=== PATIENT | female | born 1950 | race Caucasian/White ===

== ENCOUNTER 2022-04-06 08:14 | Outpatient (CLI) | payer MEDICARE, BC, SELFPAY ==
[2022-04-06 09:37] LABS: Albumin* 4.2 g/dL (3.3-5.0); Chloride* 104 mmol/L (96-114); Sodium* 140 mmol/L (135-149)
[2022-04-06 09:39] LABS: Carbon Dioxide* 33 mmol/L (20-32); Cholesterol* 191 mg/dL (90-199); Creatinine* 0.6 mg/dL (0.5-1.5); Estimated Glomerular Filt Rate 95 ml/min
[2022-04-06 09:40] LABS: Alanine Aminotransferase* 21 U/L (4-35); Alkaline Phosphatase* 95 U/L (40-150); Aspartate Amino Transferase* 26 U/L (12-35); Bilirubin Total* 0.8 mg/dL (0.1-1.5); Blood Urea Nitrogen* 14 mg/dL (7-30); Calcium* 8.9 mg/dL (8.4-10.6); Glucose* 89 mg/dL (60-115); HDL Cholesterol* 61 mg/dL (>=50); LDL Cholesterol Calculated 104 mg/dL (<100); Potassium* 4.1 mmol/L (3.6-5.1); Total Protein* 6.5 g/dL (6.0-8.3); Triglycerides* 130 mg/dL (40-149)
== END 2022-04-06 08:15 | disposition home or self-care (01) ==
LOC: NFLDREF 08:15
PROVIDERS: PCP Family Medicine; Visit Provider Internal Medicine
DX: E04.1 Nontoxic single thyroid nodule (principal); E78.5 Hyperlipidemia, unspecified; R07.9 Chest pain, unspecified
CPT/HCPCS: 76536; 80053; 80061

== ENCOUNTER 2023-08-01 11:36 | Outpatient (CLI) | payer MEDICARE, BC, SELFPAY ==
--- OUTSIDE RECORDS SUMMARY | 2023-08-01 11:39 | XMS_ITS | Clinical Summary ---
Author Name Unknown Organization [facility] Address [place], [place] [address] Care Team Providers Care Rehab Office Coordinator Name Role Phone Sandi Abdullahi MD Primary Care Provider + Family History Medical History Relation Name Comments Cancer-colon Paternal Grandfather Recurre d age 62. 70. Cancer-breast No Family History Cancer-ovarian No Family History Cancer-prostate No Family History Relation Name Status Comments Paternal Grandfather Social History Tobacco Use Types Packs/Day Years Used Date Smoking Tobacco: Never Assessed Sex and Gender Information Value Date Recorded Sex Assigned at Not on file Gender Identity Not on file Sexual Orientation Not on file Obstetrics History Plan of Treatment Health Maintenance Due Date Last Done Comments Tdap 1960 Depression screening for age 12+ 1961 BMI (ht and wt on same day) for age 18+ 05/27/1967 Hepatitis C screening for ag e 18-79 05/27/1967 Tetanus booster 1969 Colonoscopy through age 75 1994 Lipids for age 45-75 1994 Zoster (shingles) series for age 50+ (1 of 2) 05/27/1999 DEXA/DXA scan for age 65+ 2014 Pneumococcal series for age 65+ (1 of 1 - PCV) 2014 Mammogram for age 45-75 02/26/2020 02/26/20 19, 02/22/2018, 02/28/2017, Additional history exists COVID-19 vaccine series (2022-24 season) 2022 Influenza for age 65+ 11/25/2023 Procedures Procedure Name Priority Date/Time Associated Diagnosis Comments XR MAMMO ANN UNI SCREEN LEFT Routine 02/25/2019 11:36 AM RELIEF WORKER Visit for screening mammogram from Last 3 Months or Most Recently Relevant to Health Maintenance Results * XR MAMMO ANN UNI SCREEN LEFT (02/25/2019 11:36 AM RELIEF WORKER) Anatomical Region Laterality Modality BREASTS, Breast Left Left Mammography Impressions 02/25/2019 2:04 PM RELIEF WORKER ??There is no radiographic evidence for malignancy. ??Recommend annual mammograms. A lay language report of this examination will be provided to the patient. MAMMOGRAM ASSESSMENT: ??ACR 1 Negative Narrative 02/25/2019 2:04 PM RELIEF WORKER XR MAMMO ANN UNI SCREEN LEFT [[id number]] CLINICAL HISTORY: ??This is an asymptomatic 68 y.o. patient. INDICATION FOR EXAM: Mammogram Screening. TECHNIQUE: CC & MLO views were obtained. ??This digital study was evaluated with the assistance of Computer-Aided Detection. Breast Tomosynthesis was used in interpretation. COMPARISON FILM: Yes 02/22/18 [facility] 01/10/17 [facility] FINDINGS: ??Mammographically, the breast tissue is extremely dense. ??This may lower the sensitivity of mammography. ??There are no dominant masses, suspicious micro calcifications or areas of architectural distortion. Sandi Abdullahi MD MAMMO from Last 3 Months or Most Recently Relevant to Health Maintenance Care Teams Rehab Office Coordinator Relationship Specialty Start Date End Date Sandi Abdullahi MD [address] [place] [address] PCP - General Family Practice 02/08/17
== END 2023-08-01 11:37 | disposition home or self-care (01) ==
LOC: NFLDREF 11:38
PROVIDERS: PCP Family Medicine; Visit Provider Family Medicine
DX: R21 Rash and other nonspecific skin eruption (principal); Z11.3 Encounter for screening for infections with a predominantly sexual mode of transmission
CPT/HCPCS: 87529

== ENCOUNTER 2023-08-09 20:48 | Outpatient (CLI) | payer MEDICARE, BC, SELFPAY ==
--- OUTSIDE RECORDS SUMMARY | 2023-08-15 09:58 | XMS_ITS | Clinical Summary ---
Author Organization [employer] [facility] Address [place], [place] [address] Care Team Providers Care Data Manager Name Role Phone Sandi Abdullahi MD Primary Care Provider + Encounters Date Type Department Care Team Description 08/14/2023 Orders Only [facility] [address] [place] [address] Marcos Weber 1 scan: (1-Ord) Holter Report ([id number]) from Last 3 Months Family History Medical History Relation Name Comments [...] 02/28/2017, Additional history exists COVID-19 vaccine series (24 season) 2022 Influenza for age 65+ 11/25/2023 Procedures Procedure Name Priority Date/Time Associated Diagnosis Comments HOLTER MONITOR 48 HOURS Routine 08/15/2023 Syncope XR MAMMO ANN UNI SCREEN LEFT Routine 02/25/2019 11:36 AM HYDRAULIC STRAINER OPERATOR Visit for screening mammogram from Last 3 Months or Most Recently Relevant to Health Maintenance Results * HOLTER MONITOR 48 HOURS (08/15/2023) Mau Lawrence MD CARDIAC SERVICES ORD * XR MAMMO ANN UNI SCREEN LEFT (02/25/2019 11:36 AM HYDRAULIC STRAINER OPERATOR) Anatomical Region Laterality Modality BREASTS, Breast Left Left Mammography Impressions 02/25/2019 2:04 PM HYDRAULIC STRAINER OPERATOR ??There is no radiographic evidence for malignancy. ??Recommend annual mammograms. A lay language report of this examination will be provided to the patient. MAMMOGRAM ASSESSMENT: ??ACR 1 Negative Narrative 02/25/2019 2:04 PM HYDRAULIC STRAINER OPERATOR XR MAMMO ANN UNI SCREEN LEFT [[id number]] CLINICAL HISTORY: ??This is an asymptomatic 68 y.o. patient. INDICATION FOR EXAM: Mammogram Screening. TECHNIQUE: CC & MLO views were obtained. ??This digital study was evaluated with the assistance of Computer-Aided Detection. Breast Tomosynthesis was used in interpretation. COMPARISON FILM: Yes 02/22/18 [facility] 01/10/17 [facility] FINDINGS: ??Mammographically, the breast tissue is extremely dense. ??This may lower the sensitivity of mammography. ??There are no dominant masses, suspicious micro calcifications or areas of architectural distortion. Sandi Abdullahi MD MAMMO from Last 3 Months or Most Recently Relevant to Health Maintenance Care Teams Data Manager Relationship Specialty Start Date End Date Sandi Abdullahi MD [address] [place] [id number] PCP - General Family Practice 02/08/17
== END 2023-08-09 20:49 | disposition home or self-care (01) ==
LOC: AMB 08-15 09:57
PROVIDERS: PCP Family Medicine; Visit Provider Emergency Medicine Emergency Medical Services
DX: S09.93XA Unspecified injury of face, initial encounter (principal); R41.82 Altered mental status, unspecified; W18.30XA Fall on same level, unspecified, initial encounter; Y92.481 Parking lot as the place of occurrence of the external cause
CPT/HCPCS: A0425; A0427

== ENCOUNTER 2023-08-09 21:14 | Observation (INO) | payer MEDICARE, BC, SELFPAY ==
--- NOTE | 2023-08-09 21:17 | CT_ITS ---
Patient: ITALIA JETT Facility:?[facility] Patient ID:?[id number] Site Patient ID:?[id number] Site :?[id number] Study:?CT-Spine Cervical TRAUMA CODE-08/09/2023 9:29:06 PM Ordering Physician:?DR. DENT Final Report: Indication: FALL Technique: Noncontrast axial CT of the cervical spine with coronal and sagittal reformats are provided. Comparison: No prior studies available for comparison at this institution. Findings: The overall stature, alignment of the cervical spine is within normal limits. No fractures. Diffuse bone demineralization concerning for osteoporosis. Atlantoaxial degenerative changes. Prevertebral soft tissues, cervical airway, dens and lateral masses are within normal limits. Mild scattered degenerative changes of the cervical spine. Moderate right facet joint degenerative changes at C3-4. Mild cerumen in the external ear canals. Mild scarring at the lung apices. Impression: 1. No convincing radiographic evidence of acute osseous injury. 2. Scattered degenerative changes of the cervical spine. 3. Diffuse bone demineralization concerning for osteoporosis. Please note that all CT scans at this facility use dose modulation, iterative reconstruction, and/or weight-based dosing when appropriate to reduce radiation dose to as low as reasonably achievable. Dictated by Poncho Mckeon MD @ 08/09/2023 9:46:00 PM Signed by:?Poncho Mckeon MD @08/09/2023 9:46:00 PM (Electronic Signature)
--- NOTE | 2023-08-09 21:17 | CT_ITS ---
Patient: ITALIA JETT Facility:?[facility] Patient ID:?[id number] Site Patient ID:?[id number] Site :?[id number] Study:?CT-Head TRAUMA CODE-08/09/2023 9:28:35 PM Ordering Physician:?DR. DENT Final Report: INDICATION: Fall TECHNIQUE: CT of the head without contrast. Coronal and sagittal reformats. Bone and soft tissue algorithms. COMPARISON: No prior studies available for comparison at this institution. FINDINGS: Asymmetric prominence of extra-axial space along the right frontal and parietal convexity that does appear to be traversed by cortical veins in some places and may be a benign finding, given 4 millimeter leftward midline shift and slight decreased size of the right frontal horn, MRI should be considered to exclude subdural hygroma. Moderate generalized parenchymal volume loss. Moderate regions of decreased attenuation within the periventricular and subcortical white matter of both cerebral hemispheres most likely reflects chronic microvascular ischemic disease and age related change in this patient. Vascular calcifications within the carotid siphons. Orbital contents are normal. No calvarial fractures. No lytic or sclerotic osseous lesions within the calvarium or skull base. Scalp and other imaged soft tissue structures are normal. Mastoid air cells are clear. IMPRESSION: 1. No evidence of acute intracranial hemorrhage or infarct. No hydrocephalus. 2. Asymmetric prominence of extra-axial space along the right frontal and parietal convexity that does appear to be traversed by cortical veins in some places and may be a benign finding, given 4 millimeter leftward midline shift and slight decreased size of the right frontal horn, MRI should be considered to exclude subdural hygroma. 3. Moderate parenchymal volume loss and chronic small vessel ischemic changes. Please note that all CT scans at this facility use dose modulation, iterative reconstruction, and/or weight-based dosing when appropriate to reduce radiation dose to as low as reasonably achievable. Dictated by Poncho Mckeon MD @ 08/09/2023 9:43:34 PM Signed by:?Poncho Mckeon MD @08/09/2023 9:43:34 PM (Electronic Signature)
--- NOTE | 2023-08-09 21:19 | ED_ITS ---
HPI - General Adult General Chief complaint: Fall/Minor Trauma Stated complaint: fall Time Seen by Provider: 08/09/23 21:16 History of Present Illness HPI narrative: This 73-year-old female comes in by ambulance for evaluation after an injury that occurred prior to arrival. She does not remember what happened. She was found down is at a business place. She reports some discomfort in her face and jaw. She does not report a headache. She is not on any blood thinners. Related Data Home Medications Medication Instructions Recorded Confirmed cholecalciferol (vitamin D3) 25 25 mcg PO QDAY 07/27/23 08/01/23 mcg (1,000 unit) capsule mecobalamin (vitamin B12) 1,000 1,000 mcg PO QDAY 07/27/23 08/01/23 mcg lozenges vitamins A,C,S-lcup-nfgatz 4,296 1 cap PO BID 07/27/23 08/01/23 mcg-226 mg-90 mg capsule (PreserVision AREDS) Previous Rx's Medication Instructions Recorded mupirocin 2 % topical ointment 1 applic topical TID #22 grams 08/01/23 Allergies Allergy/AdvReac Type Severity Reaction Status Date / Time adhesive Allergy Severe Blister Verified 08/01/23 11:10 meperidine Allergy Severe Nightmare Verified 08/01/23 11:10 metoprolol Allergy Severe Confusion Verified 08/01/23 11:10 midazolam Allergy Severe cognitive Verified 08/01/23 11:10 impairment propoxyphene Allergy Severe Confusion Verified 08/01/23 11:10 ibuprofen Allergy Unknown Abdominal Verified 08/01/23 11:10 Pain PFSH PFSH Medical History (Updated 08/09/23 @ 22:14 by Gianfranco Dempsey MD) Thyroid nodule ?E04.1 - Nontoxic single thyroid nodule (ICD-10) Surgical History (Updated 04/03/22 @ 12:10 by Taylor Martinez PSR) History of right mastectomy (10/2003) ?Z90.11 - Acquired absence of right breast and nipple (ICD-10) History of hysterectomy with oophorectomy (08/2003) History of esophagogastroduodenoscopy (EGD) (2014) ?Z98.890 - Other specified postprocedural states (ICD-10) History of colonoscopy ?Z98.890 - Other specified postprocedural states (ICD-10) History of bilateral inguinal hernia repair (1999) ?Z98.890 - Other specified postprocedural states (ICD-10) ?Z87.19 - Personal history of other diseases of the digestive system (ICD-10) Family History (Updated 04/03/22 @ 12:17 by Taylor Toribio ~ PSR) Maternal Grandfather Diabetes Maternal Grandmother Diabetes Mother Gastric cancer Father Stroke Other Rectal cancer Social History (Updated 04/03/22 @ 12:21 by Taylor Toribio ~ PSR) Narrative: 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 Airway: Open. Breathing: Easy. Circulation: no obvious bleeding; normal capillary refill. Disability: GCS is 15. Normal pupillary response and motor movements. Secondary Survey: Head: Superficial abrasion on the lower lip. She reports some tenderness in the right cheek of her face. Neck: No midline tenderness. ROM intact. Chest: Non tender. No external signs of trauma. Abdomen: Non tender. No rebound tenderness. Normal bowel sounds. Pelvis/Genitals: No tenderness to A/P and lateral stress. No blood at the urethral meatus. Extremities: Atraumatic. Back: No midline tenderness. No sign of injury. Neuro: No facial asymmetry. Tongue is midline. Jaeqvg-vv-qilo is normal. No pronator drift. Head Of Quality strength is equal bilaterally. Able to raise each leg from the bed. Primary and Secondary surveys are completed. The patient's GCS is 15. [A decision to transfer this patient was made at ] Const: Vital Signs, click to edit/add: Vital Signs - 24 hr 08/09/23 21:32 08/09/23 21:42 Temperature 98.3 F Pulse Rate [Left P ulse Oximeter] 76 78 Respiratory Rate 11 L 16 Blood Pressure [Le ft Upper Arm] 162/83 H 161/80 H Pulse Oximetry 98 98 Oxygen Delivery Me thod Room Air Room Air Course Vital Signs Vital signs: Initial Vital Signs Temperature 98.3 F 08/09/23 21:32 Temperature Source Temporal Artery Scan 08/09/23 21:32 Pulse Rate 76 08/09/23 21:32 Respiratory Rate 11 L 08/09/23 21:32 Blood Pressure 162/83 H 08/09/23 21:32 Blood Pressure Mean 109 H 08/09/23 21:32 Blood Pressure Position Supine 08/09/23 21:32 Pulse Oximetry 98 08/09/23 21:32 Oxygen Delivery Method Room Air 08/09/23 21:32 Vital Signs Temperature 98.3 F 08/09/23 21:32 Pulse Rate 76 08/09/23 21:32 Respiratory Rate 11 L 08/09/23 21:32 Blood Pressure 162/83 H 08/09/23 21:32 Pulse Oximetry 98 08/09/23 21:32 Oxygen Delivery Method Room Air 08/09/23 21:32 Temperature 98.3 F 08/09/23 21:32 Pulse Rate 78 08/09/23 21:42 Respiratory Rate 16 08/09/23 21:42 Blood Pressure 161/80 H 08/09/23 21:42 Pulse Oximetry 98 08/09/23 21:42 Oxygen Delivery Method Room Air 08/09/23 21:42 Medical Decision Making MDM Narrative Medical decision making narrative: This patient comes in with trauma team activation because of a unwitnessed fall with loss of consciousness. She arrives with neurologic function intact and GCS is 15. Her face has an abrasion on the lower lip and ecchymosis over the right cheek. CT scan of the head and C-spine is obtained. C-collar was removed after C-spine clearance. The CT scan of the head shows no acute hemorrhage but there is suspicion of possible subdural hygroma a with a 4 mm midline shift. It is unclear whether this is new or old. The patient was asked if she had a previous scan and she took sometime to recount events as it seems that her thought processes are slowed. She states that she had a scan around 8 years ago after a fall but did not know of any abnormality from that scan or since then. Radiologist recommends an MRI for further evaluation. I did speak to the hospitalist on-call, Dr. Lawrence, who agrees to bring her in the hospital overnight and arrange for MRI in the morning. Imaging Data CT scan - head: Radiologist's impression: 1. No evidence of acute intracranial hemorrhage or infarct. No hydrocephalus. 2. Asymmetric prominence of extra-axial space along the right frontal and parietal convexity that does appear to be traversed by cortical veins in some places and may be a benign finding, given 4 millimeter leftward midline shift and slight decreased size of the right frontal horn, MRI should be considered to exclude subdural hygroma. 3. Moderate parenchymal volume loss and chronic small vessel ischemic changes. CT Cervical Spine: Radiologist's impression: 1. No convincing radiographic evidence of acute osseous injury. 2. Scattered degenerative changes of the cervical spine. 3. Diffuse bone demineralization concerning for osteoporosis. ECG Data Attestation: I personally reviewed and interpreted this ECG as follows: Interpretation: Normal sinus rhythm. Rate is 76 beats per minute. There are no ST or T-wave abnormalities. Discharge Plan Discharge Clinical Impression: Closed head injury Patient Disposition: Admitted As Observation Condition: Unchanged Prescriptions: No Action PreserVision AREDS 4,296 mcg-226 mg-90 mg capsule 1 cap PO BID cholecalciferol (vitamin D3) 25 mcg (1,000 unit) capsule 25 mcg PO QDAY mecobalamin (vitamin B12) 1,000 mcg lozenge 1,000 mcg PO QDAY Rx Instructions: allow to dissolve in mouth OR may chew lightly before swallowing mupirocin 2 % ointment 1 applic topical TID Qty: 22 0RF Follow Up/Referrals: Sandi Abdullahi MD [Primary Care Provider] -
[2023-08-09 21:32] VITALS: BP 162/83; PULSE 76; RESP 11; TEMP 36.8; O2SAT 98
[2023-08-09 21:42] VITALS: BP 161/80; PULSE 78; RESP 16; O2SAT 98
--- OUTSIDE RECORDS SUMMARY | 2023-08-09 22:07 | XMS_ITS | Clinical Summary ---
Author Name Unknown Organization [facility] Address [place], [place] [address] Care Team Providers Care Twist Packer Name Role Phone Sandi Abdullahi MD Primary [...] UNI SCREEN LEFT Routine 02/25/2019 11:36 AM TOMATO PASTE MAKER Visit for screening mammogram from Last 3 Months or Most Recently Relevant to Health Maintenance Results * XR MAMMO ANN UNI SCREEN LEFT (02/25/2019 11:36 AM TOMATO PASTE MAKER) Anatomical Region Laterality Modality BREASTS, Breast Left Left Mammography Impressions 02/25/2019 2:04 PM TOMATO PASTE MAKER ??There is no radiographic evidence for malignancy. ??Recommend annual mammograms. A lay language report of this examination will be provided to the patient. MAMMOGRAM ASSESSMENT: ??ACR 1 Negative Narrative 02/25/2019 2:04 PM TOMATO PASTE MAKER XR MAMMO ANN UNI SCREEN LEFT [[id number]] CLINICAL HISTORY: ??This is an asymptomatic 68 y.o. patient. INDICATION FOR EXAM: Mammogram Screening. TECHNIQUE: CC & MLO views were obtained. ??This digital study was evaluated with the assistance of Computer-Aided Detection. Breast Tomosynthesis was used in interpretation. COMPARISON FILM: Yes 02/22/18 [facility] 01/10/17 [facility] FINDINGS: ??Mammographically, the breast tissue is extremely dense. ??This may lower the sensitivity of mammography. ??There are no dominant masses, suspicious micro calcifications or areas of architectural distortion. Sandi Abdullahi MD MAMMO from Last 3 Months or Most Recently Relevant to Health Maintenance Insurance Payer Benefit Plan / Group Subscriber ID Effective Dates Phone Address Type MEDICARE PART A - HB USE ONLY MEDICARE PART A HB ONLY [id number] 2014-Presen t ATTN: CLAIMS [address] [place] [address] MEDICARE PART B - HB USE ONLY MEDICARE PART B HB ONLY [id number] 2017-Pres ent ATTN: CLAIMS [address] [place] [address] [facility] [id number] 2016-Presen t [address] [place] [address] Care Teams Twist Packer Relationship Specialty Start Date End Date Sandi Abdullahi MD [address] [place] [address] PCP - General Family Practice 02/08/17
[2023-08-09 22:17] LABS: Basophils Absolute Auto 0.07 K/uL (0.00-0.30); Basophils Percent Auto 1.1 % (0.0-3.0); Eosinophils Absolute Auto 0.09 K/uL (0.00-0.50); Eosinophils Percent Auto 1.4 % (0.0-7.0); Hematocrit 42.5 % (33.0-51.0); Immature Granulocytes Abs Auto 0.01 K/uL (0.00-0.30); Immature Granulocytes Pct Auto 0.2 %; Lymphocytes Absolute Auto 1.72 K/uL (0.90-2.90); Lymphocytes Percent Auto 26.8 % (20-44); Mean Corpuscular HGB Conc 33 gm/dL (32-36); Mean Corpuscular Hemoglobin 29 pg (26-34); Mean Corpuscular Volume 87 fL (80-100); Monocytes Percent Auto 6.9 % (0.0-11.0); Neutrophils Absolute Auto 4.09 K/uL (1.7-7.0); Neutrophils Percent Auto 63.6 % (42.0-72.0); Platelet Count* 181 K/uL (140-440); RDW Coefficient of Variation % 12.1 % (11.5-15.5); Red Blood Count 4.87 m/uL (4.00-5.20); White Blood Count* 6.42 K/uL (4.50-11.00)
[2023-08-09 22:18] LABS: Chloride* 102 mmol/L (96-114); Potassium* 3.3 mmol/L (3.6-5.1); Sodium* 138 mmol/L (135-149)
[2023-08-09 22:21] LABS: Anion Gap 8 mEq/L (7-15); Blood Urea Nitrogen* 14 mg/dL (7-30); Carbon Dioxide* 28 mmol/L (20-32); Creatinine* 0.7 mg/dL (0.5-1.5); Estimated Glomerular Filt Rate 91 ml/min
--- NOTE | 2023-08-09 22:21 | P.IMHP_ITS ---
Hospitalist- H&P: HPI History of Present Illness Date Seen: 08/09/23 Chief complaint: fall Narrative: Fredi Francis is a 73 year old female [facility] Medical History (Updated 08/09/23 @ 22:14 by Gianfranco Dent MD) Thyroid nodule ?E04.1 - Nontoxic single thyroid nodule (ICD-10) Surgical History (Updated 04/03/22 @ 12:10 by Taylor Toribio ~ PSR) History of right mastectomy (10/2003) ?Z90.11 - Acquired absence of right breast and nipple (ICD-10) History of hysterectomy with oophorectomy (08/2003) History of esophagogastroduodenoscopy (EGD) (2014) ?Z98.890 - Other specified postprocedural states (ICD-10) History of colonoscopy ?Z98.890 - Other specified postprocedural states (ICD-10) History of bilateral inguinal hernia repair (1999) ?Z98.890 - Other specified postprocedural states (ICD-10) ?Z87.19 - Personal history of other diseases of the digestive system (ICD-10) Family History (Updated 04/03/22 @ 12:17 by Taylor Toribio ~ PSR) Maternal Grandfather Diabetes Maternal Grandmother Diabetes Mother Gastric cancer Father Stroke Other Rectal cancer Social History (Updated 04/03/22 @ 12:21 by Taylor Toribio ~ PSR) Narrative: 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, 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, 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 originally from [place] Non smoker Does not drink alcohol vegetarian diet active lifestyle, walks dog, renovates house, gardening Smoking Status: Never smoker Meds Home Medications and Allergies Home Medications Medication Instructions Recorded Confirmed Type cholecalciferol (vitamin D3) 25 25 mcg PO QDAY 07/27/23 08/01/23 History mcg (1,000 unit) capsule mecobalamin (vitamin B12) 1,000 1,000 mcg PO QDAY 07/27/23 08/01/23 History mcg lozenges vitamins A,C,M-wzlb-gmpzfy 4,296 1 cap PO BID 07/27/23 08/01/23 History mcg-226 mg-90 mg capsule (PreserVision AREDS) Allergies Allergy/AdvReac Type Severity Reaction Status Date / Time adhesive Allergy Severe Blister Verified 08/01/23 11:10 meperidine Allergy Severe Nightmare Verified 08/01/23 11:10 metoprolol Allergy Severe Confusion Verified 08/01/23 11:10 midazolam Allergy Severe cognitive Verified 08/01/23 11:10 impairment propoxyphene Allergy Severe Confusion Verified 08/01/23 11:10 ibuprofen Allergy Unknown Abdominal Verified 08/01/23 11:10 Pain Exam Const: Vital Signs, click to edit/add: Vital Signs - 24 hr 08/09/23 21:32 08/09/23 21:42 Temperature 98.3 F Pulse Rate [Left P ulse Oximeter] 76 78 Respiratory Rate 11 L 16 Blood Pressure [Le ft Upper Arm] 162/83 H 161/80 H Pulse Oximetry 98 98 Oxygen Delivery Me thod Room Air Room Air Hospitalist - H&P: Result Imaging CT scan - head: Radiologist's impression: Final Report: INDICATION: Fall TECHNIQUE: CT of the head without contrast. Coronal and sagittal reformats. Bone and soft tissue algorithms. COMPARISON: No prior studies available for comparison at this institution. FINDINGS: Asymmetric prominence of extra-axial space along the right frontal and parietal convexity that does appear to be traversed by cortical veins in some places and may be a benign finding, given 4 millimeter leftward midline shift and slight decreased size of the right frontal horn, MRI should be considered to exclude subdural hygroma. Moderate generalized parenchymal volume loss. Moderate regions of decreased attenuation within the periventricular and subcortical white matter of both cerebral hemispheres most likely reflects chronic microvascular ischemic disease and age related change in this patient. Vascular calcifications within the carotid siphons. Orbital contents are normal. No calvarial fractures. No lytic or sclerotic osseous lesions within the calvarium or skull base. Scalp and other imaged soft tissue structures are normal. Mastoid air cells are clear. IMPRESSION: 1. No evidence of acute intracranial hemorrhage or infarct. No hydrocephalus. 2. Asymmetric prominence of extra-axial space along the right frontal and parietal convexity that does appear to be traversed by cortical veins in some places and may be a benign finding, given 4 millimeter leftward midline shift and slight decreased size of the right frontal horn, MRI should be considered to exclude subdural hygroma. 3. Moderate parenchymal volume loss and chronic small vessel ischemic changes. CT- Other: Radiologist's impression: Study:?CT-Spine Cervical TRAUMA CODE-08/09/2023 9:29:06 PM Ordering Physician:?DR. DENT Final Report: Indication: FALL Technique: Noncontrast axial CT of the cervical spine with coronal and sagittal reformats are provided. Comparison: No prior studies available for comparison at this institution. Findings: The overall stature, alignment of the cervical spine is within normal limits. No fractures. Diffuse bone demineralization concerning for osteoporosis. Atlantoaxial degenerative changes. Prevertebral soft tissues, cervical airway, dens and lateral masses are within normal limits. Mild scattered degenerative changes of the cervical spine. Moderate right facet joint degenerative changes at C3-4. Mild cerumen in the external ear canals. Mild scarring at the lung apices. Impression: 1. No convincing radiographic evidence of acute osseous injury. 2. Scattered degenerative changes of the cervical spine. 3. Diffuse bone demineralization concerning for osteoporosis.
[2023-08-09 22:22] LABS: Calcium* 8.8 mg/dL (8.4-10.6); Glucose* 106 mg/dL (60-115)
[2023-08-09 22:28] LABS: Slide Review Reflex No
[2023-08-09 22:52] VITALS: BP 158/80; PULSE 83; RESP 16; TEMP 36.6; O2SAT 98
--- NOTE | 2023-08-09 22:55 | PC.NURSE ---
Pt on phone with sister, states she remembers where she went today, why she went to store. Still has some memory loss but its coming back. Pt states pain left jaw and right cheek abrasion. Declines tylenol or ice pack at this time. Warm blanket given. Pt VSS, c-collar cleared and off.
[2023-08-09] MEDS: POTASSIUM BICARB 25 MEQ EFFERVESCENT TAB PO (23:02)
--- NOTE | 2023-08-09 23:05 | PM.IMHP1 ---
Hospitalist- H&P: HPI History of Present Illness Date Seen: 08/09/23 Chief complaint: fall Narrative: Fredi Francis is a 73 year old female admitted through the emergency department after an episode of loss of consciousness and head injury. This evening she was found down and unconscious with evidence of head injury in the parking lot at [employer]. Currently no witnesses are available. Patient has no recollection events just prior to falling and losing consciousness. She reports she was feeling well today and feels well now other than a mild headache and jaw ache. But she does remember is as follows: She had visited her sister in [place] for the last 2 days. She came home and found a stray kitten in her garage. She went to [employer] to by pet supplies to care for the kitten. She believes that she brought them to her car but does not remember anything after that until she was in the ambulance. In the emergency department she was evaluated. There was some apparent confusion along with her amnesia for recent events. Neurologic evaluation was otherwise unremarkable. CT head imaging showed an abnormality in the right frontal parietal area. The radiologist recommended obtaining an MRI to further evaluate. During her time in the emergency department she appeared to clear her confusion. She had a head injury in about 2013 in [place]. She had a CT scan of her head at that time which was normal by her recollection. She has had no other previous problems with falls or loss of consciousness or seizures. She does not take antiplatelet agents or anticoagulants. Review of Systems Narrative: Review of systems is unremarkable except as noted above [facility] Medical History (Updated 08/09/23 @ 23:22 by Mau Lawrence MD) Concussion ?S06.0XAA - Concussion with loss of consciousness status unknown, initial encounter (ICD-10) Closed head injury ?S09.90XA - Unspecified injury of head, initial encounter (ICD-10) Vitamin D deficiency ?E55.9 - Vitamin D deficiency, unspecified (ICD-10) Tubular adenoma (2017) ?D36.9 - Benign neoplasm, unspecified site (ICD-10) Polyp of colon (11/2014) ?K63.5 - Polyp of colon (ICD-10) Migraine headache ?G43.909 - Migraine, unspecified, not intractable, without status migrainosus (ICD-10) Malignant neoplasm of right breast (2003) ?C50.911 - Malignant neoplasm of unspecified site of right female breast (ICD-10) Macular degeneration ?H35.30 - Unspecified macular degeneration (ICD-10) Low vitamin B12 level ?E53.8 - Deficiency of other specified B group vitamins (ICD-10) Herpes zoster ?B02.9 - Zoster without complications (ICD-10) Chest pain (11/2020) ?R07.9 - Chest pain, unspecified (ICD-10) Abdominal discomfort ?R10.9 - Unspecified abdominal pain (ICD-10) Thyroid nodule ?E04.1 - Nontoxic single thyroid nodule (ICD-10) Surgical History History of right mastectomy (10/2003) ?Z90.11 - Acquired absence of right breast and nipple (ICD-10) History of hysterectomy with oophorectomy (08/2003) History of esophagogastroduodenoscopy (EGD) (2014) ?Z98.890 - Other specified postprocedural states (ICD-10) History of colonoscopy ?Z98.890 - Other specified postprocedural states (ICD-10) History of bilateral inguinal hernia repair (1999) ?Z98.890 - Other specified postprocedural states (ICD-10) ?Z87.19 - Personal history of other diseases of the digestive system (ICD-10) Family History Maternal Grandfather Diabetes Maternal Grandmother Diabetes Mother Gastric cancer Father Stroke Other Rectal cancer Social History (Updated 08/09/23 @ 23:15 by Mau Lawrence MD) 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 She lives alone in [place]. She has a sister in [facility] and a niece in [place] originally from [place] Non smoker Does not drink alcohol vegetarian diet active lifestyle, walks dog, [employer] house, gardening Sister, Mason, from [place] is healthcare power of traffic law attorney. Code status is DNR Smoking Status: Never smoker Do you use any of these nicotine containing products: None Second hand tobacco smoke exposure: No How often do you have a drink containing alcohol: never How often do you have six or more drinks on one occasion: Never AUDIT-C Alcohol total score: 0 Non-prescribed substance use: denies use service: No Meds Home Medications and Allergies Home Medications Medication Instructions Recorded Confirmed Type cholecalciferol (vitamin D3) 25 25 mcg PO QDAY 07/27/23 08/01/23 History mcg (1,000 unit) capsule mecobalamin (vitamin B12) 1,000 1,000 mcg PO QDAY 07/27/23 08/01/23 History mcg lozenges vitamins A,C,G-elaq-zivies 4,296 1 cap PO BID 07/27/23 08/01/23 History mcg-226 mg-90 mg capsule (PreserVision AREDS) Allergies Allergy/AdvReac Type Severity Reaction Status Date / Time adhesive Allergy Severe Blister Verified 08/01/23 11:10 meperidine Allergy Severe Nightmare Verified 08/01/23 11:10 metoprolol Allergy Severe Confusion Verified 08/01/23 11:10 midazolam Allergy Severe cognitive Verified 08/01/23 11:10 impairment propoxyphene Allergy Severe Confusion Verified 08/01/23 11:10 ibuprofen Allergy Unknown Abdominal Verified 08/01/23 11:10 Pain Exam Narrative: Exam Narrative: She is alert and oriented to her circumstances. She has superficial abrasions on her face, right cheek, right chin, right upper lip. No other palpable or observable evidence of trauma. Eyes are normal. Extraocular movements are full. Pupils are equal round reactive to light. Visual barger are intact. No facial asymmetry. Oropharynx is normal. No obvious dental injury, tongue or cheek laceration. She has some discomfort in her left TMJ with opening and closing her mouth but no trismus. No obvious palpable deformity over her TMJ or mandible. Neck is supple without mass or adenopathy or tenderness. No posterior tenderness specifically. Respirations are clear to auscultation. Good air exchange all lung barger. Cardiovascular: S1, S2, regular rate and rhythm. No murmur gallop or rub. Abdomen: Bowel sounds active. Abdomen is soft without tenderness or mass. All 4 extremities are normal on inspection except for superficial abrasions on her right knee. All 4 extremities with good pulses and good capillary refill. Strength testing in all 4 extremities is 5/5 including shoulder flexion extension, elbow flexion and extension, wrist flexion and extension, finger extension, narrow fabrics weaver strength, hip flexion, knee flexion and extension, ankle dorsiflexion and plantar flexion. Qvyxrz-bcbn-lyinfz is normal and accurate. Const: Vital Signs, click to edit/add: Vital Signs - 24 hr 08/09/23 21:32 08/09/23 21:42 08/09/23 22:52 Temperature 98.3 F 97.8 F Pulse Rate [Left P ulse Oximeter] 76 78 83 Respiratory Rate 11 L 16 16 Blood Pressure [Le ft Upper Arm] 162/83 H 161/80 H 158/80 H Pulse Oximetry 98 98 98 Oxygen Delivery Me thod Room Air Room Air Room Air Documenting provider has reviewed patient's vital signs: yes Hospitalist - H&P: Result Labs Labs: Short CBC 08/09/23 Range/Units 21:40 WBC 6.42 (4.50-11.00) K/uL Hgb 14.0 (12.0-16.0) gm/dL Hct 42.5 (33.0-51.0) % Plt Count 181 (140-440) K/uL BMP 08/09/23 21:40 Sodium 138 Potassium 3.3 L Chloride 102 Carbon Dioxide 28 BUN 14 Creatinine 0.7 Glucose [address] scan - head: Radiologist's impression: Study:?CT-Head TRAUMA CODE-08/09/2023 9:28:35 PM Ordering Physician:?DR. DENT Final Report: INDICATION: Fall TECHNIQUE: CT of the head without contrast. Coronal and sagittal reformats. Bone and soft tissue algorithms. COMPARISON: No prior studies available for comparison at this institution. FINDINGS: Asymmetric prominence of extra-axial space along the right frontal and parietal convexity that does appear to be traversed by cortical veins in some places and may be a benign finding, given 4 millimeter leftward midline shift and slight decreased size of the right frontal horn, MRI should be considered to exclude subdural hygroma. Moderate generalized parenchymal volume loss. Moderate regions of decreased attenuation within the periventricular and subcortical white matter of both cerebral hemispheres most likely reflects chronic microvascular ischemic disease and age related change in this patient. Vascular calcifications within the carotid siphons. Orbital contents are normal. No calvarial fractures. No lytic or sclerotic osseous lesions within the calvarium or skull base. Scalp and other imaged soft tissue structures are normal. Mastoid air cells are clear. IMPRESSION: 1. No evidence of acute intracranial hemorrhage or infarct. No hydrocephalus. 2. Asymmetric prominence of extra-axial space along the right frontal and parietal convexity that does appear to be traversed by cortical veins in some places and may be a benign finding, given 4 millimeter leftward midline shift and slight decreased size of the right frontal horn, MRI should be considered to exclude subdural hygroma. 3. Moderate parenchymal volume loss and chronic small vessel ischemic changes. CT- Other: Radiologist's impression: Study:?CT-Spine Cervical TRAUMA CODE-08/09/2023 9:29:06 PM Ordering Physician:?DR. DENT Final Report: Indication: FALL Technique: Noncontrast axial CT of the cervical spine with coronal and sagittal reformats are provided. Comparison: No prior studies available for comparison at this institution. Findings: The overall stature, alignment of the cervical spine is within normal limits. No fractures. Diffuse bone demineralization concerning for osteoporosis. Atlantoaxial degenerative changes. Prevertebral soft tissues, cervical airway, dens and lateral masses are within normal limits. Mild scattered degenerative changes of the cervical spine. Moderate right facet joint degenerative changes at C3-4. Mild cerumen in the external ear canals. Mild scarring at the lung apices. Impression: 1. No convincing radiographic evidence of acute osseous injury. 2. Scattered degenerative changes of the cervical spine. 3. Diffuse bone demineralization concerning for osteoporosis. Assessment and Plan Assessment and plan (1) Concussion: Problem comment: Had some confusion and amnesia representing concussion. Status: Acute (2) Loss of consciousness: Problem comment: The nature of the loss of consciousness is uncertain. No witnesses to determine whether this was syncope or seizure or a sequelae of head trauma. Status: Acute (3) Abnormal head CT: Problem comment: Obtain MRI in the morning Status: Acute Plan Patient will be admitted to hospital observation for concussion and head injury. Evaluation the morning with MRI of the head as well as therapy to assess functional status with her concussion. Anticipate discharge to home to independent living if she is doing well. Total Time Spent Total Time Spent: Total time spent today is 60 minutes, 40 minutes in coordination of care discussing with patient and other providers ongoing management of head injury
--- NOTE | 2023-08-09 23:38 | PC.NURSE ---
Report given to DICK Bermeo. Pt taken to med/surg 249.
[2023-08-10] VITALS (7 sets, daily range): BP systolic 117–138; BP diastolic 62–80; PULSE 74–106; RESP 16–20; TEMP 36.8–37.5; O2SAT 96–98; BMI 18.9
[2023-08-10 06:33] LABS: Chloride* 107 mmol/L (96-114); Potassium* 3.5 mmol/L (3.6-5.1); Sodium* 138 mmol/L (135-149)
[2023-08-10 06:36] LABS: Anion Gap 4 mEq/L (7-15); Blood Urea Nitrogen* 12 mg/dL (7-30); Carbon Dioxide* 27 mmol/L (20-32); Creatinine* 0.5 mg/dL (0.5-1.5); Est. Creatinine Clearance* 45.34; Estimated Glomerular Filt Rate 98 ml/min; Glucose* 93 mg/dL (60-115)
[2023-08-10 06:37] LABS: Calcium* 8.5 mg/dL (8.4-10.6)
--- NOTE | 2023-08-10 08:38 | PC.NURSE ---
Patient arrived on med/surg last night at 2347 from ED. Pt pleasant, alert and oriented. Somewhat unsteady with ambulating. Transfers with gait belt and stand by assist.?Reports having a?headache rated 3/10 during the night. Declined PRN pain medications when offered. Ortho BPs: Lying BP 127/80 HR 106; Sitting BP 131/74 HR 89; Standing BP 127/80 HR 85. Pt reported feeling ?Woozy? when sitting up from lying position. Denied any symptoms when standing. ?
[2023-08-10] MEDS: SODIUM CHLORIDE 0.9 % (FLUSH) 10 ML SYRINGE 5 ML IVF (13:39)
--- NOTE | 2023-08-10 15:39 | P.DS_ITS ---
DS: Providers Provider Date Seen: 08/10/23 Date of admission: 08/09/23 22:10 Primary care physician: Sandi Abdullahi MD Admitting Clinician: Mau Lawrence MD Consults: 08/09/23 22:49 Consult to Occupational Therapy [CONS] Routine Comment: Reason(s) for OT Consult:: Evaluate and Treat Any Restrictions?:: No Restrictions Consult to Physical Therapy [CONS] Routine Comment: Reason(s) for PT Consult:: Evaluate and Treat Any Restrictions?:: No Restrictions 08/10/23 05:03 Consult to Physical Therapy [CONS] Routine Comment: Reason(s) for PT Consult:: Evaluate and Treat Any Restrictions?:: No Restrictions Attending Physician on discharge: Laisha Rivers [facility] Date of Discharge: 08/10/23 DS: Diagnosis Discharge Diagnosis (1) Concussion: Status: Acute Problem details: Had some confusion and amnesia representing concussion. MRI 08/[address] Orellana, [facility] Neurology, appears to be chronic findings, nothing acute, no concern for midline shift or mass effect. Recommends outpatient neurology follow-up for resolution, repeat imaging if necessary. Recommend no driving until follow-up with PCP. Rest, no strenuous activity. (2) Loss of consciousness: Status: Acute Problem details: The nature of the loss of consciousness is uncertain. No witnesses to determine whether this was syncope or seizure or a sequelae of head trauma. Patient reported feeling pressure sensation in chest while working with OT. Reports this has been intermittently occurring for years, previously worked up with PCP, previous Holter monitor without abnormal findings. We reviewed telemetry without evidence of abnormalities during this time. 48 hour Holter monitor placed prior to discharge, outpatient follow-up with PCP. Consider outpatient cardiology, possible GI follow-up if esophageal in nature. Patient and her sister plan to ask [employer] security to review her fall in the parking lot from the camera point of view for more information. Will follow up with PCP with these findings. (3) Abnormal head CT: Status: Acute Problem details: Obtain MRI in the morning. Discussed with Neurology as above (4) Jaw pain: Status: Acute Problem details: Left side, status post fall, hitting right side of head. Able to speak and chew without difficulty. CT to mastoid region unremarkable. Tylenol as needed. Follow-up with PCP if no resolved. (5) Facial abrasion: Status: Acute Problem details: Gentle cleansing, monitor DS: Summary Hospital Course Hospital Course: [age] year old female admitted overnight for observation following fall with loss of consciousness, concussion. Course of care and details as noted above. No new or worsening symptoms, telemetry unremarkable, MRI reviewed with Neurology. Close outpatient follow-up with PCP. Holter monitor in place. Remainder of chronic medical comorbidities were monitored and managed with home medications. Time Spent with Patient Time attestation: Total time spent providing and/or coordinating discharge services: Exam Narrative: Exam Narrative: PHYSICAL EXAM General: Pleasant, conversant, NAD HEENT: Facial abrasions noted, healing appropriately. No difficulty chewing, speaking, jar range of motion intact Cardiovascular: RRR Pulmonary: No dyspnea Neurological: Alert, answering questions appropriately. No focal findings Skin: Warm, dry. Const: Vital Signs, click to edit/add: Vital Signs - 24 hr 08/09/23 21:32 08/09/23 21:42 08/09/23 22:52 Temperature 98.3 F 97.8 F Pulse Rate Pulse Rate [Left P ulse Oximeter] 76 78 83 Pulse Rate [Pulse Oximeter] Pulse Rate [orthos tatic lying] Pulse Rate [orthos tatic sitting] Pulse Rate [orthos tatic standing] Respiratory Rate 11 L 16 16 Blood Pressure [Le ft Arm] Blood Pressure [Le ft Upper Arm] 162/83 H 161/80 H 158/80 H Blood Pressure [or thostatic lying] Blood Pressure [or thostatic sitting] Blood Pressure [or thostatic standing ] Pulse Oximetry 98 98 98 Oxygen Delivery Me thod Room Air Room Air Room Air 08/10/23 00:15 08/10/23 02:35 08/10/23 03:00 Temperature 98.5 F Pulse Rate Pulse Rate [Left P ulse Oximeter] Pulse Rate [Pulse Oximeter] 81 85 Pulse Rate [orthos tatic lying] 85 Pulse Rate [orthos tatic sitting] 89 Pulse Rate [orthos tatic standing] 106 H Respiratory Rate 18 20 Blood Pressure [Le ft Arm] 134/62 138/69 Blood Pressure [Le ft Upper Arm] Blood Pressure [or thostatic lying] 138/69 Blood Pressure [or thostatic sitting] 131/74 Blood Pressure [or thostatic standing ] 127/80 Pulse Oximetry 98 97 Oxygen Delivery Me thod Room Air Room Air 08/10/23 04:20 08/10/23 07:00 08/10/23 07:00 Temperature Pulse Rate 74 76 Pulse Rate [Left P ulse Oximeter] Pulse Rate [Pulse Oximeter] 84 Pulse Rate [orthos tatic lying] Pulse Rate [orthos tatic sitting] Pulse Rate [orthos tatic standing] Respiratory Rate 16 Blood Pressure [Le ft Arm] Blood Pressure [Le ft Upper Arm] Blood Pressure [or thostatic lying] Blood Pressure [or thostatic sitting] Blood Pressure [or thostatic standing ] Pulse Oximetry Oxygen Delivery Me thod 08/10/23 07:00 08/10/23 11:00 08/10/23 15:00 Temperature 98.2 F 98.8 F 99.5 F Pulse Rate Pulse Rate [Left P ulse Oximeter] Pulse Rate [Pulse Oximeter] 84 84 98 Pulse Rate [orthos tatic lying] Pulse Rate [orthos tatic sitting] Pulse Rate [orthos tatic standing] Respiratory Rate 18 16 16 Blood Pressure [Le ft Arm] 130/72 132/78 117/64 Blood Pressure [Le ft Upper Arm] Blood Pressure [or thostatic lying] Blood Pressure [or thostatic sitting] Blood Pressure [or thostatic standing ] Pulse Oximetry 96 96 98 Oxygen Delivery Oh thod Room Air DS: Data Data Completed and Pending Labs on day of discharge: Labs from last 24 hours 08/10/23 08/09/23 05:57 21:40 WBC 6.42 RBC 4.87 Hgb 14.0 Hct 42.5 MCV 87 MCH 29 MCHC 33 RDW Coeff of Amando 12.1 Plt Count 181 Neut % (Auto) 63.6 Lymph % (Auto) 26.8 Grimes % (Auto) 6.9 Eos % (Auto) 1.4 Baso % (Auto) 1.1 Neut # (Auto) 4.09 Lymph # (Auto) 1.72 Grimes # (Auto) 0.40 Eos # (Auto) 0.09 Baso # (Auto) 0.07 Abs Immat Gran (auto) 0.01 Imm/Tot Granulo (auto) 0.2 Sodium 138 138 Potassium 3.5 L 3.3 L Chloride 107 102 Carbon Dioxide 27 28 Anion Gap 4 L 8 BUN 12 14 Creatinine 0.5 0.7 Estimated Creat Clear 45.34 Estimated GFR 98 91 Glucose 93 106 Calcium 8.5 8.8 Discharge Plan Discharge Disposition: Home, Self-Care Date of Admission: 08/09/23 22:10 Attending Provider on Discharge: Laisha Rivers Primary Care Provider: Sandi Abdullahi Condition: Unchanged Anticipated Discharge Date/Time: 08/10/23 15:27 Discharge Medications: Continued PreserVision AREDS 4,296 mcg-226 mg-90 mg capsule 1 cap PO BID cholecalciferol (vitamin D3) 25 mcg (1,000 unit) capsule 25 mcg PO QDAY mecobalamin (vitamin B12) 1,000 mcg lozenge 1,000 mcg PO QDAY Rx Instructions: allow to dissolve in mouth OR may chew lightly before swallowing mupirocin 2 % ointment 1 applic topical TID Qty: 22 0RF Discharge Orders: Discharge Order (Routine); Ordered 08/10/23 Ordered By: Laisha Rivers Patient Education: Concussion (GEN) Additional Instructions: Recommend no driving until re-evaluation with your PCP Rest, avoiding strenuous activity. Tylenol as needed. You have a Holter monitor on. Return to imaging as instructed. Close outpatient follow-up with PCP Activity Level: No strenuous activity Discharge Diet: Regular Follow Up Appointments: Sandi Abdullahi MD [Primary Care Provider] - (Post hospital follow up 3-5 days, fall, concussion. Holter monitor. ) Forms: [facility] Info Instructions
--- NOTE | 2023-08-10 17:09 | PC.NURSE ---
Discharge: Patient VSS. Patient alert and oriented. Tolerated a regular, vegetarian diet. Ambulated independently in room and bathroom. No complications with voiding. Patient complained of head pain described as tight pressure on the top of head. Patient complained of left jaw pain due to fall. Patient refused to take any pain medications for relief. Patient discharged at 1700 via wheelchair. Discharge education given and paperwork signed by patient and RN.
--- NOTE | 2023-08-10 23:01 | MR_ITS ---
Patient: ITALIA JETT Facility:?[facility] Patient ID:?[id number] Site Patient ID:?[id number]. Site :?[id number] Study:?MRI-Head W/ and W/O Cont 20 CC DOATERM-08/10/2023 12:52:22 PM Ordering Physician:?CRISTY WISEMAN Final Report: Indication: Abnormal CT. Technique: Multiplanar, multisequence MRI of the brain was performed without and with intravenous contrast. Contrast: 20 cc Dotarem. Comparison: None relevant available at this institution. Findings: There is a thin subdural collection along the right frontoparietal convexity which demonstrates complete suppression on FLAIR sequence. There is mild mass effect with 4 mm leftward midline shift. There is thickening and enhancement of the overlying dura, presumed reactive. The corpus callosum and pituitary gland appear unremarkable. Mild degenerative change visualized upper cervical spine. There is no restricted diffusion. The ventricles are proportionate to the cerebral sulci. The 4th ventricle appears midline. The basal cisterns appear patent. Moderate parenchymal volume loss. Fgis-ot-ptsthztq T2 FLAIR hyperintense foci within the subcortical and periventricular white matter, favored to represent chronic ischemic microvascular disease. No intracranial mass. Major intracranial vascular flow voids appear grossly intact. Thinning of the ocular lenses. Impression: 1. Thin right frontoparietal subdural hygroma. Mild mass effect, with slight leftward midline shift. 2. No acute/subacute infarct. 3. Mild to moderate chronic ischemic microvascular disease. Dictated by Fadi Brown MD @ 08/10/2023 1:15:33 PM Signed by:?Fadi Brown MD @08/10/2023 1:15:33 PM (Electronic Signature)
== END 2023-08-10 17:00 | disposition home or self-care (01) ==
LOC: ED 22:14 → MEDSURG 23:39
PROVIDERS: Admitting Provider Family Medicine; Emergency Provider Emergency Medicine Emergency Medical Services; PCP Family Medicine; Visit Provider Physician Assistant
DX: S06.0XAA Concussion with loss of consciousness status unknown, initial encounter (principal); R93.0 Abnormal findings on diagnostic imaging of skull and head, not elsewhere classified; R68.84 Jaw pain; S00.81XA Abrasion of other part of head, initial encounter
CPT/HCPCS: 36415; 70450; 70553; 72125; 80048; 85025; 93005; 93225; 93226; 97161; 97165; 97530; 97535; 99284; 99285; 99291; G0378; A9270; A9575; G0390

== ENCOUNTER 2023-08-23 12:01 | Outpatient (RCR) | payer MEDICARE, BC, SELFPAY | END 2023-12-21 23:59 | disposition home or self-care (01) | PROVIDERS: PCP Family Medicine; Visit Provider Family Medicine | DX: S06.0XAA Concussion with loss of consciousness status unknown, initial encounter (principal); Z51.89 Encounter for other specified aftercare | CPT/HCPCS: 97165 ==

== ENCOUNTER 2023-09-03 09:07 | Outpatient (CLI) | payer MEDICARE, BC, SELFPAY ==
--- OUTSIDE RECORDS SUMMARY | 2023-09-03 09:09 | XMS_ITS | Clinical Summary ---
Author Organization [employer] [facility] [employer] Address [place], [place] [address] Care Team Providers Care Ribbon Hanking Machine Operator Name Role Phone Sandi Abdullahi MD Primary Care Provider + Encounters Date Type Department Care Team Description 08/14/2023 1:01 PM CDT - 08/14/2023 11:59 PM CDT Hospital Encounter [facility] [address] [place] [address] Mau Lawrence MD 08/14/2023 Orders Only [facility] [address] [place] [address] Marcos Weber 1 scan: (1-Ord) Holter Report ([id number]) 08/10/2023 11:07 AM CDT - 08/10/2023 11:59 PM CDT Hospital Encounter [facility] [address] [place] [address] Mau Lawrence MD from Last 3 Months Family History Medical [...] Diagnosis Comments HOLTER MONITOR 48 HOURS Routine 08/14/2023 12:00 AM CDT Syncope XR MAMMO ANN UNI SCREEN LEFT Routine 02/25/2019 11:36 AM TARPER Visit for screening mammogram from Last 3 Months or Most Recently Relevant to Health Maintenance Results * HOLTER MONITOR 48 HOURS (08/14/2023 12:00 AM CDT) Mau Lawrence MD CARDIAC SERVICES ORD * XR MAMMO ANN UNI SCREEN LEFT (02/25/2019 11:36 AM TARPER) Anatomical Region Laterality Modality BREASTS, Breast Left Left Mammography Impressions 02/25/2019 2:04 PM TARPER ??There is no radiographic evidence for malignancy. ??Recommend annual mammograms. A lay language report of this examination will be provided to the patient. MAMMOGRAM ASSESSMENT: ??ACR 1 Negative Narrative 02/25/2019 2:04 PM TARPER XR MAMMO ANN UNI SCREEN LEFT [[id number]] CLINICAL HISTORY: ??This is an asymptomatic 68 y.o. patient. INDICATION FOR EXAM: Mammogram Screening. TECHNIQUE: CC & MLO views were obtained. ??This digital study was evaluated with the assistance of Computer-Aided Detection. Breast Tomosynthesis was used in interpretation. COMPARISON FILM: Yes 02/22/18 [facility] 01/10/17 [facility] FINDINGS: ??Mammographically, the breast tissue is extremely dense. ??This may lower the sensitivity of mammography. ??There are no dominant masses, suspicious micro calcifications or areas of architectural distortion. Sandi Abdullahi MD MAMMO from Last 3 Months or Most Recently Relevant to Health Maintenance Care Teams Ribbon Hanking Machine Operator Relationship Specialty Start Date End Date Sandi Abdullahi MD [address] [place] [address] PCP - General Family Practice 02/08/17
--- NOTE | 2023-09-03 09:15 | CRLHL7_ITS ---
For Patients: As a result of the Century Cures Act, medical imaging exams and procedure reports are released immediately into your electronic medical record. You may view this report before your referring provider. If you have questions, please contact your health care provider. BILATERAL DIGITAL SCREENING MAMMOGRAM WITH COMPUTER-AIDED DETECTION AND TOMOSYNTHESIS CLINICAL HISTORY: Routine screening exam. COMPARISON: 08/31/2022, 08/08/2021, 05/12/2020. TECHNIQUE: Digital mammogram in CC and MLO projections including computer-aided detection (CAD). Tomosynthesis was used in this interpretation. BREAST COMPOSITION: The breasts are heterogeneously dense, which may obscure small masses. FINDINGS: LEFT Breast: Cluster of microcalcifications lateral LEFT breast 6 cm from the nipple. RIGHT Breast: No suspicious findings. IMPRESSION: LEFT Breast calcifications. RECOMMENDATIONS: Spot compression magnification views of the calcifications in the LEFT breast in CC and ML projections. BI-RADS Category 0: Incomplete: Need additional Imaging Evaluation and/or Prior Mammograms for Comparison [facility] will contact the patient for follow-up. A lay language report of this examination will be provided to the patient. Dictated by Poncho Garay MD @ 09/03/2023 11:05:29 AM jj/Dictated by: Poncho Garay MD @ 09/03/2023 11:05:00 AM (Electronically Signed)
== END 2023-09-03 09:08 | disposition home or self-care (01) ==
LOC: MAMMO 09:08
PROVIDERS: PCP Family Medicine; Visit Provider Family Medicine
DX: Z12.31 Encounter for screening mammogram for malignant neoplasm of breast (principal); R92.1 Mammographic calcification found on diagnostic imaging of breast; R92.2 Inconclusive mammogram
CPT/HCPCS: 77063; 77067

== ENCOUNTER 2023-09-06 10:31 | Outpatient (CLI) | payer MEDICARE, BC, SELFPAY ==
--- OUTSIDE RECORDS SUMMARY | 2023-09-06 10:34 | XMS_ITS | Clinical Summary ---
Author Organization [employer] [facility] [employer] Address [place], [place] [address] Care Team Providers Care Tool Checker Name Role Phone Sandi Abdullahi MD Primary Care Provider + Encounters Date Type Department Care Team Description 08/14/2023 1:01 PM CDT - 08/14/2023 11:59 PM CDT Hospital Encounter [facility] [address] [place] [address] Mau Lawrence MD 08/14/2023 Orders Only [facility] [address] [place] [address] Marcos Weber 1 scan: (1-Ord) Holter Report ([id number]) 08/10/2023 11:07 AM CDT - 08/10/2023 11:59 PM CDT Hospital Encounter [facility] [address] [place] [address] Mau Lawrence MD from Last 3 Months [...] UNI SCREEN LEFT Routine 02/25/2019 11:36 AM BELT LINE FEEDER Visit for screening mammogram from Last 3 Months or Most Recently Relevant to Health Maintenance Results * HOLTER MONITOR 48 HOURS (08/14/2023 12:00 AM CDT) Mau Lawrence MD CARDIAC SERVICES ORD * XR MAMMO ANN UNI SCREEN LEFT (02/25/2019 11:36 AM BELT LINE FEEDER) Anatomical Region Laterality Modality BREASTS, Breast Left Left Mammography Impressions 02/25/2019 2:04 PM BELT LINE FEEDER ??There is no radiographic evidence for malignancy. ??Recommend annual mammograms. A lay language report of this examination will be provided to the patient. MAMMOGRAM ASSESSMENT: ??ACR 1 Negative Narrative 02/25/2019 2:04 PM BELT LINE FEEDER XR MAMMO ANN UNI SCREEN LEFT [[id number]] CLINICAL HISTORY: ??This is an asymptomatic 68 y.o. patient. INDICATION FOR EXAM: Mammogram Screening. TECHNIQUE: CC & MLO views were obtained. ??This digital study was evaluated with the assistance of Computer-Aided Detection. Breast Tomosynthesis was used in interpretation. COMPARISON FILM: Yes 02/22/18 [facility] 01/10/17 [facility] FINDINGS: ??Mammographically, the breast tissue is extremely dense. ??This may lower the sensitivity of mammography. ??There are no dominant masses, suspicious micro calcifications or areas of architectural distortion. Sandi Abdullahi MD MAMMO from Last 3 Months or Most Recently Relevant to Health Maintenance Care Teams Tool Checker Relationship Specialty Start Date End Date Sandi Abdullahi MD [address] [place] [address] PCP - General Family Practice 02/08/17
--- NOTE | 2023-09-06 10:45 | CRLHL7_ITS ---
For Patients: As a result of the Century Cures Act, medical imaging exams and procedure reports are released immediately into your electronic medical record. You may view this report before your referring provider. If you have questions, please contact your health care provider. DIGITAL DIAGNOSTIC LEFT MAMMOGRAM USING COMPUTER-AIDED DETECTION INDICATION: Follow-up microcalcifications. Prior history of RIGHT-sided breast cancer. TECHNIQUE: Spot compression magnification view of the LEFT breast in the CC and ML projection. A true ML view of the LEFT breast was obtained. COMPARISON: 09/03/2023. 08/31/2022. FINDINGS: The breast is heterogeneously dense, which may obscure small masses. Persistent cluster of microcalcifications in the deep lateral LEFT breast close to the chest wall are likely within the 3 o`clock position. There are a few additional tiny widely scattered punctate microcalcifications. Stereotactic breast biopsy is recommended. These findings were discussed in detail with the patient. She agrees to this course of action. IMPRESSION: 1. Persistent microcalcifications mid outer LEFT breast 3 o`clock position close to the chest wall. 2. Stereotactic biopsy is recommended. BI-RADS Category 4: Suspicious A lay language report of this examination will be provided to the patient. Dictated by: Wilder Beavers MD @09/06/2023 12:18:45 PM shareej/Dictated by: Wilder Beavers MD @ 09/06/2023 12:18:00 PM (Electronically Signed)
== END 2023-09-06 10:32 | disposition home or self-care (01) ==
LOC: MAMMO 10:33
PROVIDERS: PCP Family Medicine; Visit Provider Family Medicine
DX: R92.8 Other abnormal and inconclusive findings on diagnostic imaging of breast (principal); R92.0 Mammographic microcalcification found on diagnostic imaging of breast; R92.2 Inconclusive mammogram; Z85.3 Personal history of malignant neoplasm of breast
CPT/HCPCS: 77065; G0279

== ENCOUNTER 2023-09-26 08:52 | Outpatient (CLI) | payer MEDICARE, BC, SELFPAY ==
--- OUTSIDE RECORDS SUMMARY | 2023-09-26 08:54 | XMS_ITS | Clinical Summary ---
Author Organization [facility] [email or web address] [facility] s [facility] Address [place], [place] [address] Care Team Providers Care Breaker Engineer Name Role Phone Sandi Abdullahi MD Primary Care Provider + Amber Foy RN Unavailable [phone] Rafael Angel MD Unavailable [phone] Allergies Active Allergy Reactions Criticality Noted Date Comments Adhesive Tape-Silicones Contact Dermatitis 03/2023 Severe blistering Medications Medication Sig Dispensed Refills Start Date End Date Status Post Mastectomy BraIndications:Malig nant neoplasm of left breast in female, estrogen receptor negative, unspecified site of breast (HC) Fit for mastectomy bras and prosthesis, dispense 2 breast prosthesis and 6 mastectomy bras. 1 Packet 3 09/24/2023 Active Active Problems Problem Noted Date Diagnosed Date Malignant neoplasm of left b reast in female, estrogen receptor negative 09/24/2023 Cancer Staging:Clinical stage from 09/24/2023:Stage 0(cTis (DCIS), cN0, cM0, ER-, DC: Not Assessed, HER2: Not Assessed) - Signed by Rafael Angel MD on 09/24/2023 Encounters Date Type Department Care Team Description 09/25/2023 Telephone [facility] [address] [place] [address] Maegan Bright CMA Surgery Scheduled 09/24/2023 11:00 AM CDT Office Visit [facility] [address] [place] [address] Rafael Angel MD Consult 09/24/2023 Travel 09/20/2023 1:30 PM CDT Office Visit [facility] & [address] [address] Maddi Phipps MD 09/20/[address] [place] [address] [place], [facility] Cancer Referral (Ductal carcinoma in situ, left breast ) 09/12/2023 1:15 PM CDT - 09/12/2023 11:59 PM CDT Hospital Encounter [address] [place] [address] Sandi Abdullahi MD Microcalcification of left breast on mammogram 09/12/2023 Travel 08/14/2023 1:01 PM CDT - 08/14/2023 11:59 PM CDT Hospital Encounter [facility] [address] [address] Mau Lawrence MD 08/14/[address] [facility] [address] [place] [address] Marcos Weber 1 scan: (1-Ord) Holter Report ([id number]) 08/10/2023 11:07 AM CDT - 08/10/2023 11:59 PM CDT Hospital Encounter [facility] [address] [place] [address] Mau Lawrence MD from Last 3 Months Family History Medical History Relation Name Comments Stomach cancer Mother Cancer-colon Paternal Grandfather Recurre d age 62. 70. Melanoma Sister Cancer-breast No Family History Cancer-ovarian No Family History Cancer-prostate No Family History Relation Name Status Comments Mother Paternal Grandfather Sister Social History Tobacco Use Types Packs/Day Years Used Date Smoking Tobacco: Never Smokeless Tobacco: Never Tobacco Cessation:Counseling Given: Not Answered Alcohol Use Standard Drinks/Week Comments Never 0 (1 standard drink = 0.6 oz pur e alcohol) Sex and Gender Information Value Date Recorded Sex Assigned at Not on file Gender Identity Not on file Sexual Orientation Not on file Obstetrics History Last Filed Vital Signs Vital Sign Reading Time Taken Comments Blood Pressure 163/72 09/24/2023 10:59 AM CDT Pulse 75 09/24/2023 10:59 AM CDT Temperature - - Respiratory Rate 16 09/24/2023 10:5 9 AM CDT Oxygen Saturation - - Inhaled Oxygen Concentration - - Weight 58.8 kg (129 lb 11.2 oz) 024 10:59 AM CDT Height 175.3 cm (5' 9) 09/24/2023 10:5 9 AM CDT Body Mass Index 19.15 09/24/2023 10:59 AM CDT Plan of Treatment Upcoming Encounters Date Type Department Care Team (Late st Contact Info) Description 09/26/2023 9:00 AM CDT Ancillary Procedure [facility] & [facility] [address] [place] [address] 10/18/2023 9:50 AM CDT Hospital Encounter [address] [place] [address] Rafael Angel MD [address] [facility] [address] [place] [address] 10/18/2023 9:50 AM CDT - 10/18/2023 11:48 AM CDT Surgery [facility] [address] [facility] [place] [address] Rafael Angel MD [address] [place], [place] [id number] left mastectomy with injection of magtrace 10/31/2023 11:00 AM CDT Office Visit [facility] [address] [place] [phone] Jessica Minaya PA [address] [place], [place] [id number] 12/03/2023 11:00 AM CDT Telemedicine [facility] [address] [place] [address] Anh Orantes, MS, [facility] [address] [facility] [address] [place] [address] Scheduled Procedures Name Priority Associated Diagnoses Date/Ti me MASTECTOMY SIMPLE Malignant neoplasm of left breast in female, estrogen receptor negative, unspecified site of breast (HC) 10/18/2023 9:50 AM CDT Health Maintenance Due Date Last Done Comments Tdap 1960 Depression screening for age 12+ 1961 Hepatitis C screening for ag e 18-79 05/27/1967 Tetanus booster 1969 Colonoscopy through age 75 1994 Lipids for age 45-75 1994 Zoster (shingles) series for age 50+ (1 of 2) 05/27/1999 DEXA/DXA scan for age 65+ 2014 Medicare Wellness for age 65+ 2014 Pneumococcal series for age 65+ (1 of 1 - PCV) 2014 Mammogram for age 45-75 02/26/2020 02/26/20 19, 02/22/2018, 02/28/2017, Additional history exists COVID-19 vaccine series (2022-24 season) 2023 12/28/2022, 08/01/2022, 12/20/2021, Additional history exists Influenza for age 65+ 11/25/2023 BMI (ht and wt on same day) for age 18+ 09/23/2024 09/24/2023 Procedures Procedure Name Priority Date/Time Associated Diagnosis Comments XR MAMMO POST CLIP PLCMT LT [facility] 09/12/2023 2:44 PM CDT Microcalcification of left breast on mammogram XR BIOPSY BREAST NEEDLE W JOSHUA W STEREO GUIDE LT [facility] 09/12/2023 2:37 PM CDT Microcalcification of left breast on mammogram PATH TISSUE EXAM Today 09/12/2023 2:05 PM CDT HOLTER MONITOR 48 HOURS Routine 08/14/2023 12:00 AM CDT Syncope XR MAMMO ANN UNI SCREEN LEFT Routine 02/25/2019 11:36 AM HAND FRAME SURGICAL ELASTIC KNITTER Visit for screening mammogram from Last 3 Months or Most Recently Relevant to Health Maintenance Results * XR MAMMO POST CLIP PLCMT LT (09/12/2023 2:44 PM CDT) Anatomical Region Laterality Modality BREASTS N/A Mammography Narrative 09/13/2023 12:23 PM CDT As a result of the Cures Act, medical imaging exams and procedure reports are released immediately into your electronic medical record. ??You may view this report before your referring provider. ??If you have questions, please contact your health care provider. LEFT BREAST POST-BIOPSY MAMMOGRAM CLIP PLACEMENT 09/12/2023 PLEASE SEE [id number] FOR REPORT OF LEFT BREAST STEREOTACTIC BIOPSY REPORT OF SAME DAY. ?? Sandi Abdullahi MD MAMMO * XR BIOPSY BREAST NEEDLE W JOSHUA W STEREO GUIDE LT (09/12/2023 2:37 PM CDT) Anatomical Region Laterality Modality Breast Left Left Mammography, Oth er Addenda Addendum by Dolores Hung NP on 09/19/2023 11:17 AM CDT Pathologic findings: LEFT BREAST, 3:00, 7 CM FROM NIPPLE, STEREOTACTIC-GUIDED CORE BIOPSY: Ductal carcinoma in situ (DCIS) RadPath Correlation: Imaging reviewed by Dr. Maria and Dr. Doshi. ?? Pathologic findings are concordant with radiologic findings. Recommendations: Surgical consultation is recommended. If breast conservation is desired, a second site of calcifications superior to the biopsied area would be recommended. Notification: Pathologic findings and recommendations were discussed with Parris, breast nurse navigator for [facility]. ??She will contact the patient and arrange for surgical consultation. Dolores Hung, MSN, RN, DIVER HELPER [employer]. [email or web address] Impressions 09/18/2023 3:56 PM CDT ??Stereotactic vacuum-assisted breast biopsy. ??When the pathology report is available, an addendum to this report will be made. ACR not applicable Lisa Doshi M.D. Diagnostic/Breast Radiologist [facility] [facility] [email or web address] AMANDO/fide / ?? Narrative 09/18/2023 3:56 PM CDT For Patients: As a result of the Cures Act, medical imaging exams and procedure reports are released immediately into your electronic medical record. ??You may view this report before your referring provider. ?? If you have questions, please contact your health care provider. STEREOTACTIC VACUUM-ASSISTED BREAST BIOPSY AND POST-BIOPSY DIGITAL MAMMOGRAM FOR BIOPSY MARKER PLACEMENT, 09/12/2023 CLINICAL HISTORY: ??LEFT breast microcalcifications. COMPARISON STUDIES: ??09/03/2023. TECHNIQUE: ??The biopsy was performed using a dedicated stereotactic biopsy unit. ??Straight platform consultant and pre- and post-biopsy stereo pair spot digital mammograms were obtained for targeting. ??A vacuum-assisted directional biopsy system was used to obtain core tissue samples with a 9-gauge probe. A digital radiograph of biopsy samples was obtained if calcifications were the targeted lesion. ??Post-biopsy CC and ML digital mammograms were obtained to document position of the biopsy marker. CONSENT and TIME OUT: ??The procedure, risks, and alternatives were explained to the patient and a consent was signed. ??[place] Protocol was followed including pre-procedure verification that relevant information/documentation was available, reviewed and properly matched to the patient; consent accurate and complete; and equipment and supplies available. ??Time Out was conducted just prior to starting procedure to verify the four required elements: patient identity, correct side/site marked (if applicable), procedure, relevant images/results properly labeled and displayed (if applicable). PROCEDURE: ??The patient was positioned for stereotactic biopsy. ??The breast was prepped with Betadine or ChloraPrep. ??3 cc of 1% lidocaine was injected for superficial anesthesia and 8 cc of 1% lidocaine with epinephrine was injected for deeper anesthesia. ??Core tissue samples were obtained. ??A sterile metal biopsy clip was placed percutaneously to joshua the lesion position within the breast. ??The specimens were placed in 10% formalin and sent to the pathology department. ??Pressure was held on the biopsy site until all bleeding subsided. ??The skin incision was closed with Steri-Strips and an ice pack was placed over the biopsy site. Post-biopsy instructions were reviewed with the patient, and a written copy was given to her. ?? LATERALITY: ??LEFT. LESION: ??0.7 cm loosely grouped pleomorphic microcalcifications at 3 o'clock, 7 cm from the nipple. SUSPICION FOR MALIGNANCY: ??Intermediate. NUMBER OF SAMPLES: ??6. SPECIMEN RADIOGRAPH: ??No. BIOPSY CLIP SHAPE: ??Butterfly HydroMARK. PROXIMITY OF CLIP TO TARGET: ??On target. Sandi Abdullahi MD MAMMO * PATH TISSUE EXAM (09/12/2023 2:05 PM CDT) Case Report Pathology Report ?Case: [id number] ? Authorizing Provider: ??Sandi Abdullahi MD ??Collected: ? 09/12/2023 1405 ? [facility]ing Location: ? [facility] ? Received: ?09/12/2023 1410 ? [place] [facility] ? [facility] [place] ? Pathologist: ? Didi Mullins MD ? Specimen: ?Left Breast Core Stereotactic Biopsy, calcifications ? 09/14/2023 9:44 AM T [facility] Amendment 09/14/2023 - Amendmen t issued to incorporate ancillary ER studies. 09/14/2023 9:44 AM T [facility] Final Diagnosis A) LEFT BREAST, 3:00, 7 CM FROM NIPPLE, STEREOTACTIC-GUIDED CORE BIOPSY: 1. Ductal carcinoma in situ (DCIS) ?? a. Subtype: Comedo, cribriform and solid ?? b. Nuclear grade: 3 of 3 ?? c. Calcifications: Are associated with DCIS ?Are present in benign breast tissue ?? d. Necrosis: Is associated with DCIS 2. Negative for invasive carcinoma 3. Atypical lobular hyperplasia (ALH) 4. Breast Ancillary Testing: ?a. Estrogen receptor: Negative (by manual morphometry) 09/14/2023 9:44 AM T [facility] Amendment electronically signed by Poncho Nunez MD on 09/14/2023 at 9:44 AM Comment A) The comedo type o f DCIS diagnosed on a core biopsy has been associated with an increased risk of co-existing invasive carcinoma. This is an image-guided breast biopsy. The pathologic findings should be correlated with radiologic and clinical findings prior to treatment decisions. Case seen in consultation with Dr. Nunez. 09/14/2023 9:44 AM T [facility] Clinical Information CLINICAL HISTORY: ??LEFT breast microcalcifications. LATERALITY: ??LEFT. LESION: ??0.7 cm loosely grouped pleomorphic microcalcifications at 3 o'clock, 7 cm from the nipple. BIOPSY CLIP SHAPE: ??Butterfly HydroMARK. On target. 09/14/2023 9:44 AM CDT [facility] Gross Description A) Label: Patient's name and left Description: Fibrofatty core biopsies Tissue present in wells: A-F Calcifications present in wells: D-F Size: 3.4 x 1.4 x 0.3 cm (aggregate) Ink color: Black The specimen is submitted in toto: 1. Tissue with calcifications 2-3. Remaining tissue Cold ischemic time: Less than 60 minutes, meets current ASCO/CAP guidelines. ?? The specimen was fixed in formalin for a minimum of 6 hours and not longer than 72 hours. EVM 09/12/2023 09/14/2023 9:44 AM CDT [facility] Microscopic Description The final diagnosis is based on microscopic examination of appropriate sections of all specimens. A) The presence of black ink is confirmed on tissue sections. E-cadherin immunostain performed on block A1 shows loss of expression in lobular neoplasia. Additional deeper level sections are examined. The specimen radiograph is reviewed by the pathologist as part of the evaluation of this case, to confirm that the calcifications seen on the specimen radiograph correlate (in size and number) with the microscopic findings, and to determine whether or not additional levels are necessary. 09/14/2023 9:44 AM T [facility] SYNOPTIC REPORTING Breast Biomarker Reporting Template BREAST BIOMARKER REPORTING TEMPLATE - All Specimens Protocol posted: 03/07/2023 ?? Test(s) Performed: ? Estrogen Receptor (ER) Status: ?Negative (less than 1%) ? : ?Internal control cells present and stain as expected ? Test Type: ?Laboratory-develope d test ? Primary Antibody: ?SP1 ? Scoring System: ?Chong ? Proportion Score: ?0 ? Intensity Score: ?0 ? Total Chong Score: ?0 ?? Cold Ischemia and Fixation Times: ?Meet requirements specified in latest version of the ASCO / CAP Guidelines ?? Testing Performed on Block Number(s): ?A1 METHODS ?? Fixative: ?Formalin ?? Image Analysis: ?Not performed ?? Comment(s): ?ER analysis was performed by manual mophometry for the Chong Scoring System 09/14/2023 9:44 AM CDT [facility] Additional Information Interpreted at [facility] - [address] [place], [place] [address] . [facility] [address], [place] [address] Immunohistochemistry controls were reviewed and approved by the pathologist during this examination. 09/14/2023 9:44 AM CDT [facility] Other (Left Breast Core Stereotactic Biopsy) 09/12/2023 2:05 PM CDT 09/12/2023 2:10 PM CDT Sandi Abdullahi MD PATHOLOGY/CYTOLO GY Performing Organization Address City/State/[facility] Co de Phone Number [facility] [address] [place] [address], * HOLTER MONITOR 48 HOURS (08/14/2023 12:00 AM CDT) Mau Lawrence MD CARDIAC SERVICES ORD * XR MAMMO ANN UNI SCREEN LEFT (02/25/2019 11:36 AM HAND FRAME SURGICAL ELASTIC KNITTER) Anatomical Region Laterality Modality BREASTS, Breast Left Left Mammography Impressions 02/25/2019 2:04 PM HAND FRAME SURGICAL ELASTIC KNITTER ??There is no radiographic evidence for malignancy. ??Recommend annual mammograms. A lay language report of this examination will be provided to the patient. MAMMOGRAM ASSESSMENT: ??ACR 1 Negative Narrative 02/25/2019 2:04 PM HAND FRAME SURGICAL ELASTIC KNITTER XR MAMMO ANN UNI SCREEN LEFT [[id number]] CLINICAL HISTORY: ??This is an asymptomatic 68 y.o. patient. INDICATION FOR EXAM: Mammogram Screening. TECHNIQUE: CC & MLO views were obtained. ??This digital study was evaluated with the assistance of Computer-Aided Detection. Breast Tomosynthesis was used in interpretation. COMPARISON FILM: Yes 02/22/18 [facility] 01/10/17 [facility] FINDINGS: ??Mammographically, the breast tissue is extremely dense. ??This may lower the sensitivity of mammography. ??There are no dominant masses, suspicious micro calcifications or areas of architectural distortion. Sandi Abdullahi MD MAMMO from Last 3 Months or Most Recently Relevant to Health Maintenance Care Teams Breaker Engineer Relationship Specialty Start Date End Date Sandi Abdullahi MD [address] [place] [address] PCP - General Family Practice 02/08/17 Amber Foy, RN [address] [address] Nurse Navigator - Oncology Registered Nurse 09/21/23 Rafael Angel MD [address] [address] Surgery - Oncology 09/21/23
== END 2023-09-26 08:53 | disposition home or self-care (01) ==
LOC: RAD 08:53
PROVIDERS: PCP Family Medicine; Visit Provider Internal Medicine
DX: R55 Syncope and collapse (principal); I35.1 Nonrheumatic aortic (valve) insufficiency
CPT/HCPCS: 93306

== ENCOUNTER 2023-10-19 16:51 | Emergency (ER) | payer MEDICARE, BC, SELFPAY ==
[2023-10-19] VITALS (19 sets, daily range): BP systolic 114–142; BP diastolic 58–70; PULSE 70–89; RESP 16–18; TEMP 37.4; O2SAT 87–97
--- NOTE | 2023-10-19 17:41 | CRLHL7_ITS ---
For Patients: As a result of the Century Cures Act, medical imaging exams and procedure reports are released immediately into your electronic medical record. You may view this report before your referring provider. If you have questions, please contact your health care provider. INDICATION: Acute stroke, left leg weakness, altered speech. TECHNIQUE: CTA neck with contrast bolus tracking, 3D angiographic rendering using maximum intensity projection (MIP) and images permanently archived. FINDINGS: There is no significant carotid artery stenosis or dissection. There is no significant vertebral artery stenosis or dissection. The soft tissues of the neck are within normal limits. The cervical spine is in normal alignment. Degenerative changes are noted in the cervical spine. Per preliminary report: Soft tissue gas is present along the left chest wall and axilla, likely from recent breast cancer surgery or intervention. IMPRESSION: No significant carotid or vertebral artery stenosis or dissection. Please note that all CT scans at this facility use dose modulation, iterative reconstruction, and/or weight-based dosing when appropriate to reduce radiation dose to as low as reasonably achievable. Dictated by Faizan Doherty MD @ 10/20/2023 8:19:38 AM (Electronically Signed)
--- NOTE | 2023-10-19 17:41 | CRLHL7_ITS ---
For Patients: As a result of the Century Cures Act, medical imaging exams and procedure reports are released immediately into your electronic medical record. You may view this report before your referring provider. If you have questions, please contact your health care provider. INDICATION: Acute stroke, left leg weakness, altered speech. TECHNIQUE: CTA head with contrast bolus tracking, 3D angiographic rendering using maximum intensity projection (MIP) and images permanently archived. FINDINGS: There is a large right subdural hematoma; see noncontrast head CT report for details. There is minor intracranial atherosclerotic disease. There is otherwise normal opacification of the intracranial vasculature. There is no large vessel occlusion or significant intracranial stenosis. No aneurysm is identified. IMPRESSION: No large vessel occlusion or significant intracranial stenosis. Please note that all CT scans at this facility use dose modulation, iterative reconstruction, and/or weight-based dosing when appropriate to reduce radiation dose to as low as reasonably achievable. Dictated by Faizan Doherty MD @ 10/20/2023 8:16:41 AM (Electronically Signed)
--- NOTE | 2023-10-19 17:42 | CRLHL7_ITS ---
For Patients: As a result of the Century Cures Act, medical imaging exams and procedure reports are released immediately into your electronic medical record. You may view this report before your referring provider. If you have questions, please contact your health care provider. INDICATION: Left leg weakness, altered speech TECHNIQUE: CT Head without i.v. contrast. Coronal and sagittal reformats were obtained. COMPARISON: 08/09/2023 FINDINGS: CSF space: Unremarkable for age. Brain: There is a loculated extra-axial structure overlying the left frontal parietal lobes measuring 2 cm in maximal short axis. The margins are hyperdense and there is layering density posteriorly. Leftward midline shift by 5 mm is noted. Mild diffuse cortical atrophy is noted. Calvarium: The visualized paranasal sinuses are well aerated. The mastoid air cells are clear. The patient is status post prior bilateral cataract removal. The visualized orbits are grossly unremarkable. The calvarium is unremarkable in appearance with no fractures identified. IMPRESSIONS: 1. There is a loculated extra-axial structure overlying the left frontal parietal lobes measuring 2 cm in maximal short axis. The margins are hyperdense and there is layering density posteriorly. This may represent an acute on chronic subdural hematoma or hemorrhage into a previously diagnosed subdural hygroma. Assessment with MRI may be helpful. 2. Leftward midline shift by 5 mm is noted. The findings were discussed with Dr. Owusu at 7:20 PM. Dictated by Beau Carrasco MD @ 10/19/2023 7:20:48 PM Please note that all CT scans at this facility use dose modulation, iterative reconstruction, and/or weight-based dosing when appropriate to reduce radiation dose to as low as reasonably achievable. Dictated by: Beau Carrasco MD @ 10/19/2023 19:27:51 (Electronically Signed)
--- OUTSIDE RECORDS SUMMARY | 2023-10-19 17:54 | XMS_ITS | Clinical Summary ---
Author Organization [employer] [facility] Address [place], [place] [address] Care Team Providers Care Bottom Turning Lathe Turner Name Role Phone Sandi Abdullahi MD Primary Care Provider + Amber Foy RN Unavailable [phone] Rafael Angel MD Unavailable Allergies Active Allergy Reactions Criticality Noted Date Comments Adhesive Tape-Silicones Contact Dermatitis 09/24/2023 Severe blistering Ibuprofen Other - Describe In Comment Field 10/17/2023 Abdominal pain Latex Contact Dermatitis 10/17/2023 Likely reacted to adhesive, but will keep on list for safely Meperidine Nightmares 10/17/2023 Metoprolol Confusion 10/17/2023 Midazolam Mental Status Change 10/17/2023 Cognitive impairment Propoxyphene Confusion,Mental Status Change 10/17/2023 Medications Medication Sig Dispensed Refills Start Date End Date Status Post Mastectomy BraIndications:Ma lignant neoplasm of left breast in female, estrogen receptor negative, unspecified site of breast (HC) Fit for mastectomy bras and prosthesis, dispense 2 breast prosthesis and 6 mastectomy bras. 1 Packet 3 09/24/2023 Active cholecalciferol (Vitamin D) 1,000 unit capsule Take 1,000 units by mouth once daily. Active mecobalamin, vitamin B12, 1,[address] 1,000 mcg under the tongue once daily. Active vit-min eye [id number] mg (PreserVision AREDS) capsule Take 1 Capsule by mouth two times daily. Active oxyCODONE (ROXICODONE) 5 mg immediate release tabletIndications :Malignant neoplasm of left breast in female, estrogen receptor negative (HC) Take 1-2 Tablets (5-10 mg) by mouth every 4 hours if needed for Pain. 10 Tablet 10/18/2023 Active acetaminophen (TYLENOL EXTRA STRGTH) 500 mg tabletIndications :Malignant neoplasm of left breast in female, estrogen receptor negative (HC) Take 2 Tablets (1,000 mg) by mouth every 6 hours if needed for Pain. Max acetaminophen dose: 4000mg in 24 hrs. 10/18/2023 Active prednisoLONE acetate 1% ophthalmic (ECONOPRED PLUS, PRED FORTE, OMNIPRED) suspension Place 1 Drop into right eye four times daily. 06/14/2023 Discontinue d(*Patient states no longer taking) Active Problems Problem Noted Date Diagnosed Date Malignant neoplasm of left b reast in female, estrogen receptor negative 09/24/2023 Cancer Staging:Clinical stage from 09/24/2023:Stage 0(cTis (DCIS), cN0, cM0, ER-, SC: Not Assessed, HER2: Not Assessed) - Signed by Rafael Angel MD on 09/24/2023 Encounters Date Type Department Care Team Description 10/19/[address] [place] [address] Rafael Angel MD Questions 10/18/2023 9:20 AM CDT - 10/18/2023 11:18 AM CDT Surgery [address] [address] Rafael Angel MD Left mastectomy with injection of Magtrace 10/18/2023 9:12 AM CDT Anesthesia Event [address] [address] Torrey Taylor MD Nolan Norman, Megan Maureen, MD 10/18/2023 7:11 AM CDT - 10/18/2023 2:00 PM CDT Hospital Encounter [address] [address] Rafael Angel MD Malignant neoplasm of left breast in female, estrogen receptor negative (HC) (Primary Dx) Discharge Disposition: Home Self Care 10/17/2023 Travel 09/26/2023 9:00 AM CDT Ancillary Procedure [facility] [address] [place] [address] 09/26/2023 Telephone [facility] [address] [place] [address] Maddi Phipps MD Results 09/25/[address] [facility] [address] [place] [address] Maegan Bright, [facility] Surgery Scheduled 09/24/2023 11:00 AM CDT Office Visit [facility] [address] [place] [address] Rafael Angel MD Consult 09/24/2023 Travel 09/20/2023 1:30 PM CDT Office Visit [facility] [address] [place] [address] Maddi Phipps MD 09/20/[address] [facility] [place] [address] [facility] Cancer Referral (Ductal carcinoma in situ, left breast ) 09/12/2023 1:15 PM CDT - 09/12/2023 11:59 PM CDT Hospital Encounter [address] [place] [address] Sandi Abdullahi MD Microcalcification of left breast on mammogram 09/12/2023 Travel 08/14/2023 1:01 PM CDT - 08/14/2023 11:59 PM CDT Hospital Encounter [facility] [address] [place] [address] Mau Lawrence MD 08/14/2023 Orders Only [facility] [address] [place] [address] Marcos Weber 1 scan: (1-Ord) Holter Report ([id number]) 08/10/2023 11:07 AM CDT - 08/10/2023 11:59 PM CDT Hospital Encounter [facility] [address] [place] [address] Mau Lawrence MD from Last 3 Months [...] drink = 0.6 oz pur e alcohol) Social Connections Answer Date Recorded Frequency of Communication with Friends and Fami ly Not on file 10/08/2023 Sex and Gender Information Value Date Recorded Sex Assigned at Not on file Gender Identity Not on file Sexual Orientation Not on file Obstetrics History Last Filed Vital Signs Vital Sign Reading Time Taken Comments Blood Pressure 118/57 10/18/2023 1:34 PM CDT Pulse 79 10/18/2023 1:34 PM CDT Temperature 36.9 ??C (98.4 ??F) 10/18/2023 12:30 PM C DT Respiratory Rate 16 10/18/2023 1:34 PM CDT Oxygen Saturation 95% 10/18/2023 1:34 PM CDT Inhaled Oxygen Concentration - - Weight 56.8 kg (125 lb 3.5 oz) 10/18/2023 7:28 A M CDT Height 176.5 cm (5' 9.5) 10/18/2023 7:28 AM CDT Body Mass Index 18.23 10/18/2023 7:28 AM CDT Plan of Treatment Upcoming Encounters Date Type Department Care Team (Late st Contact Info) Description 10/31/2023 11:00 AM CDT Office Visit [facility] [address] [place] [phone] Jessica Minaya PA [address] [place] [address] 12/03/2023 11:00 AM CDT Telemedicine [facility] [address] [place] [address] Anh Orantes, MS, [facility] [address] [facility] [address] [place], [place] [address] Health Maintenance Due Date Last Done Comments Pneumococcal series for age 65+ (1 of 2 - PCV) 05/27/1955 Tdap 1960 Depression screening for age 12+ 1961 Hepatitis C screening for ag e 18-79 05/27/1967 Zoster (shingles) series for age 50+ (1 of 2) 1968 Tetanus booster 1969 Colonoscopy through age 75 1994 Lipids for age 45-75 1994 DEXA/DXA scan for age 65+ 2014 Medicare Wellness for age 65+ 2014 Mammogram for age 45-75 02/26/2020 02/26/20 19, 02/22/2018, 02/28/2017, Additional history exists COVID-19 vaccine series (2022- season) 2023 12/28/2022, 08/01/2022, 12/20/2021, Additional history exists Influenza for age 65+ 11/25/2023 BMI (ht and wt on same day) for age 18+ 09/23/2024 09/24/2023 Procedures Procedure Name Priority Date/Time Associated Diagnosis Comments SUPRAGLOTTIC-LMA Routine 10/18/2023 9:34 AM CDT MASTECTOMY SIMPLE 10/18/2023 9:02 AM CDT Malignant neoplasm of left breast in female, estrogen receptor negative, unspecified site of breast (HC) Case Notes 90 MINS- SWING- Ok to use Sesar's block Special Needs 5 ft 9 in, 59 kg, BMI 19.22Right arm restrictedAdhesive allergy GLUCOSE METER Timed 10/18/2023 7:26 AM CDT ECHO TTE COMPLETE WO CONTRAST Routine 09/26/2023 9:53 AM CDT Syncope and collapse XR MAMMO POST CLIP PLCMT LT ASHLEY 09/12/2023 2:44 PM CDT Microcalcificati on of left breast on mammogram XR BIOPSY BREAST NEEDLE W JOSHUA W STEREO GUIDE LT [facility] 09/12/2023 2:37 PM CDT Microcalcificati on of left breast on mammogram PATH TISSUE EXAM Today 09/12/2023 2:05 PM CDT HOLTER MONITOR 48 HOURS Routine 08/14/2023 12:00 AM CDT Syncope XR MAMMO ANN UNI SCREEN LEFT Routine 02/25/2019 11:36 AM ORTHOPEDIC SHOE FITTER Visit for screening mammogram from Last 3 Months or Most Recently Relevant to Health Maintenance Results * Supraglottic (10/18/2023 9:34 AM CDT) Narrative Mejia Tilley CRNA Student - 10/18/2023 9:34 AM CDT Mejia Tilley CRNA Student ? 10/18/2023 ??9:35 AM Procedure: Supraglottic Patient location during procedure: OR Supraglottic Airway Properties Mask Ventilation: not attempted Type: unique Tube Size: 4 Insertion Attempts: 2 Placement Verification: CO2 detection Assessment Assessment: atraumatic and dentition unchanged Mejia Tilley CRNA Student ANESTHESIA PX NOTE ORDERABLES * (ABNORMAL) GLUCOSE METER (10/18/2023 7:26 AM CDT) GLUCOSE METER 105(H) 65 - 100 mg/dL 10/18/2023 7:30 AM CDT [facility] Blood BLOOD SPECIMEN / Unknown 10/18/2023 7:26 AM CDT 10/18/2023 7:30 AM CDT Rafael Angel MD CHEMISTRY [facility] SENDOUT [place]NAL [address]IP [id number] [address] [place] [address] * ECHO TTE COMPLETE WO CONTRAST (09/26/2023 9:53 AM CDT) AORTIC VALVE MEAN PG 4 mmHg EJECTION FRACTION 61 % PEAK TR VELOCITY 2.2 m/s LVEDD 3.8 cm Anatomical Region Laterality Modality Ultrasound 09/26/2023 9:04 AM CDT Narrative 09/26/2023 10:26 AM CDT ECHOCARDIOGRAM FREDI JETT ?Accession#: ?? [id number] : ?1950 73 years Study Date: ?? 09/26/2023 9:04:12 AM Gender: F ? BP: ? 130/78 mmHg Height: 175.30 cm ? BSA: ?1.71 m? ? ? Weight: 58.50 kg ?Tech: ? MJJ ?Referring MD: MADDI PHIPPS Site: ? [facility] Reading Location: MOBILE-OP Patient Location: Outpatient. Procedure: 2D, Color Doppler and Spectral Doppler. Indication for study: Syncope and collapse Cardiac Rhythm: Regular.Study quality: Fair. Final Impressions: 1. Normal left ventricular size, normal wall thickness, normal global systolic function, calculated EF of 61 %. 2. Right ventricular cavity size is normal, global systolic RV function is normal. 3. The aortic valve is normal and trileaflet, no stenosis and mild to moderate regurgitation. 4. Normal estimated RA (3 mmHg) and RV systolic (23 mmHg) pressures. 5. No pericardial effusion. Comparison There are no prior studies on this patient for comparison purposes. Chamber Sizes and Function Normal left ventricular size, normal wall thickness, normal global systolic function, calculated EF of 61 %. Left atrial size is normal. Right ventricular cavity size is normal, global systolic RV function is normal. RV wall thickness is normal. The right atrium is normal. Right atrial area is 12 cm? ? ?. The pulmonary artery is of normal size and origin. The sinus of Valsalva is normal sized. The ascending aorta is normal sized. Valves, RV Pressures and Diastolic Function The aortic valve is normal in structure and trileaflet, no stenosis and mild to moderate regurgitation. The mitral valve is normal in structure, trace mitral regurgitation. Spectral Doppler shows Grade 1 pattern of LV diastolic filling. The tricuspid valve is normal in structure. Tricuspid regurgitation is trace regurgitation. The tricuspid regurgitant velocity is 2.2 m/s, the estimated right ventricular systolic pressure is 20 mmHg plus right atrial pressure. The pulmonic valve is normal. No pulmonary regurgitation. Masses, Effusion, Shunts There is no pericardial effusion. The inferior vena cava is normal sized, respiratory size variation greater than 50%. No left to right shunting was detected by limited color flow Doppler interrogation of the interatrial septum. MEASUREMENTS AND CALCULATIONS 2-D Measurements and LV Function: LVID (d) 3.8 cm Planimetered EF 61 % LVID (s) 2.8 cm LV FS% (2D) ? 25 % IVS (d) ??1.0 cm LVOT diameter ?? 1.8 cm LVPW (d) 1.0 cm HR ?72 bpm Ao Sinus 3.4 cm LA Vol index ?23 ml/m2 Asc Ao ?? 2.3 cm RA area ? 12 cm? ? ? LA ? 3.3 cm Diastology: Mitral ?Tissue Doppler ?Pulmonary veins E Peak 0.7 m/s ??e', Septum ? 0.07 m/s Pulm s ?52.7 cm/s A Peak 0.7 m/s ??e', Lateral ?0.08 m/s Pulm d ?46.6 cm/s E/A ?1.0 ?E/e' Average ?? 9.52 ? Pulm s/d ratio ??1.13 DT ? 243 msec Aortic Valve: Vmax ? 1.4 m/s ??EDUARD (V) ?? 1.63 cm? AI P 1/2 530 msec VTI ?0.28 m ?? EDUARD (I) ?? 1.63 cm? AI Vol ?? 19 ml LVOT V max 0.9 m/s ??Max PG ?8 mmHg LVOT VTI ?? 0.17 m ?? Mean PG ?? 4 mmHg SV ? 45 ml ?Dim Index 0.61 SV index ?? 26 ml/m? ? ? CO ?3.3 l/min ?CI ?1.9 l/min/m? ? ? Mitral Valve: MVA ? 3.1 cm? ? ? MV P 1/2 ??70 msec MV Mean G 1 mmHg MV VTI ?0.23 m Tricuspid Valve and estimated PA pressures: TR Vmax 2.2 m/s TAPSE 1.7 cm TR maxG 20 mmHg . This study was interpreted by an [facility] accredited facility. CC: [facility] ([facility]) [facility]. ??Final ?? Procedure Note Bryson Hart MD - 09/26/2023 ECHOCARDIOGRAM FREDI JETT : 1950 73 years Study Date: 09/26/2023 9:04:12 AM Gender: F BP: 130/78 mmHg Height: 175.30 cm BSA: 1.71 m? ? ? Weight: 58.50 kg Tech: SAL Referring MD: AMDDI PHIPPS Site: [facility] Reading Location: MOBILE-OP Patient Location: Outpatient. Procedure: 2D, Color Doppler and Spectral Doppler. Indication for study: Syncope and collapse Cardiac Rhythm: Regular.Study quality: Fair. Final Impressions: 1. Normal left ventricular size, normal wall thickness, normal globalsystolic function, calculated EF of 61 %. 2. Right ventricular cavity size is normal, global systolic RV functionis normal. 3. The aortic valve is normal and trileaflet, no stenosis and mild tomoderate regurgitation. 4. Normal estimated RA (3 mmHg) and RV systolic (23 mmHg) pressures. 5. No pericardial effusion. Comparison There are no prior studies on this patient for comparison purposes. Chamber Sizes and Function Normal left ventricular size, normal wall thickness, normal globalsystolic function, calculated EF of 61 %. Left atrial size is normal.Right ventricular cavity size is normal, global systolic RV function isnormal. RV wall thickness is normal. The right atrium is normal. Rightatrial area is 12 cm? ? ?. The pulmonary artery is of normal size and origin.The sinus of Valsalva is normal sized. The ascending aorta is normalsized. Valves, RV Pressures and Diastolic Function The aortic valve is normal in structure and trileaflet, no stenosis andmild to moderate regurgitation. The mitral valve is normal in structure,trace mitral regurgitation. Spectral Doppler shows Grade 1 pattern of LVdiastolic filling. The tricuspid valve is normal in structure. Tricuspidregurgitation is trace regurgitation. The tricuspid regurgitant velocityis 2.2 m/s, the estimated right ventricular systolic pressure is 20 mmHgplus right atrial pressure. The pulmonic valve is normal. No pulmonaryregurgitation. Masses, Effusion, Shunts There is no pericardial effusion. The inferior vena cava is normal sized,respiratory size variation greater than 50%. No left to right shunting wasdetected by limited color flow Doppler interrogation of the interatrialseptum. MEASUREMENTS AND CALCULATIONS 2-D Measurements and LV Function: LVID (d) 3.8 cm Planimetered EF 61 % LVID (s) 2.8 cm LV FS% (2D) 25 % IVS (d) 1.0 cm LVOT diameter 1.8 cm LVPW (d) 1.0 cm HR 72 bpm Ao Sinus 3.4 cm LA Vol index 23 ml/m2 Asc Ao 2.3 cm RA area 12 cm? ? ? LA 3.3 cm Diastology: Mitral Tissue Doppler Pulmonary veins E Peak 0.7 m/s e', Septum 0.07 m/s Pulm s 52.7 cm/s A Peak 0.7 m/s e', Lateral 0.08 m/s Pulm d 46.6 cm/s E/A 1.0 E/e' Average 9.52 Pulm s/d ratio 1.13 DT 243 msec Aortic Valve: Vmax 1.4 m/s EDUARD (V) 1.63 cm? ? ? AI P 1/2 530 msec VTI 0.28 m EDUARD (I) 1.63 cm? ? ? AI Vol 19 ml LVOT V max 0.9 m/s Max PG 8 mmHg LVOT VTI 0.17 m Mean PG 4 mmHg SV 45 ml Dim Index 0.61 SV index 26 ml/m? ? ? CO 3.3 l/min CI 1.9 l/min/m? ? ? Mitral Valve: MVA 3.1 cm? ? ? MV P 1/2 70 msec MV Mean G 1 mmHg MV VTI 0.23 m Tricuspid Valve and estimated PA pressures: TR Vmax 2.2 m/s TAPSE 1.7 cm TR maxG 20 mmHg . This study was interpreted by an [facility] accredited facility. CC: [facility] (med records) [facility]. Final Maddi Phipps MD ECHO ORD * XR MAMMO POST CLIP PLCMT LT (09/12/2023 2:44 PM CDT) Anatomical Region Laterality Modality BREASTS N/A Mammography Narrative 09/13/2023 12:23 PM CDT As a result of the Century Cures Act, medical imaging exams and procedure reports are released immediately into your electronic medical record. ??You may view this report before your referring provider. ??If you have questions, please contact your health care provider. LEFT BREAST POST-BIOPSY MAMMOGRAM CLIP PLACEMENT 09/12/2023 PLEASE SEE [id number] FOR REPORT OF LEFT BREAST STEREOTACTIC BIOPSY [...] Pathologic findings and recommendations were discussed with Parris breast nurse navigator for [facility]. ??She will contact the patient and arrange for surgical consultation. Dolores Hung, MSN, RN, BATTERY CHARGER TESTER [employer]. [email or web address] Impressions 09/18/2023 3:56 PM CDT ??Stereotactic vacuum-assisted breast biopsy. ??When the pathology report is available, an addendum to this report will be made. ACR not applicable Lisa Doshi M.D. Diagnostic/Breast Radiologist [employer]. [email or web address] AMANDO/fide / ?? Narrative 09/18/2023 3:56 PM CDT For Patients: As a result of the Century Cures Act, medical imaging exams and procedure [...] using a dedicated stereotactic biopsy unit. ??Straight general merchandise manager and pre- and post-biopsy stereo pair spot [...] the patient and a consent was signed. ??[place] Protocol was followed including pre-procedure verification that [...] PM CDT) Case Report Pathology Report ?Case: [id number] ? Authorizing Provider: ??Sandi Abdullahi MD ??Collected: ? 09/12/2023 1405 ? Ordering Location: ? [facility] ? Received: ?09/12/2023 1410 ? [facility] ? [facility] [place] ? Pathologist: ? Didi Mullins MD ? Specimen: ?Left Breast Core Stereotactic Biopsy, calcifications ? 09/14/2023 9:44 AM CDT [facility] Amendment 09/14/2023 - Amendmen t issued to incorporate ancillary ER studies. 09/14/2023 9:44 AM CDT [facility] Final Diagnosis A) LEFT BREAST, 3:00, [...] Negative (by manual morphometry) 09/14/2023 9:44 AM [facility] Amendment electronically signed by Poncho Nunez [...] consultation with Dr. Nunez. 09/14/2023 9:44 AM [facility] Clinical Information CLINICAL HISTORY: ??LEFT breast microcalcifications. LATERALITY: ??LEFT. LESION: ??0.7 cm loosely grouped pleomorphic microcalcifications at 3 o'clock, 7 cm from the nipple. BIOPSY CLIP SHAPE: ??Butterfly [employer]. On target. 09/14/2023 9:44 AM [facility] Gross Description A) Label: [...] 72 hours. EVM 09/12/2023 09/14/2023 9:44 AM [facility] Microscopic Description The final [...] additional levels are necessary. 09/14/2023 9:44 AM CDT [facility] SYNOPTIC REPORTING Breast Biomarker Reporting Template [...] Chong Scoring System 09/14/2023 9:44 AM CDT [facility] Additional Information Interpreted at [facility] Central Laboratory - [address] [place] [id number] Immunohistochemistry controls were reviewed and approved by the pathologist during this examination. 09/14/2023 9:44 AM CDT [facility] Other (Left Breast Core Stereotactic Biopsy) 09/12/2023 2:05 PM CDT 09/12/2023 2:10 PM CDT Sandi Abdullahi MD PATHOLOGY/CYTOLO GY [facility] [address] [place] [address], * HOLTER MONITOR 48 HOURS (08/14/2023 12:00 AM CDT) Mau Lawrence MD CARDIAC SERVICES ORD * XR MAMMO ANN UNI SCREEN LEFT (02/25/2019 11:36 AM ORTHOPEDIC SHOE FITTER) Anatomical Region Laterality Modality BREASTS, Breast Left Left Mammography Impressions 02/25/2019 2:04 PM ORTHOPEDIC SHOE FITTER ??There is no radiographic evidence for malignancy. ??Recommend annual mammograms. A lay language report of this examination will be provided to the patient. MAMMOGRAM ASSESSMENT: ??ACR 1 Negative Narrative 02/25/2019 2:04 PM ORTHOPEDIC SHOE FITTER XR MAMMO ANN UNI SCREEN LEFT [[id number]] CLINICAL HISTORY: ??This is an asymptomatic 68 y.o. patient. INDICATION FOR EXAM: Mammogram Screening. TECHNIQUE: CC & MLO views were obtained. ??This digital study was evaluated with the assistance of Computer-Aided Detection. Breast Tomosynthesis was used in interpretation. COMPARISON FILM: Yes 02/22/18 [facility] BREAST [place] 01/10/17 [facility] FINDINGS: ??Mammographically, the breast tissue is extremely dense. ??This may lower the sensitivity of mammography. ??There are no dominant masses, suspicious micro calcifications or areas of architectural distortion. Sandi Abdullahi MD MAMMO from Last 3 Months or Most Recently Relevant to Health Maintenance Advance Directives * Full Code (Latest Code Status on File) Date Activated Date Inactivated Comments 10/18/2023 7:18 AM 10/18/2023 4:12 PM Question Answer Comments Code Status Discussion: Discussed Care Teams Bottom Turning Lathe Turner Relationship Specialty Start Date End Date Sandi Abdullahi MD [address] [place] [address] PCP - General Family Practice 02/08/17 Amber Foy, RN [address] [facility] [address] [place] [address] Nurse Navigator - Oncology Registered Nurse 09/21/23 Rafael Angel MD [address] [facility] [address] [place] [address] Surgery - Oncology 09/21/23
[2023-10-19 18:03] LABS: Basophils Absolute Auto 0.06 K/uL (0.00-0.30); Basophils Percent Auto 0.8 % (0.0-3.0); Eosinophils Absolute Auto 0.14 K/uL (0.00-0.50); Hemoglobin* 13.3 gm/dL (12.0-16.0); Immature Granulocytes Abs Auto 0.01 K/uL (0.00-0.30); Immature Granulocytes Pct Auto 0.1 %; Lymphocytes Absolute Auto 1.58 K/uL (0.90-2.90); Lymphocytes Percent Auto 22.1 % (20-44); Mean Corpuscular HGB Conc 32 gm/dL (32-36); Mean Corpuscular Hemoglobin 28 pg (26-34); Mean Corpuscular Volume 88 fL (80-100); Monocytes Percent Auto 7.8 % (0.0-11.0); Neutrophils Percent Auto 67.2 % (42.0-72.0); Platelet Count* 182 K/uL (140-440); Red Blood Count 4.79 m/uL (4.00-5.20); White Blood Count* 7.15 K/uL (4.50-11.00)
[2023-10-19 18:21] LABS: Chloride* 101 mmol/L (96-114); Potassium* 3.6 mmol/L (3.6-5.1); Slide Review Reflex No; Sodium* 137 mmol/L (135-149)
[2023-10-19 18:23] LABS: Creatinine* 0.6 mg/dL (0.5-1.5); Estimated Glomerular Filt Rate 94 ml/min
[2023-10-19 18:24] LABS: Anion Gap 7 mEq/L (7-15); Blood Urea Nitrogen* 11 mg/dL (7-30); Calcium* 8.8 mg/dL (8.4-10.6); Carbon Dioxide* 29 mmol/L (20-32); Glucose* 101 mg/dL (60-115)
--- NOTE | 2023-10-19 19:49 | ED.GENADULT ---
HPI - General Adult General Chief complaint: Unspecified Complaint, Adult Stated complaint: Red drain post mastectomy, slowed speech Time Seen by Provider: 10/19/23 16:55 History of Present Illness HPI narrative: This patient is a 73-year-old female who comes in reporting some difficulty with finding words and reports slower speech. She had a mastectomy yesterday and has a drain in place. Her friend or family member with her today was concerned about the reddish color in the drainage. 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 In my initial visit I did note an obvious left leg weakness on exam and initiated a stroke code and discussion with this patient with the neurologist on-call. Related Data Home Medications ?Medication ?Instructions ?Recorded ?Confirmed cholecalciferol (vitamin D3) 25 25 mcg PO QDAY 07/27/23 09/28/23 mcg (1,000 unit) capsule mecobalamin (vitamin B12) 1,000 1,000 mcg PO QDAY 07/27/23 09/28/23 mcg lozenges vitamins A,C,O-qkax-cgiskq 4,296 1 cap PO BID 07/27/23 09/28/23 mcg-226 mg-90 mg capsule (PreserVision AREDS) Allergies Allergy/AdvReac Type Severity Reaction Status Date / Time adhesive Allergy Severe Blister Verified 09/28/23 14:54 meperidine Allergy Severe Nightmare Verified 09/28/23 14:54 metoprolol Allergy Severe Confusion Verified 09/28/23 14:54 midazolam Allergy Severe cognitive Verified 09/28/23 14:54 impairment propoxyphene Allergy Severe Confusion Verified 09/28/23 14:54 ibuprofen Allergy Unknown Abdominal Verified 09/28/23 14:54 Pain latex Allergy Unknown Verified 09/28/23 14:54 Review of Systems Status of ROS: Reports: 10 or more systems reviewed and unremarkable except as noted in History and below Narrative: Constitutional: No fevers, no weight gain or loss. Eyes: No discharge. No vision changes. HENT: No congestion, no sore throat, no ear pain. Cardiovascular: No chest pain, no palpitations. Respiratory: No shortness of breath, no wheezes, no cough. Gastrointestinal: No abdominal pain, no vomiting, no diarrhea. Genitourinary: No dysuria, no hematuria. Musculoskeletal: She reports some difficulty ambulating in here because she was off balance. Skin: No rashes, no pruritis. Neurological: No dizziness. She reports some speech change where it is harder for her to find words and her speech is slower than normal. She reports some difficulty ambulating in here. Endo/Heme/Allergies: No bruising or bleeding. No polydipsia. Pysch: no suicidality, no anxiety, no insomnia. All other systems reviewed and are negative. [facility] Medical History (Updated 10/19/23 @ 20:00 by Gianfranco Dempsey MD) Allergy to adhesive tape ?Z91.048 - Other nonmedicinal substance allergy status (ICD-10) Vegetarian diet ?Z78.9 - Other specified health status (ICD-10) Vitamin D deficiency ?E55.9 - Vitamin D deficiency, unspecified (ICD-10) Concussion ?S06.0XAA - Concussion with loss of consciousness status unknown, initial encounter (ICD-10) Closed head injury ?S09.90XA - Unspecified injury of head, initial encounter (ICD-10) Tubular adenoma (2017) ?D36.9 - Benign neoplasm, unspecified site (ICD-10) Polyp of colon (11/2014) ?K63.5 - Polyp of colon (ICD-10) Migraine headache ?G43.909 - Migraine, unspecified, not intractable, without status migrainosus (ICD-10) Malignant neoplasm of right breast (2003) ?C50.911 - Malignant neoplasm of unspecified site of right female breast (ICD-10) Macular degeneration ?H35.30 - Unspecified macular degeneration (ICD-10) Low vitamin B12 level ?E53.8 - Deficiency of other specified B group vitamins (ICD-10) Herpes zoster ?B02.9 - Zoster without complications (ICD-10) Chest pain (11/2020) ?R07.9 - Chest pain, unspecified (ICD-10) Abdominal discomfort ?R10.9 - Unspecified abdominal pain (ICD-10) Thyroid nodule ?E04.1 - Nontoxic single thyroid nodule (ICD-10) Surgical History (Updated 10/19/23 @ 20:00 by Gianfranco Dempsey MD) History of right mastectomy (10/2003) ?Z90.11 - Acquired absence of right breast and nipple (ICD-10) History of hysterectomy with oophorectomy (08/2003) History of esophagogastroduodenoscopy (EGD) (2014) ?Z98.890 - Other specified postprocedural states (ICD-10) History of colonoscopy ?Z98.890 - Other specified postprocedural states (ICD-10) History of bilateral inguinal hernia repair (1999) ?Z98.890 - Other specified postprocedural states (ICD-10) ?Z87.19 - Personal history of other diseases of the digestive system (ICD-10) Family History (Updated 09/28/23 @ 07:36 by Sandi Abdullahi MD) Maternal Grandfather Diabetes Maternal Grandmother Diabetes Mother Gastric cancer Father Stroke Paternal Grandfather Rectal cancer Social History (Updated 09/28/23 @ 15:25 by Sandi Abdullahi MD) Narrative: 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 She lives alone in [place]. She has a sister in [place] and [place] and a niece in [place] originally from [place] Non smoker Does not drink alcohol vegetarian diet active lifestyle, , renovates house, gardening . Has Cat Sister, Mason, from [place] is healthcare power of aircraft general repair mechanic. Code status is DNR What is your current living situation?: I presently have a place to live Problems where you live: no known problems Problems where you live details: n/a In the past 12 months, utilities in danger of being shut off: no In past 12 months, lack of transportation kept you from medical appts, meetings, work, or getting things needed for daily living: no In the past 12 mos, have been you worried that your food would run out before you had money to buy more?: never true In the past 12 mos, the food you bought just didn't last and you didn't have money to buy more?: never true Smoking Status: Never smoker Do you use any of these nicotine containing products: None Second hand tobacco smoke exposure: No How often do you have a drink containing alcohol: never How often do you have six or more drinks on one occasion: Never AUDIT-C Alcohol total score: 0 Non-prescribed substance use: denies use Caffeine: No How often does anyone, including family, friends and others, physically hurt you: never How often does anyone, including family, friends and others, insult or talk down to you: never How often does anyone, including family, friends and others, threaten you with harm: never How often does anyone, including family, friends and others, scream or curse at you: never service: No Exam Narrative: Exam Narrative: Constitutional: Well-developed, well-nourished, no acute distress. HEENT: Normocephalic, atraumatic. Neck: Normal range of motion. Nontender. Supple. Heart: Regular. No murmurs. Normal rate. Intact distal pulses. Lungs: Clear to auscultation. No chest discomfort. No wheezes, rhonchi, or rales. Abdomen: Normal bowel sounds. Nontender. No rebound tenderness. Genitalia: Deferred. Back: No midline tenderness. Normal range of motion. Extremities: Normal range of motion. No injury. Skin: Intact. No rash. Warm. No erythema or pallor. Neurologic: No altered sensation. No weakness. Alert and oriented. Speech is understandable easily but seems slower than normal and at time she has difficulty finding words. No facial asymmetry. Tongue is midline. [id number] is normal. No pronator drift. [employer] strength is equal bilaterally. She is unable to raise her left leg off the bed due to weakness. She does not report any altered sensation. Psychiatric: No suicidality. No anxiety or depression. No insomnia. Nursing notes and vitals signs are reviewed. Const: Vital Signs, click to edit/add: Vital Signs - 24 hr 10/19/23 16:57 Temperature 99.4 F Pulse Rate [Right Pulse Oximeter] 89 Respiratory Rate 18 Blood Pressure [Ri ght Upper Arm] 122/69 Pulse Oximetry 94 Oxygen Delivery Me thod Room Air Course Vital Signs Vital signs: Initial Vital Signs Temperature 99.4 F 10/19/23 16:57 Temperature Source Temporal Artery Scan 10/19/23 16:57 Pulse Rate 89 10/19/23 16:57 Pulse Rhythm Regular 10/19/23 16:57 Pulse Strength 3+ Normal 10/19/23 16:57 Respiratory Rate 18 10/19/23 16:57 Blood Pressure 122/69 10/19/23 16:57 Blood Pressure Mean 86 10/19/23 16:57 Blood Pressure Position Sitting 10/19/23 16:57 Pulse Oximetry 94 10/19/23 16:57 Oxygen Delivery Method Room Air 10/19/23 16:57 Vital Signs Temperature 99.4 F 10/19/23 16:57 Pulse Rate 89 10/19/23 16:57 Respiratory Rate 18 10/19/23 16:57 Blood Pressure 122/69 10/19/23 16:57 Pulse Oximetry 94 10/19/23 16:57 Oxygen Delivery Method Room Air 10/19/23 16:57 Temperature 99.4 F 10/19/23 16:57 Pulse Rate 89 10/19/23 16:57 Respiratory Rate 18 10/19/23 16:57 Blood Pressure 122/69 10/19/23 16:57 Pulse Oximetry 94 10/19/23 16:57 Oxygen Delivery Method Room Air 10/19/23 16:57 Medical Decision Making MDM Narrative Medical decision making narrative: After examining this patient and seeing neurologic deficit IA initiated a stroke code and made contact with neurologist on-call, Dr. Irina Lentz who did use the tele stroke unit to also interview and examine the patient. This was done after she went to CT scan for CT of the head and CT angio head and neck. She does have a pre-existing hygroma that was easily observed with initial images coming up. I did not have comparison views but Dr. Lentz did note that this is larger than previous and the patient is now having symptoms. This patient's symptoms started about 4 hours prior to arrival but even so with her recent surgery would not be a good candidate for thrombolytics. Additionally this is not certainly a hematoma however the radiologist suggests that as a possibility. With repeat exam and neurologic test the patient's symptoms are not progressing. She does not report a headache. Dr. Lentz recommended transfer for further management at an a line of facility. She is accepted for transfer at [facility]. Dr. Jeronimo is the accepting physician there are however it may be up to 8 hours before bed becomes available. Lab Data Labs: Lab Results 10/19/23 Range/Units 17:50 WBC 7.15 (4.50-11.00) K/uL RBC 4.79 (4.00-5.20) m/uL Hgb 13.3 (12.0-16.0) gm/dL Hct 42.0 (33.0-51.0) % MCV 88 (80-100) fL MCH 28 (26-34) pg MCHC 32 (32-36) gm/dL RDW Coeff of Amando 12.0 (11.5-15.5) % Plt Count 182 (140-440) K/uL Neut % (Auto) 67.2 (42.0-72.0) % Lymph % (Auto) 22.1 (20-44) % [place] % (Auto) 7.8 (0.0-11.0) % Eos % (Auto) 2.0 (0.0-7.0) % Baso % (Auto) 0.8 (0.0-3.0) % Neut # (Auto) 4.80 (1.7-7.0) K/uL Lymph # (Auto) 1.58 (0.90-2.90) K/uL [place] # (Auto) 0.60 (0.00-0.90) K/UL Eos # (Auto) 0.14 (0.00-0.50) K/uL Baso # (Auto) 0.06 (0.00-0.30) K/uL Abs Immat Gran (auto) 0.01 (0.00-0.30) K/uL Imm/Tot Granulo (auto) 0.1 % Sodium 137 (135-149) mmol/L Potassium 3.6 (3.6-5.1) mmol/L Chloride 101 (96-114) mmol/L Carbon Dioxide 29 (20-32) mmol/L Anion Gap 7 (7-15) mEq/L BUN 11 (7-30) mg/dL Creatinine 0.6 (0.5-1.5) mg/dL Estimated GFR 94 ml/min Glucose 101 (60-115) mg/dL Calcium 8.8 (8.4-10.6) mg/dL Discharge Plan Discharge Clinical Impression: Subdural hygroma, S/P mastectomy Patient Disposition: Xfer Other Condition: Unchanged Prescriptions: No Action PreserVision AREDS 4,296 mcg-226 mg-90 mg capsule 1 cap PO BID cholecalciferol (vitamin D3) 25 mcg (1,000 unit) capsule 25 mcg PO QDAY mecobalamin (vitamin B12) 1,000 mcg lozenge 1,000 mcg PO QDAY Rx Instructions: allow to dissolve in mouth OR may chew lightly before swallowing Follow Up/Referrals: Sandi Abdullahi MD [Primary Care Provider] - Stand Alone Forms: [employer] Info Instructions
[2023-10-19] MEDS: ACETAMINOPHEN 500 MG TABLET 1000 MG PO (20:38)
--- NOTE | 2023-10-19 23:11 | ED.NURSE ---
Pt departs ER now to [facility], report given to Fiordaliza at [facility] and narrative writer did call and update Pt sister as requested.
== END 2023-10-19 23:13 | disposition other institution (70) ==
PROVIDERS: Emergency Provider Emergency Medicine Emergency Medical Services; PCP Family Medicine
DX: I62.00 Nontraumatic subdural hemorrhage, unspecified (principal)
CPT/HCPCS: 36415; 70450; 70496; 70498; 80048; 85025; 93005; 99284; 99285; 99291; G0427; A9270; Q9967

== ENCOUNTER 2023-10-19 23:06 | Outpatient (CLI) | payer MEDICARE, BC, SELFPAY ==
--- OUTSIDE RECORDS SUMMARY | 2023-10-23 19:31 | XMS_ITS | Clinical Summary ---
Author Organization [facility] Address [place], [place] [address] Care Team Providers Care Aluminum Pourer Name Role Phone Sandi Abdullahi MD Primary Care Provider + Amber Foy RN Unavailable [phone] Rafael Angel MD Unavailable [phone] Allergies Active Allergy Reactions Criticality Noted Date [...] Start Date End Date Status Post Mastectomy BraIndications:M alignant neoplasm of left breast in female, estrogen receptor negative, unspecified site of breast (HC) Fit for mastectomy bras and prosthesis, dispense 2 breast prosthesis and 6 mastectomy bras. 1 Packet 3 09/24/2023 Suspended Additional Information prednisoLONE acetate 1% ophthalmic (ECONOPRED PLUS, PRED FORTE, OMNIPRED) suspension Place 1 Drop into right eye four times daily. 06/14/2023 10/17/19 24 Discontinued( *Patient states no longer taking) cholecalciferol (Vitamin D) 1,000 unit capsule Take 1,000 units by mouth once daily. Suspended mecobalamin, vitamin B12, 1,[address] 1,000 mcg under the tongue once daily. Suspended vit-min eye [id number] 0mg (PreserVision AREDS) capsule Take 1 Capsule by mouth two times daily. Suspended oxyCODONE (ROXICODONE) 5 mg immediate release tabletIndication s:Malignant neoplasm of left breast in female, estrogen receptor negative (HC) Take 1-2 Tablets (5-10 mg) by mouth every 4 hours if needed for Pain. 10 Tablet 10/18/2023 10/20/19 Discontinued( *Patient states no longer taking) acetaminophen (TYLENOL EXTRA STRGTH) 500 mg tabletIndication s:Malignant neoplasm of left breast in female, estrogen receptor negative (HC) Take 2 Tablets (1,000 mg) by mouth every 6 hours if needed for Pain. Max acetaminophen dose: 4000mg in 24 hrs. 10/18/2023 Suspended Additional Information levETIRAcetam (KEPPRA) 500 mg tabletIndication s:Midline shift of brain,Left hemiparesis (HC),Malignant neoplasm of left breast in female, estrogen receptor negative, unspecified site of breast (HC) Take 1 Tablet (500 mg) by mouth two times daily. 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 Malignant neoplasm of left b reast in female, estrogen receptor negative 09/24/2023 Cancer Staging:Clinical stage from 09/24/2023:Stage 0(cTis (DCIS), cN0, cM0, ER-, IA: Not Assessed, HER2: Not Assessed) - Signed by Rafael Angel MD on 09/24/2023 Encounters Date Type Department Care Team Description 10/22/2023 1:42 PM CDT Anesthesia Event [facility] [address] [place] [address] Aj Erwin MD Nies, Danielle C, 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 10/22/2023 11:12 AM CDT - 10/22/2023 2:24 PM CDT Surgery [facility] [address] [place] [address] Sourav Alegre MD RIGHT SIDED CRANIOTOMY FOR SUBDURAL HEMATOMA EVACUATION 10/21/2023 9:54 PM CDT - Present Hospital Encounter [facility] [address] [place] [address] [facility] [place], MD Drake Arias, MD Altaf Wing, Wilder Millan, DO Holt, Toña Galvez MD 10/20/2023 12:06 AM CDT - 10/21/2023 9:23 PM CDT Hospital Encounter [address] [address] [facility], Hospitalist [facility], MD Jake Perez, Marlys Quispe MD Midline shift of brain (Primary Dx); Malignant neoplasm of left breast in female, estrogen receptor negative (HC); Left hemiparesis (HC); Malignant neoplasm of left breast in female, estrogen receptor negative, unspecified site of breast (HC) Discharge Disposition: Hospice Medical Facility 10/20/2023 Travel 10/19/2023 Office Visit [facility] [address] [facility] [address] [place] [phone] Narcisa Owusu MD Telehealth ([facility]) 10/19/2023 Telephone [facility] [address] [place] [phone] Rafael Angel MD Questions 10/18/2023 9:20 AM CDT - 10/18/2023 11:18 AM CDT Surgery [address] [address] Rafael Angel MD Left mastectomy with injection of Magtrace 10/18/2023 9:12 AM CDT Anesthesia Event [address] [address] Torrey Taylor MD Nolan Norman, Gabrielle Hale MD 10/18/2023 7:11 AM CDT - 10/18/2023 2:00 PM CDT Hospital Encounter [address] [place] [address] Rafael Angel MD Malignant neoplasm of left breast in female, estrogen receptor negative (HC) (Primary Dx) Discharge Disposition: Home Self Care 10/17/2023 Travel 09/26/2023 9:00 AM CDT Ancillary Procedure [facility] [address] [place] [address] 09/26/2023 Telephone [facility] [address] [facility] [address] [place] [address] Maddi Phipps MD Results 09/25/2023 Telephone [facility] [address] [place] [address] Maegan Bright, [facility] Surgery Scheduled 09/24/2023 11:00 AM CDT Office Visit [facility] [address] [facility] [address] [place] [address] Rafael Angel MD Consult 09/24/2023 Travel 09/20/2023 1:30 PM CDT Office Visit [facility] [address] [place] [address] Maddi Phipps MD 09/20/[address] [place] [address] [facility] Cancer Referral (Ductal carcinoma in situ, left breast ) 09/12/2023 1:15 PM CDT - 09/12/2023 11:59 PM CDT Hospital Encounter [address] [place] [address] Sandi Abdullahi MD Microcalcification of left breast on mammogram 09/12/2023 Travel 08/14/2023 1:01 PM CDT - 08/14/2023 11:59 PM CDT Hospital Encounter [facility] [address] [place] [address] Mau Lawrence MD 08/14/2023 Orders Only [facility] [address] [place] [address] Marcos Weber 1 scan: (1-Ord) Holter Report ([id number]) 08/10/2023 11:07 AM CDT - 08/10/2023 11:59 PM CDT Hospital Encounter [facility] [address] [place] [address] Mau Lawrence MD from Last 3 Months [...] of Communication with Friends and Fami ly 0 10/20/2023 Financial Resource Strain Answer Date R ecorded Difficulty of Paying Living Expenses 3 10/20/2023 Difficulty of Paying Living Expenses Not on file 10/20/2023 Food Insecurity Answer Date Recorded Worried About Running Out of Food in the Last Ye ar 1 10/20/2023 Transportation Needs Answer Date Record ed Lack of Transportation (Medical) 1 10/20/2023 Housing Stability Answer Date Recorded Unable to Pay for Housing in the Last Year 1 10/20/2023 Sex and Gender Information Value Date Recorded Sex Assigned at Not on file Gender Identity Not on file Sexual Orientation Not on file Obstetrics History Last Filed Vital Signs Vital Sign Reading Time Taken Comments Blood Pressure 119/69 10/23/2023 6:42 PM CDT Pulse 80 10/23/2023 6:42 PM CDT Temperature 36.7 ??C (98 ??F) 10/23/2023 6:42 PM CDT Respiratory Rate 18 10/23/2023 6:42 PM CDT Oxygen Saturation 98% 10/23/2023 6:42 PM CDT Inhaled Oxygen Concentration - - Weight 56.7 kg (125 lb) 10/23/2023 12:00 AM CDT Height 175.7 cm (5' 9.17) 10/22/2023 6:00 PM CD T Body Mass Index 18.37 10/22/2023 6:00 PM CDT Plan of Treatment Upcoming Encounters Date Type Department Care Team (Late st Contact Info) Description 10/31/2023 11:00 AM CDT Office Visit [facility] [address] [place] [phone] Jessica Minaya PA [address] [place], [place] [id number] 12/03/2023 11:00 AM CDT Telemedicine [facility] [address] [place] [address] Anh Orantes, MS, [facility] [address] [place] [address] Health Maintenance Due Date Last Done Comments [...] 02/28/2017, Additional history exists COVID-19 vaccine series ( season) 2023 12/28/2022, 08/01/2022, 12/20/2021, Additional history exists Influenza for age 65+ 11/25/2023 BMI (ht and wt on same day) for age 18+ 09/23/2024 09/24/2023 Medical Devices Implanted Type Area Senior Research Scientist Device Identifier Shelf Expiration Date Model / Serial / Lot Dura Neuro 2x2in Duragen Plusnon-Sut - [id number] Implanted:Qty: 1 on 10/22/2023 by Sourav Alegre MD at [facility] Right: Cranium Integra valuklikciPower Surge Electric Maggy 07/23/2026 DP-1022 / / [id number] Screw Neuro 4mm Matrixneuro Slf Drill Titnm - [id number] Implanted:Qty: 8 on 10/22/2023 by Sourav Alegre MD at [facility] Right: Cranium J And J Depuy CMF [id number] 4.01 / / Ethel Hole Cover Neuro 17mm Synthes Low Pro Titnm Implanted:Qty: 1 on 10/22/2023 by Sourav Alegre MD at [facility] Right: Cranium [id number] / / Description:[place] Cover Neuro 17mm Synthes Low Pro Titnm [place] Cover Neuro 17mm Synthes Low Pro Shunt Implanted:Qty: 1 on 10/22/2023 by Sourav Alegre MD at [facility] Right: Cranium [id number] / / Description:[place] Hole Cover Neuro 17mm Synthes Low Pro Shunt Procedures The patient is currently admitted. The information in this section might not be complete until the patient is discharged. Procedure Name Priority Date/Time Associated Diagnosis Comments SCAN CORRESP-EKG RESULTS 10/23/2023 9:14 AM CDT SCAN CORRESP-IMAGING 10/23/2023 9:[address] HEAD BRAIN WO Routine 10/23/2023 5:42 AM CDT BASIC METABOLIC PANEL Early AM 10/23/2023 5:16 AM CDT PLATELET COUNT Early AM 10/23/2023 5:16 AM CDT HEMOGLOBIN Early AM 10/23/2023 5:16 AM CDT SCAN-CARDIAC STRIP 10/22/2023 8:07 PM CDT HCHG KIT PR20 Routine 10/22/2023 2:30 PM CDT HCHG KIT PR5 Routine 10/22/2023 2:30 PM CDT HCHG DRSG PR5 Routine 10/22/2023 2:30 PM CDT HCHG DRSG PR1 Routine 10/22/2023 2:30 PM CDT HCHG TUBING PR20 Routine 10/22/2023 2:30 PM CDT HCHG TUBING PR1 Routine 10/22/2023 2:30 PM CDT HCHG ANES US GUIDE FOR VASC ACCESS Routine 10/22/2023 2:30 PM CDT ENDOTRACHEAL TUBE Routine 10/22/2023 2:21 PM CDT CRANIOTOMY SUBDURAL HEMATOMA 10/22/2023 1:13 PM CDT Subdural Hematoma Case Notes LATEX ALLERGYPatient being transferred to [facility] Sunday; Not currently intubated TYPE & SCREEN Early AM 10/22/2023 4:52 AM CDT PROTIME-INR Early AM 10/22/2023 4:52 AM CDT CBC W PLT NO DIFF Early AM 10/22/2023 4:52 AM CDT BASIC METABOLIC PANEL Early AM 10/22/2023 4:51 AM CDT SCAN-CARDIAC STRIP 10/21/2023 10:09 AM CDT TYPE & SCREEN Today 10/21/2023 7:24 AM CDT POTASSIUM Early AM 10/21/2023 6:58 AM CDT SODIUM Early AM 10/21/2023 6:[address] HEAD BRAIN WO ASHLEY 10/20/2023 8:54 AM CDT SCAN-CARDIAC STRIP 10/20/2023 8:37 AM CDT PLATELET COUNT Early AM 10/20/2023 7:00 AM CDT HEMOGLOBIN Early AM 10/20/2023 7:00 AM CDT WHITE BLOOD COUNT Early AM 10/20/2023 7:00 AM CDT MAGNESIUM Early AM 10/20/2023 7:00 AM CDT CREATININE Early AM 10/20/2023 7:00 AM CDT POTASSIUM Early AM 10/20/2023 7:00 AM CDT SODIUM Early AM 10/20/2023 7:00 AM CDT SCAN-CARDIAC STRIP 10/20/2023 2:46 AM CDT SUPRAGLOTTIC-LMA Routine 10/18/2023 9:34 AM CDT MASTECTOMY SIMPLE 10/18/2023 9:02 AM CDT Malignant neoplasm of left breast in female, estrogen receptor negative, unspecified site of breast (HC) Case Notes 90 MINS- SWING- Ok to use Sesar's block Special Needs 5 ft 9 in, 59 kg, BMI 19.22Right arm restrictedAdhesive allergy GLUCOSE METER Timed 10/18/2023 7:26 AM CDT SCAN-CARDIAC STRIP 10/18/2023 12:00 AM CDT ECHO TTE COMPLETE WO CONTRAST Routine 09/26/2023 9:53 AM CDT Syncope and collapse XR MAMMO POST CLIP PLCMT [facility] 09/12/2023 2:44 PM CDT Microcalcificati on of left breast on mammogram XR BIOPSY BREAST NEEDLE W JOSHUA W STEREO GUIDE LT [facility] 09/12/2023 2:37 PM CDT Microcalcificati on of left breast on mammogram PATH TISSUE EXAM Today 09/12/2023 2:05 PM CDT HOLTER MONITOR 48 HOURS Routine 08/14/2023 12:00 AM CDT Syncope XR MAMMO ANN UNI SCREEN LEFT Routine 02/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 Other Clinical Staff OTHER * SCAN CORRESP-IMAGING (10/23/2023 9:13 AM CDT) Anatomical Region Laterality Modality Other Narrative 10/23/2023 9:13 AM CDT Ordered by an unspecified provider. Other Clinical Staff OTHER * CT Head without Contrast (10/23/2023 5:42 AM CDT) Only the most recent of2 resultswithin the time period is included. Anatomical Region Laterality Modality HEAD, BRAIN Computed Tomogra phy 10/23/2023 7:38 AM CDT Impressions 10/23/2023 7:38 AM CDT 1. Interval postop changes of right parietal craniotomy for evacuation of subdural hematoma and placement of subdural drain. Thin residual mixed low-attenuation subdural fluid collection and pneumocephalus adjacent to the right cerebral convexity measuring 4 millimeters in thickness. 2. No hemorrhage elsewhere. 3. No acute infarcts. 4. No mass effect. Basilar cisterns are patent Please note that all CT scans at this facility use dose modulation, iterative reconstruction, and/or weight-based dosing when appropriate to reduce radiation dose to as low as reasonably achievable. Dictated by Jac Adorno MD @ 10/23/2023 7:38:07 AM (Electronically Signed) Narrative 10/23/2023 7:38 AM CDT For Patients: ??As a result of the 21st Century Cures Act, medical imaging exams and procedure reports are released immediately into your electronic medical record. ??You may view this report before your referring provider. ??If you have questions, please contact your health care provider. Indication : Postop evaluation. COMPARISON: 10/20/2023. TECHNIQUE: Noncontrast CT head. FINDINGS: Compared to the previous exam, interval postop changes of right parietal craniotomy for evacuation of subdural hematoma and placement of a subdural drain. Small residual mixed low-attenuation subdural fluid collection and pneumocephalus adjacent to the right cerebral convexity measures approximate 4 mm in maximal thickness. No new intracranial hemorrhage. No acute infarct. No midline shift. No abnormal ventricular dilatation. Mild generalized volume loss. Visualized paranasal sinuses and mastoid air cells are clear. Normal orbits bilaterally. Procedure Note Jac Adorno MD, PhD - 10/23/2023 For Patients: As a result of the Cures Act, medical imagingexams and procedure reports are released immediately into your electronicmedical record. You may view this report before your referring provider.If you have questions, please contact your health care provider. Indication : Postop evaluation. COMPARISON: 10/20/2023. TECHNIQUE: Noncontrast CT head. FINDINGS: Compared to the previous exam, interval postop changes of right parietalcraniotomy for evacuation of subdural hematoma and placement of a subduraldrain. Small residual mixed low-attenuation subdural fluid collection andpneumocephalus adjacent to the right cerebral convexity measuresapproximate 4 mm in maximal thickness. No new intracranial hemorrhage. No acute infarct. No midline shift. Noabnormal ventricular dilatation. Mild generalized volume loss. Visualized paranasal sinuses and mastoid air cells are clear. Normal orbits bilaterally. IMPRESSION: 1. Interval postop changes of right parietal craniotomy for evacuation ofsubdural hematoma and placement of subdural drain. Thin residual mixedlow-attenuation subdural fluid collection and pneumocephalus adjacent tothe right cerebral convexity measuring 4 millimeters in thickness. 2. No hemorrhage elsewhere. 3. No acute infarcts. 4. No mass effect. Basilar cisterns are patent Please note that all CT scans at this facility use dose modulation,iterative reconstruction, and/or weight-based dosing when appropriate toreduce radiation dose to as low as reasonably achievable. Dictated by Jac Adorno MD @ 10/23/2023 7:38:07 AM (Electronically Signed) Juanis CARD CT * PLATELET COUNT (10/23/2023 5:16 AM CDT) Only the most recent of2 resultswithin the time period is included. [facility] PLATELET COUNT 220 140 - 440 thou/cu mm 10/23/2023 6:13 AM CDT [facility] MPV 10.4 6.5 - 11.0 fL 10/23/2023 6:13 AM CDT [facility] Blood BLOOD SPECIMEN / Unknown Venipuncture / Unknown 10/23/2023 5:16 AM CDT 10/23/2023 6:07 AM CDT Ga Juan MD HEMATOLOGY Performing Organization Address [facility] Co de Phone Number [facility] [address] [place] [address], * HEMOGLOBIN (10/23/2023 5:16 AM CDT) Only the most recent of2 resultswithin the time period is included. [facility] HEMOGLOBIN 12.7 12.0 - 16.0 g/dL 10/23/2023 6:13 AM CDT [facility] MCV 87 80 - 100 fL 10/23/2023 6:13 AM CDT [facility] Blood BLOOD SPECIMEN / Unknown Venipuncture / Unknown 10/23/2023 5:16 AM CDT 10/23/2023 6:07 AM CDT Ga Juna MD HEMATOLOGY Performing Organization Address City/[facility] Co de Phone Number [facility] [address] [place] [address], * (ABNORMAL) Basic Metabolic Panel (10/23/2023 5:16 AM CDT) Only the most recent of2 resultswithin the time period is included. Pathologist [facility] SODIUM 141 136 - 145 mmol/L 10/23/2023 6:46 AM [facility] POTASSIUM 4.1 3.5 - 5.1 mmol/L 10/23/2023 6:46 AM T [facility] CHLORIDE 107 98 - 107 mmol/L 10/23/2023 6:46 AM T [facility] CO2,TOTAL 25 22 - 29 mmol/L 10/23/2023 6:46 AM T [facility] ANION GAP 9 5 - 18 10/23/2023 6:46 AM T [facility] GLUCOSE 122(H) 70 - 99 mg/dL 10/23/2023 6:46 AM T [facility] CALCIUM 8.8 8.8 - 10.2 mg/dL 10/23/2023 6:46 AM [facility] BUN 11 8 - 23 mg/dL 10/23/2023 6:46 AM T [facility] CREATININE 0.52 0.50 - 0.90 mg/dL 10/23/2023 6:46 AM T [facility] BUN/CREAT RATIO 21(H) 10 - 20 6:46 AM T [facility] eGFR >90 >90 mL/min/1.7 3m2 10/23/2023 6:46 AM [facility] Comment:As of 2021, eG FR is calculated by the CKD-EPI creatinine equation without race adjustment. ??eGFR can be influenced by muscle mass, exercise, and diet. ??The reported eGFR is an estimation only and is only applicable if the renal function is stable. Blood BLOOD SPECIMEN / Unknown Venipuncture / Unknown 10/23/2023 5:16 AM CDT 10/23/2023 6:10 AM T Juanis [facility] [address] [place] [address], [place] * SCAN-CARDIAC STRIP (10/22/2023 8:07 PM CDT) Scanner OTHER * HCHG ANES US GUIDE FOR VASC ACCESS, HCHG TUBING PR1, HCHG TUBING PR20, HCHG DRSG PR1, HCHG DRSG PR5, HCHG KIT PR5, HCHG KIT PR20 (10/22/2023 2:30 PM CDT) Narrative Aj Erwin MD - 10/22/2023 2:30 PM CDT Aj Erwin MD ? 10/22/2023 ??2:30 PM Arterial Line Patient location during procedure: OR Start time: 10/22/2023 2:05 PM End time: 10/22/2023 2:10 PM Indications: monitoring Staffing Preanesthetic Checklist Completed: patient identified, risks and benefits discussed, consent obtained and timeout performed Arterial Line Patient position: supine. ??Comment:. Laterality: left Site: radial Local Anesthetic: lidocaine 1%. Ultrasound guidance: live ultrasound and ultrasound permanent image saved. Securement/dressing: Biopatch applied, line sutured in place, dressing applied. ??Comment: Needle Catheter size: 20 G. ??Comment:. Catheter length: 12 cm. ??Comment: Events: no complications. Aj Erwin MD ANESTHESIA PX NOT E ORDERABLES * ETT (10/22/2023 2:21 PM CDT) Narrative Sonia Martinez CRNA Student - 10/22/2023 2:21 PM CDT Sonia Martinez CRNA Student ? 10/22/2023 ??2:21 PM Procedure: ETT Patient location during procedure: OR ETT Properties Mask Ventilation: oral airway Final Technique: direct laryngoscopy Type: straight Location: oral Cuffed: yes Stylet: yes Laryngoscope Blade: Medina Blade Size: 2 Insertion Attempts: 1 Placement Verification: auscultation, end tidal CO2, symmetrical chest wall movement and cuff palpation Assessment: pharynx clear, atraumatic and dentition unchanged Secured at: 22 Measured From: lips Difficulty: 0 (not difficult) Aj Erwin MD ANESTHESIA PX NOT E ORDERABLES * TYPE & SCREEN (10/22/2023 4:52 AM CDT) Only the most recent of2 resultswithin the time period is included. ABORH A Rh Positive 10/22/2023 6:07 AM CDT [facility] ANTIBODY SCREEN Negative Negative 10/22/2023 6:07 AM CDT [facility] SPECIMEN EXPIRATION DATE/TIME 10/25/23 23:59 10/22/2023 6:07 AM CDT [facility] Blood BLOOD SPECIMEN / Unknown Venipuncture / Unknown 10/22/2023 4:52 AM CDT 10/22/2023 5:19 AM CDT Candice Ray NP BLOOD BANK [facility] [address] [place] [address], * CBC W PLT NO DIFF (10/22/2023 4:52 AM CDT) WHITE BLOOD COUNT 6.4 4.5 - 11.0 thou/cu mm 10/22/2023 5:24 AM CDT [facility] RED BLOOD COUNT 4.70 4.00 - 5.20 mil/cu mm 10/22/2023 5:24 AM CDT [facility] HEMOGLOBIN 13.2 12.0 - 16.0 g/dL 10/22/2023 5:24 AM CDT [facility] HEMATOCRIT 41.2 33.0 - 51.0 % 10/22/2023 5:24 AM CDT [facility] MCV 88 80 - 100 fL 10/22/2023 5:24 AM CDT [facility] MCH 28.1 26.0 - 34.0 pg 10/22/2023 5:24 AM CDT [facility] MCHC 32.0 32.0 - 36.0 g/dL 10/22/2023 5:24 AM CDT [facility] RDW 12.1 11.5 - 15.5 % 10/22/2023 5:24 AM CDT [facility] PLATELET COUNT 214 140 - 440 thou/cu mm 10/22/2023 5:24 AM CDT [facility] MPV 9.9 6.5 - 11.0 fL 10/22/2023 5:24 AM CDT [facility] NRBC 0.0 % 10/22/2023 5:24 AM CDT [facility] ABS NRBC 0.0 thou /cu mm 10/22/2023 5:24 AM CDT [facility] Blood BLOOD SPECIMEN / Unknown Venipuncture / Unknown 10/22/2023 4:52 AM CDT 10/22/2023 5:19 AM CDT Gianfranco Gil MD HEMATOLOGY Performing Organization Address City/State/[facility] Co de Phone Number [facility] [address] [place] [address], * PROTIME-INR (10/22/2023 4:52 AM CDT) INR 1.1 <1.3 10/22/2023 5:31 AM CDT [facility] PROTIME 12.2 10.3 - 12.3 sec 10/22/2023 5:31 AM CDT [facility] Blood BLOOD SPECIMEN / Unknown Venipuncture / Unknown 10/22/2023 4:52 AM CDT 10/22/2023 5:19 AM CDT Narrative [facility] - 10/22/2023 5:31 AM CDT ?Therapeutic Range 2.0-3.0 for most anticoagulated patients 2.5-3.5 or 4.0 for high risk patients The INR is only used for patients on stable oral anticoagulant therapy. It makes no significant contribution to the diagnosis or treatment of patients whose Protime is prolonged for other reasons. INR results are increased when heparin levels exceed 1.0 U/mL, which corresponds to an aPTT >125 seconds if the patient is on UFH. Gianfranco Gil MD HEMATOLOGY Performing Organization Address City/[facility]/ZIP Co de Phone Number [facility] [address] [place] [address], * SCAN-CARDIAC STRIP (10/21/2023 10:09 AM CDT) Scanner OTHER * SODIUM (10/21/2023 6:58 AM CDT) Only the most recent of2 resultswithin the time period is included. SODIUM 140 136 - 145 mmol/L 10/21/2023 7:49 AM CDT [facility] Blood BLOOD SPECIMEN / Unknown Venipuncture / Unknown 10/21/2023 6:58 AM CDT 10/21/2023 7:31 AM CDT Howard Crowe MD CHEMISTRY Performing Organization Address [facility] Co de Phone Number [facility] SENDOUT [place] ZIP [phone] [place] [phone] * POTASSIUM (10/21/2023 6:58 AM CDT) Only the most recent of2 resultswithin the time period is included. POTASSIUM 4.2 3.5 - 5.1 mmol/L 10/21/2023 7:49 AM CDT [facility] Blood BLOOD SPECIMEN / Unknown Venipuncture / Unknown 10/21/2023 6:58 AM CDT 10/21/2023 7:31 AM CDT Howard Crowe MD CHEMISTRY Performing Organization Address [facility]/ZIP Co de Phone Number [facility] SENDOUT INTERNAL ZIP [phone] [place] [phone] * SCAN-CARDIAC STRIP (10/20/2023 8:37 AM CDT) Scanner OTHER * WHITE BLOOD COUNT (10/20/2023 7:00 AM CDT) WHITE BLOOD COUNT 6.2 4.5 - 11.0 thou/cu mm 10/20/2023 8:44 AM CDT [facility] NRBC 0.0 % 10/20/2023 8:44 AM CDT [facility] ABS NRBC 0.0 thou /cu mm 10/20/2023 8:44 AM CDT [facility] Blood BLOOD SPECIMEN / Unknown Venipuncture / Unknown 10/20/2023 7:00 AM CDT 10/20/2023 8:41 AM CDT Freddy Simmons MD HEMATOLOGY Performing Organization Address City/[facility]/ZIP Co de Phone Number [facility] SENDOUT INTERNAL ZIP [phone] [place] [phone] * CREATININE (10/20/2023 7:00 AM CDT) Pathologist [facility] eGFR >90 >90 mL/min/1.7 3m2 10/20/2023 9:02 AM CDT [facility] Comment:As of 2021, eG FR is calculated by the CKD-EPI creatinine equation without race adjustment. ??eGFR can be influenced by muscle mass, exercise, and diet. ??The reported eGFR is an estimation only and is only applicable if the renal function is stable. CREATININE 0.56 0.50 - 0.90 mg/dL 10/20/2023 9:02 AM CDT [facility] Blood BLOOD SPECIMEN / Unknown Venipuncture / Unknown 10/20/2023 7:00 AM CDT 10/20/2023 8:41 AM CDT Freddy Simmons MD CHEMISTRY [facility] SENDOUT INTERNAL ZIP [phone] [place] [phone] * MAGNESIUM (10/20/2023 7:00 AM CDT) Pathologist [facility] MAGNESIUM 2.1 1.6 - 2.4 mg/dL 10/20/2023 9:02 AM CDT [facility] Blood BLOOD SPECIMEN / Unknown Venipuncture / Unknown 10/20/2023 7:00 AM CDT 10/20/2023 8:41 AM CDT Freddy Simmons MD CHEMISTRY Performing Organization Address [facility] Co de Phone Number [facility] SENDOUT [place] [address]IP [phone] [place] [address] * SCAN-CARDIAC STRIP (10/20/2023 2:46 AM CDT) Scanner OTHER * Supraglottic (10/18/2023 9:34 AM CDT) Narrative [...] 10/18/2023 7:30 AM CDT [facility] Blood BLOOD SPECIMEN / Unknown 10/18/2023 7:26 AM CDT 10/18/2023 7:30 AM CDT Rafael Angel MD CHEMISTRY Performing Organization Address [facility]/ZIP Co de Phone Number [facility] SENDOUT [place] ZIP [phone] [place] [address] * SCAN-CARDIAC STRIP (10/18/2023 12:00 AM CDT) Narrative 10/18/2023 12:00 AM CDT Ordered by an unspecified provider. 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 [id number] : ?1950 73 years Study Date: ?? 09/26/2023 9:04:12 AM Gender: F ? BP: ? 130/78 mmHg Height: 175.30 cm ? BSA: ?1.71 m? ? ? Weight: 58.50 kg ?Tech: ? MJJ ?Referring MD: MADDI PHIPPS Site: ? [facility] Reading Location: MOBILE-OP Patient Location: Outpatient. Procedure: [...] . This study was interpreted by an [facility] accredited facility. CC: HIM ([facility]) [facility]. ??Final ?? Procedure Note Bryson Hart MD - 09/26/2023 ECHOCARDIOGRAM FREDI JETT : 1950 73 years Study Date: 09/26/2023 9:04:12 AM Gender: F BP: 130/78 mmHg Height: 175.30 cm BSA: 1.71 m? ? ? Weight: 58.50 kg Tech: SAL Referring MD: MADDI PHIPPS Site: [facility] Reading Location: MOBILE-OP Patient Location: [...] interpreted by an [facility] accredited facility. CC: [facility] (med records) [facility]. Final Maddi Phipps MD ECHO ORD * [...] POST-BIOPSY MAMMOGRAM CLIP PLACEMENT 09/12/2023 PLEASE SEE [id number] FOR REPORT OF LEFT BREAST STEREOTACTIC BIOPSY [...] discussed with Parris, breast nurse navigator for [facility]. ??She will contact the patient and arrange for surgical consultation. Dolores Hung, MSN, RN, DIRECTOR OF COMPLIANCE [email or web address] Impressions 09/18/2023 3:56 PM CDT ??Stereotactic vacuum-assisted breast biopsy. ??When the pathology report is available, an addendum to this report will be made. ACR not applicable Lisa Doshi M.D. Diagnostic/Breast Radiologist [email or web address] [email or web address] AMANDO/fide / ?? Narrative 09/18/2023 3:56 PM [...] using a dedicated stereotactic biopsy unit. ??Straight product safety head and pre- and post-biopsy stereo pair spot [...] the patient and a consent was signed. ??[place] Protocol was followed including pre-procedure verification that [...] PM CDT) Case Report Pathology Report ?Case: [id number] ? Authorizing Provider: ??Sandi Abdullahi MD ??Collected: ? 09/12/2023 1405 ? Ordering Location: ? [facility] ? Received: ?09/12/2023 1410 ? [facility] ? [facility] [place] ? Pathologist: ? Didi Mullins MD ? Specimen: ?Left Breast Core Stereotactic Biopsy, calcifications ? 09/14/2023 9:44 AM CDT [facility] Amendment 09/14/2023 - Amendmen t issued to incorporate ancillary ER studies. 09/14/2023 9:44 AM CDT [facility] Final Diagnosis A) LEFT BREAST, [...] (by manual morphometry) 09/14/2023 9:44 AM T [facility] Amendment electronically signed by Poncho Nunez [...] consultation with Dr. Nunez. 09/14/2023 9:44 AM [facility] Clinical Information CLINICAL HISTORY: ??LEFT breast microcalcifications. LATERALITY: ??LEFT. LESION: ??0.7 cm loosely grouped pleomorphic microcalcifications at 3 o'clock, 7 cm from the nipple. BIOPSY CLIP SHAPE: ??[employer]. On target. 09/14/2023 9:44 AM [facility] Gross Description A) Label: Patient's name [...] 72 hours. EVM 09/12/2023 09/14/2023 9:44 AM [facility] Microscopic Description The final diagnosis is [...] additional levels are necessary. 09/14/2023 9:44 AM [facility] SYNOPTIC REPORTING Breast Biomarker Reporting Template [...] Chong Scoring System 09/14/2023 9:44 AM CDT [facility] Additional Information Interpreted at [facility] - [address] [place] [id number] Immunohistochemistry controls were reviewed and approved by the pathologist during this examination. 09/14/2023 9:44 AM CDT [facility] Other (Left Breast Core Stereotactic Biopsy) 09/12/2023 2:05 PM CDT 09/12/2023 2:10 PM CDT Sandi Abdullahi MD PATHOLOGY/CYTOLO [facility] [address] [place] [address], * HOLTER MONITOR 48 HOURS (08/14/2023 12:00 AM CDT) Mau Lawrence MD CARDIAC SERVICES ORD * XR MAMMO ANN UNI SCREEN LEFT (02/25/2019 11:36 AM SPORTS TEACHER) Anatomical Region Laterality Modality BREASTS, Breast Left Left Mammography Impressions 02/25/2019 2:04 PM SPORTS TEACHER ??There is no radiographic evidence for malignancy. ??Recommend annual mammograms. A lay language report of this examination will be provided to the patient. MAMMOGRAM ASSESSMENT: ??ACR 1 Negative Narrative 02/25/2019 2:04 PM SPORTS TEACHER XR MAMMO ANN UNI SCREEN LEFT [[id number]] CLINICAL HISTORY: ??This is an asymptomatic 68 y.o. patient. INDICATION FOR EXAM: Mammogram Screening. TECHNIQUE: CC & MLO views were obtained. ??This digital study was evaluated with the assistance of Computer-Aided Detection. Breast Tomosynthesis was used in interpretation. COMPARISON FILM: Yes 02/22/18 [facility] 01/10/17 [facility] FINDINGS: ??Mammographically, the breast tissue is extremely dense. ??This may lower the sensitivity of mammography. ??There are no dominant masses, suspicious micro calcifications or areas of architectural distortion. Sandi Abdullahi MD MAMMO from Last 3 Months or Most Recently Relevant to Health Maintenance Advance Directives * Full Code (Latest Code Status on File) Date Activated Date Inactivated Comments 10/23/2023 4:21 PM Question Answer Comments Code Status Discussion: Reviewed Preferences * Full Code Date Activated Date Inactivated Comments 10/22/2023 10:45 AM 10/23/2023 4:21 PM Question Answer Comments Code Status Discussion: Unable to Assess Preferences, Provider to review later * Full Code Date Activated Date Inactivated Comments 10/21/2023 10:08 PM 10/22/2023 10:45 AM Question Answer Comments Code Status Discussion: Reviewed Preferences * Full Code Date Activated Date Inactivated Comments 10/20/2023 12:27 AM 10/21/2023 9:55 PM Question Answer Comments Code Status Discussion: Reviewed Preferences * Full Code Date Activated Date Inactivated Comments 10/18/2023 7:18 AM 10/18/2023 4:12 PM Question Answer Comments Code Status Discussion: Discussed Care Teams Aluminum Pourer Relationship Specialty Start Date End Date Sandi Abdullahi MD [address] [place] [address] PCP - General Family Practice 02/08/17 Amber Foy RN [address] [address] Nurse Navigator - Oncology Registered Nurse 09/21/23 Rafael Angel MD [address] [id number] Surgery - Oncology 09/21/23
== END 2023-10-19 23:07 | disposition home or self-care (01) ==
LOC: AMB 10-23 19:29
PROVIDERS: PCP Family Medicine; Visit Provider Family Medicine
DX: R53.1 Weakness (principal)
CPT/HCPCS: A0425; A0427

== ENCOUNTER 2023-11-19 10:44 | Outpatient (CLI) | payer MEDICARE, BC, SELFPAY ==
--- OUTSIDE RECORDS SUMMARY | 2023-11-19 10:47 | XMS_ITS | Clinical Summary ---
Author Organization [employer] [facility] Address [place], [place] [address] Care Team Providers Care Log Haul Operator Name Role Phone Sandi Abdullahi MD Primary Care Provider + Amber Foy RN Unavailable [phone] Rafael Angel MD Unavailable [phone] [facility] [place] Unavailable Allergies Active Allergy Reactions Criticality Noted Date Comments Adhesive Tape-Silicones Contact Dermatitis High 09/24/2023 Severe blistering Ibuprofen Other - Describe [...] and 6 mastectomy bras. 1 Packet 3 4 Active cholecalciferol (Vitamin D) 1,000 unit capsule Take 1,000 units by mouth once daily. Active mecobalamin, vitamin B12, 1,[address] 1,000 mcg under the tongue once daily. Active vit-min eye [id number] 0mg (PreserVision AREDS) capsule Take 1 Capsule by mouth two times daily. Active acetaminophen (TYLENOL EXTRA STRGTH) 500 mg tabletIndication s:Malignant neoplasm of left breast in female, estrogen receptor negative (HC) Take 2 Tablets (1,000 mg) by mouth every 6 hours if needed for Pain. Max acetaminophen dose: 4000mg in 24 hrs. 4 Active WalkerIndication s:S/P craniotomy,Chron ic subdural hematoma (HC) Walker with front wheels for home use. 1 Each 4 Active polyethylene glycoL (MIRALAX) 17 gram/scoop powderIndication s:Constipation, unspecified constipation type Take 1 scoop (17 g) by mouth or nasogastric tube once daily if needed for Constipation. 510 g 4 Active sennosides-docus ate (SENOKOT S) (8.6-50 mg) tabletIndication s:Constipation, unspecified constipation type Take 1-4 Tablets by mouth 2 times daily if needed for Constipation. 40 Tablet 4 Active hydrocortisone 1 % cream Apply 1 Strip topically to affected area(s) 4 times daily if needed for Itching. Active levETIRAcetam (KEPPRA) 500 mg tabletIndication s:Midline shift of brain,Left hemiparesis (HC),Malignant neoplasm of left breast in female, estrogen receptor negative, unspecified site of breast (HC) Take 1 Tablet (500 mg) by mouth two times daily. 4 10/25/19 24 Discontinued levETIRAcetam (KEPPRA) 500 mg tabletIndication s:Midline shift of brain,Left hemiparesis (HC),Malignant neoplasm of left breast in female, estrogen receptor negative, unspecified site of breast (HC) Take 1 Tablet (500 mg) by mouth two times daily. 10 Tablet 4 11/01/19 24 Discontinued(*M ed complete/Regime n complete/Level of care change) Active Problems Problem Noted Date Diagnosed Date S/P craniotomy 10/24/2023 Chronic subdural hematoma 10/21/2023 Left hemiparesis 10/20/2023 Midline shift of brain 10/20/2023 Malignant neoplasm of left b reast in female, estrogen receptor negative 09/24/2023 Cancer Staging:Clinical stage from 09/24/2023:Stage 0(cTis (DCIS), cN0, cM0, ER-, OH: Not Assessed, HER2: Not Assessed) - Signed by Rafael Angel MD on 09/24/2023 Pathologic stage from 10/18/2023:Stage Unknown(pT1a, pNX, cM0, G2, ER-, OH-, HER2: Equivocal) - Signed by Jessica Minaya PA on 10/31/2023 Encounters Date Type Department Care Team Description 11/16/2023 4:00 PM CDT Home Care Visit [facility] [address] [place] [address] Mliagros Og RN SN - HOME VISIT 11/16/2023 2:00 PM CDT Home Care Visit [facility] [address] [place] [address] Fritz Riggs OT OT - HOME VISIT 11/16/2023 10:15 AM CDT Home Care Visit [facility] [address] [place] [address] Poncho Simons, PT PT - HOME VISIT 11/16/2023 Travel 11/14/2023 2:00 PM CDT Home Care Visit [facility] [address] [place] [address] Ashok Vega, MANAGER COMMISSION MANAGER COMMISSION - INITIAL ASSESSMENT 11/13/2023 10:15 AM CDT Home Care Visit [facility] [address] [place] [address] Poncho Simons, PT PT - HOME VISIT 11/13/2023 Travel 11/12/2023 2:00 PM CDT Nurse/Clinic Staff Only [facility] [address] [place] [address] 11/12/2023 Oncology Nurse Navigator Task [facility] [address] [place] [address] Amber Foy RN 11/12/2023 Travel 11/12/2023 Telephone [facility] [address] [place] [address] Rafael Angel MD Questions 11/09/2023 10:15 AM CDT Home Care Visit [facility] [address] [place] [address] Poncho Simons, PT PT - HOME VISIT 11/09/2023 Travel 11/08/2023 1:00 PM CDT Home Care Visit [facility] [address] [place] [address] Milagros Og, DICK SN - HOME VISIT 11/07/2023 4:00 PM CDT Home Care Visit [facility] [address] [place] [address] Fritz Riggs, OT OT - HOME VISIT 11/07/2023 10:50 AM CDT Office Visit [facility] [address] [place] [address] Rafael Angel MD Follow Up 11/07/2023 Travel 11/05/2023 1:30 PM CDT [facility] [address] [address] Melva Melendrez, COMMUNICATIONS ENGINEERING TECHNICIAN Post-op (s/p 10/22/23 RIGHT SIDED CRANIOTOMY FOR SUBDURAL HEMATOMA EVACUATION) 11/05/2023 10:00 AM CDT Home Care Visit [facility] [address] [place] [address] Isi Small, PT PT - HOME VISIT 11/05/2023 Travel 11/02/2023 11:00 AM CDT Home Care Visit [facility] [address] [place] [address] Isi [place], PT PT - HOME VISIT 11/01/2023 12:30 PM CDT Home Care Visit [facility] [address] [place] [address] Milagros Og RN SN - HOME VISIT 11/01/2023 11:15 AM CDT Home Care Visit [facility] [address] [place] [address] Fritz Riggs, OT OT - INITIAL ASSESSMENT 11/01/2023 Orders Only [facility] [address] [place] [address] Milagros Og RN <No scans attached> 10/31/2023 12:30 PM CDT - 10/31/2023 11:59 PM CDT Hospital Encounter [facility] [address] [facility] [address] [place] [address] Jessica Minaya PA Fluid collection at surgical site, initial encounter 10/31/2023 11:00 AM CDT Office Visit [facility] [address] [facility] [address] [place] [address] Jessica Minaya PA Post-op 10/31/2023 Travel 10/30/2023 Home Care Visit [facility] [address] [place] [address] Baylee Haines RN CARE COORDINATION 10/29/2023 11:30 AM CDT Home Care Visit [facility] [address] [place] [address] Isi [place], PT PT - INITIAL ASSESSMENT 10/29/2023 Travel 10/29/2023 Home Care Visit [facility] [address] [place] [address] Baylee Haines RN CARE COORDINATION 10/28/2023 9:30 AM CDT Home Care Visit [facility] [address] [place] [address] Modesta Jones, DICK SN - OASIS START OF CARE 10/28/2023 Plan of Care Documentation [facility] [address] [place] [address] 10/27/2023 Home Care Visit [facility] [address] [place] [address] Baylee Haines, RN CARE COORDINATION 10/27/2023 Home Care Visit [facility] [address] [place] [address] Baylee Haines RN CARE COORDINATION 10/27/2023 Home Care Visit [facility] [address] [place] [address] Baylee Haines, RN CARE COORDINATION 10/22/2023 1:42 PM CDT Anesthesia Event [facility] [address] [place] [address] Aj Erwin MD Nies, Snoia Schwab, PULLBOAT ENGINEER Student 10/22/2023 11:12 AM CDT - 10/22/2023 2:24 PM CDT Surgery [facility] [address] [place] [address] Sourav Alegre MD RIGHT SIDED CRANIOTOMY FOR SUBDURAL HEMATOMA EVACUATION 10/21/2023 9:54 PM CDT - 10/25/2023 6:00 PM CDT Hospital Encounter [facility] [address] [place] [address] [facility] Hospitalists [facility], MD Drake Arias Charles Edward, MD Litell, Wilder Millan, DO Holt, Toña Galvez MD S/P craniotomy (Primary Dx); Chronic subdural hematoma (HC); Constipation, unspecified constipation type; Midline shift of brain; Left hemiparesis (HC); Malignant neoplasm of left breast in female, estrogen receptor negative, unspecified site of breast (HC) Discharge Disposition: Home Health 10/20/2023 12:06 AM CDT - 10/21/2023 9:23 PM CDT Hospital Encounter [address] [address] s, U Hospitalist Freddy Oneill MD Chaudhry, Saadia Zafar, MD Midline shift of brain (Primary Dx); Malignant neoplasm of left breast in female, estrogen receptor negative (HC); Left hemiparesis (HC); Malignant neoplasm of left breast in female, estrogen receptor negative, unspecified site of breast (HC) Discharge Disposition: Hospice Medical Facility 10/20/2023 Travel 10/19/2023 Office Visit [facility] [address] [facility] [address] [place] [address] Narcisa Owusu MD Telehealth ([facility]) 10/19/2023 Telephone [facility] [address] [facility] [address] [place] [address] Rafael Angel MD Questions 10/18/2023 9:20 AM CDT - 10/18/2023 11:18 AM CDT Surgery [address] [address] Rafael Angel MD Left mastectomy with injection of Magtrace 10/18/2023 9:12 AM CDT Anesthesia Event [address] [address] Torrey Taylor MD Nolan Norman, Megan Maureen, MD 10/18/2023 7:11 AM CDT - 10/18/2023 2:00 PM CDT Hospital Encounter [facility] [address] [place] [address] Rafael Angel MD Malignant neoplasm of left breast in female, estrogen receptor negative (HC) (Primary Dx) Discharge Disposition: Home Self Care 10/17/2023 Travel 09/26/2023 9:00 AM CDT Ancillary Procedure [facility] [address] [place] [address] 09/26/2023 Telephone [facility] [address] [facility] [address] [place] [address] Maddi Phipps MD Results 09/25/2023 Telephone [facility] [address] [place] [address] Maegan Bright CMA Surgery Scheduled 09/24/2023 11:00 AM CDT Office Visit [facility] [address] [place] [address] Rafael Angel MD Consult 09/24/2023 Travel 09/20/2023 1:30 PM CDT Office Visit [facility] [address] [place] [address] Maddi Phipps MD 09/20/[address] [place] [address] [facility] Cancer Referral (Ductal carcinoma in situ, left breast ) 09/12/2023 1:15 PM CDT - 09/12/2023 11:59 PM CDT Hospital Encounter [address] [place] [address] Sandi Abdullahi MD Microcalcification of left breast on mammogram 09/12/2023 Travel from Last 3 Months Family History Medical [...] Sign Reading Time Taken Comments Blood Pressure 120/64 11/16/2023 4:06 PM CDT Pulse 78 11/16/2023 4:06 PM CDT Temperature 36.9 ??C (98.5 ??F) 11/16/2023 4:06 PM CD T Respiratory Rate 18 11/16/2023 4:06 PM CDT Oxygen Saturation 98% 11/16/2023 4:06 PM CDT Inhaled Oxygen Concentration - - Weight 56.7 kg (125 lb) 11/07/2023 10:52 AM CDT Height 175.3 cm (5' 9) 11/07/2023 10:52 AM CDT Body Mass Index 18.46 11/07/2023 10:52 AM CDT Plan of Treatment Upcoming Encounters Date Type Department Care Team (Late st Contact Info) Description 11/20/2023 10:00 AM CDT Home Care Visit [address] [address] Poncho Simons, PT [address] [place] [address] 11/20/2023 1:30 PM CDT Home Care Visit [address] [address] Ashok Vega, MANAGER COMMISSION [address] [place] [address] 11/21/2023 11:20 AM CDT Office Visit [facility] [address] [facility] [address] [place] [address] Rafael Angel MD [address] [facility] [address] [place], [place] [address] 11/22/2023 5:30 AM CDT Home Care Visit [place] [address] [place] [address] Fritz Riggs, OT [address] [place] [address] 11/22/2023 3:00 PM CDT Home Care Visit [facility] [address] [place] [address] Milagros Og, DICK 11/23/2023 10:00 AM CDT Home Care Visit [facility] [address] [place] [address] Poncho Simons, PT [address] [place] [address] 11/30/2023 11:30 AM CDT Phone Office Visit [facility] [address] [place] [address] Melva Melendrez, COMMUNICATIONS ENGINEERING TECHNICIAN [address] [place] [address] 12/03/2023 11:00 AM CDT Telemedicine [facility] [place] [facility] [place] [facility] [address] [place] [address] Anh Orantes, MS, [facility] [address] [facility] [address] [place] [address] Health Maintenance Due Date Last Done Comments [...] wt on same day) for age 18+ 11/06/2024 11/07/2023, 09/24/2023 Medical Devices Implanted Type Area Airport Location Manager Device Identifier Shelf Expiration Date Model / Serial / Lot Dura Neuro 2x2in Duragen Plusnon-Sut - [id number] Implanted:Qty: 1 on 10/22/2023 by Sourav Alegre MD at [facility] Right: Cranium [employer] Maggy 07/23/2026 DP-1022 / / [id number] Screw Neuro 4mm Matrixneuro Slf Drill Titnm - [id number] Implanted:Qty: 8 on 10/22/2023 by Sourav Alegre MD at [facility] Right: Cranium J And J Depuy CMF [id number] 4.01 / / [place] Cover Neuro 17mm Synthes Low Pro Titnm Implanted:Qty: 1 on 10/22/2023 by Sourav Alegre MD at [facility] Right: Cranium [id number] / / Description:[place] Cover Neuro 17mm Synthes Low Pro Titnm [place] Cover Neuro 17mm Synthes Low Pro Shunt Implanted:Qty: 1 on 10/22/2023 by Sourav Alegre MD at [facility] Right: Cranium [id number] / / Description:[place] Cover Neuro 17mm Synthes Low Pro Shunt Procedures Procedure Name Priority Date/Time Associated Diagnosis Comments SCAN CORRESP-IMAGING 11/02/2023 1:47 PM CDT US [facility] 10/31/2023 1:25 PM CDT Fluid collection at surgical site, initial encounter [facility] BRE[facility] UNILATERAL [facility] 10/31/2023 12:52 PM CDT Fluid collection at surgical site, initial encounter SCAN-CARDIAC STRIP 10/31/2023 12:00 AM CDT CREATININE Early AM 10/24/2023 6:17 AM CDT POTASSIUM Early AM 10/24/2023 6:17 AM CDT SODIUM Early AM 10/24/2023 6:17 AM CDT PLATELET COUNT Early AM 10/24/2023 6:17 AM CDT HEMOGLOBIN Early AM 10/24/2023 6:17 AM CDT SCAN CORRESP-EKG RESULTS 10/23/2023 9:14 AM CDT [...] Case Notes [facility]; Not currently intubated TYPE & SCREEN [...] SODIUM Early AM 10/21/2023 6:58 AM CDT SCAN-CARDIAC STRIP 10/21/2023 12:[address] HEAD BRAIN WO ASHLEY [...] CDT SCAN-CARDIAC STRIP 10/20/2023 2:46 AM CDT SCAN-CARDIAC STRIP 10/20/2023 12:00 AM CDT PATH TISSUE EXAM Today 10/18/2023 10:12 AM CDT CG HER2 BREAST Routine 10/18/2023 10:12 AM CDT CYTOGENETICS MALIGNANT TISSUE Routine 10/18/2023 10:12 AM CDT SUPRAGLOTTIC-LMA Routine 10/18/2023 9:34 AM [...] NEEDLE W JOSHUA W STEREO GUIDE LT ASHLEY 09/12/2023 2:37 PM CDT Microcalcificati on of left breast on mammogram PATH TISSUE EXAM Today 09/12/2023 2:05 PM CDT XR MAMMO ANN UNI SCREEN LEFT Routine 02/25/2019 11:36 AM PHARMACY OPERATIONS SPECIALIST Visit for screening mammogram from Last 3 Months or Most Recently Relevant to Health Maintenance Results * SCAN CORRESP-IMAGING (11/02/2023 1:47 PM CDT) Only the most recent of2 resultswithin the time period is included. Anatomical Region Laterality Modality Other Narrative 11/02/2023 1:47 PM CDT Ordered by an unspecified provider. Other Clinical Staff OTHER * [facility] (10/31/2023 1:25 PM CDT) Anatomical Region Laterality Modality BREASTS, Breast Left, Breast Right Ultrasound 10/31/2023 1:25 PM CDT Impressions 10/31/2023 3:18 PM CDT Status post ultrasound-guided puncture and aspiration of the left breast. Reference CPT Code: 58372, 15671 Narrative 10/31/2023 3:18 PM CDT For Patients: As a result of the Century Cures Act, medical imaging exams and procedure reports are released immediately into your electronic medical record. You may view this report before your referring provider. If you have questions, please contact your health care provider. EXAM: 1. PUNCTURE AND ASPIRATION OF THE LEFT BREAST 2. ULTRASOUND GUIDANCE LOCATION: [facility] DATE: 10/31/2023 INDICATION: Fluid Collection At Surgical Site, Initial Encounter PRE-PROCEDURE IMAGING: Targeted sonographic evaluation of the left breast along the mastectomy scar demonstrates a curvilinear fluid collection extending into the axillary tail, measuring up to 5.6 cm in longest extent, consistent with a residual postsurgical hematoma/seroma. PROCEDURE: Informed consent obtained. Time out performed. The site was prepped and draped in sterile fashion. 10 mL of 1% lidocaine was infused into the local soft tissues. Under direct ultrasound guidance, a 16 gauge needle was placed into the fluid pocket and 85 ml of bloody fluid was aspirated. This was discarded. Procedure Note Og Garcia MD - 10/31/2023 For Patients: As a result of the Cures Act, medical imagingexams and procedure reports are released immediately into your electronicmedical record. You may view this report before your referring provider.If you have questions, please contact your health care provider. EXAM: 1. PUNCTURE AND ASPIRATION OF THE LEFT BREAST 2. ULTRASOUND GUIDANCE LOCATION: [facility] DATE: 10/31/2023 INDICATION: Fluid Collection At Surgical Site, Initial Encounter PRE-PROCEDURE IMAGING: Targeted sonographic evaluation of the left breastalong the mastectomy scar demonstrates a curvilinear fluid collectionextending into the axillary tail, measuring up to 5.6 cm in longestextent, consistent with a residual postsurgical hematoma/seroma. PROCEDURE: Informed consent obtained. Time out performed. The site wasprepped and draped in sterile fashion. 10 mL of 1% lidocaine was infusedinto the local soft tissues. Under direct ultrasound guidance, a 16 gaugeneedle was placed into the fluid pocket and 85 ml of bloody fluid wasaspirated. This was discarded. IMPRESSION: Status post ultrasound-guided puncture and aspiration of the leftbreast. Reference CPT Code: 79623, 24002 Jessica CARD US * US BREAST UNILATERAL LEFT LIMITED (10/31/2023 12:52 PM CDT) Anatomical Region Laterality Modality BREASTS, Breast Left, Breast Right Left Ultrasound 10/31/2023 12:5 2 PM CDT Impressions 10/31/2023 3:18 PM CDT Status post ultrasound-guided puncture and aspiration of the left breast. Reference CPT Code: 72561, 79019 Narrative 10/31/2023 3:18 PM CDT For Patients: As a result of the Cures Act, medical imaging exams and procedure reports are released immediately into your electronic medical record. You may view this report before your referring provider. If you have questions, please contact your health care provider. EXAM: 1. PUNCTURE AND ASPIRATION OF THE LEFT BREAST 2. ULTRASOUND GUIDANCE LOCATION: [facility] DATE: 10/31/2023 INDICATION: Fluid Collection At Surgical Site, Initial Encounter PRE-PROCEDURE IMAGING: Targeted sonographic evaluation of the left breast along the mastectomy scar demonstrates a curvilinear fluid collection extending into the axillary tail, measuring up to 5.6 cm in longest extent, consistent with a residual postsurgical hematoma/seroma. PROCEDURE: Informed consent obtained. Time out performed. The site was prepped and draped in sterile fashion. 10 mL of 1% lidocaine was infused into the local soft tissues. Under direct ultrasound guidance, a 16 gauge needle was placed into the fluid pocket and 85 ml of bloody fluid was aspirated. This was discarded. Procedure Note Og Garcia MD - 10/31/2023 For Patients: As a result of the Cures Act, medical imagingexams and procedure reports are released immediately into your electronicmedical record. You may view this report before your referring provider.If you have questions, please contact your health care provider. EXAM: 1. PUNCTURE AND ASPIRATION OF THE LEFT BREAST 2. ULTRASOUND GUIDANCE LOCATION: [facility] DATE: 10/31/2023 INDICATION: Fluid Collection At Surgical Site, Initial Encounter PRE-PROCEDURE IMAGING: Targeted sonographic evaluation of the left breastalong the mastectomy scar demonstrates a curvilinear fluid collectionextending into the axillary tail, measuring up to 5.6 cm in longestextent, consistent with a residual postsurgical hematoma/seroma. PROCEDURE: Informed consent obtained. Time out performed. The site wasprepped and draped in sterile fashion. 10 mL of 1% lidocaine was infusedinto the local soft tissues. Under direct ultrasound guidance, a 16 gaugeneedle was placed into the fluid pocket and 85 ml of bloody fluid wasaspirated. This was discarded. IMPRESSION: Status post ultrasound-guided puncture and aspiration of the leftbreast. Reference CPT Code: 65389, 79066 Jessica CARD US * SCAN-CARDIAC STRIP (10/31/2023 12:00 AM CDT) Narrative 10/31/2023 12:00 AM CDT Ordered by an unspecified provider. Other Clinical Staff OTHER * PLATELET COUNT (10/24/2023 6:17 AM CDT) Only the most recent of3 resultswithin the time period is included. PLATELET COUNT 201 140 - 440 thou/cu mm 10/24/2023 7:01 AM CDT [facility] MPV 9.9 6.5 - 11.0 fL 10/24/2023 7:01 AM CDT [facility] Blood BLOOD SPECIMEN / Unknown Venipuncture / Unknown 10/24/2023 6:17 AM CDT 10/24/2023 6:47 AM CDT Ga Juan MD HEMATOLOGY Performing Organization Address City/[facility] Co de Phone Number [facility] [address] [place] [address], [place] * HEMOGLOBIN (10/24/2023 6:17 AM CDT) Only the most recent of3 resultswithin the time period is included. Pathologist [facility] HEMOGLOBIN 12.5 12.0 - 16.0 g/dL 10/24/2023 7:01 AM CDT [facility] MCV 88 80 - 100 fL 10/24/2023 7:01 AM CDT [facility] Blood BLOOD SPECIMEN / Unknown Venipuncture / Unknown 10/24/2023 6:17 AM CDT 10/24/2023 6:47 AM CDT Ga Juan MD HEMATOLOGY Performing Organization Address City/[facility]/ZIP Co de Phone Number [facility] [address] [place] [address], [place] * SODIUM (10/24/2023 6:17 AM CDT) Only the most recent of3 resultswithin the time period is included. SODIUM 143 136 - 145 mmol/L 10/24/2023 7:21 AM CDT [facility] Blood BLOOD SPECIMEN / Unknown Venipuncture / Unknown 10/24/2023 6:17 AM CDT 10/24/2023 6:47 AM CDT Ga Juan MD CHEMISTRY Performing Organization Address City/[facility] Co de Phone Number [facility] [address] [place] [address], * POTASSIUM (10/24/2023 6:17 AM CDT) Only the most recent of3 resultswithin the time period is included. POTASSIUM 4.1 3.5 - 5.1 mmol/L 10/24/2023 7:21 AM CDT [facility] Blood BLOOD SPECIMEN / Unknown Venipuncture / Unknown 10/24/2023 6:17 AM CDT 10/24/2023 6:47 AM CDT Ga Juan MD CHEMISTRY Performing Organization Address [facility] Phone Number [facility] [address] [place] [address], [place] * CREATININE (10/24/2023 6:17 AM CDT) Only the most recent of2 resultswithin the time period is included. eGFR >90 >90 mL/min/1.7 3m2 10/24/2023 7:21 AM CDT [facility] Comment:As of 2021, eG FR is calculated by the CKD-EPI creatinine equation without race adjustment. ??eGFR can be influenced by muscle mass, exercise, and diet. ??The reported eGFR is an estimation only and is only applicable if the renal function is stable. CREATININE 0.56 0.50 - 0.90 mg/dL 10/24/2023 7:21 AM CDT [facility] Blood BLOOD SPECIMEN / Unknown Venipuncture / Unknown 10/24/2023 6:17 AM CDT 10/24/2023 6:47 AM CDT Ga Juan MD CHEMISTRY [facility] [address] [place] [address], * SCAN CORRESP-EKG RESULTS (10/23/2023 9:14 AM [...] For Patients: ??As a result of the Century Cures Act, [...] result of the Century Cures Act, medical imagingexams and procedure reports [...] @ 10/23/2023 7:38:07 AM (Electronically Signed) Juanis Jha [place] * (ABNORMAL) Basic Metabolic Panel (10/23/2023 5:16 AM CDT) Only the most recent of2 resultswithin the time period is included. SODIUM 141 136 - 145 mmol/L 10/23/2023 6:46 AM CDT [facility] POTASSIUM 4.1 3.5 - 5.1 mmol/L 10/23/2023 6:46 AM CDT [facility] CHLORIDE 107 98 - 107 mmol/L 10/23/2023 6:46 AM CDT [facility] CO2,TOTAL 25 22 - 29 mmol/L 10/23/2023 6:46 AM CDT [facility] ANION GAP 9 5 - 18 10/23/2023 6:46 AM CDT [facility] GLUCOSE 122(H) 70 - 99 mg/dL 10/23/2023 6:46 AM CDT [facility] CALCIUM 8.8 8.8 - 10.2 mg/dL 10/23/2023 6:46 AM CDT [facility] BUN 11 8 - 23 mg/dL 10/23/2023 6:46 AM CDT [facility] CREATININE 0.52 0.50 - 0.90 mg/dL 10/23/2023 6:46 AM CDT [facility] BUN/CREAT RATIO 21(H) 10 - 20 6:46 AM CDT [facility] eGFR >90 >90 mL/min/1.7 3m2 10/23/2023 6:46 AM T [facility] Comment:As of 2021, eG FR is calculated by the CKD-EPI creatinine equation without race adjustment. ??eGFR can be influenced by muscle mass, exercise, and diet. ??The reported eGFR is an estimation only and is only applicable if the renal function is stable. Blood BLOOD SPECIMEN / Unknown Venipuncture / Unknown 10/23/2023 5:16 AM CDT 10/23/2023 6:10 AM CDT Juanis CARD [facility] [address] [place] [address], * SCAN-CARDIAC STRIP (10/22/2023 8:07 PM CDT) Scanner OTHER * HCHG ANES US GUIDE FOR VASC ACCESS, HCHG TUBING PR1, HCHG TUBING PR20, HCHG DRSG PR1, HCHG DRSG PR5, HCHG KIT PR5, HCHG KIT PR20 (10/22/2023 2:30 PM CDT) Aj Morris MD - 10/22/2023 2:30 PM CDT Aj [...] (10/22/2023 2:21 PM CDT) Narrative Sonia Martinez PULLBOAT ENGINEER Student - 10/22/2023 2:21 PM CDT Sonia Martinez, PULLBOAT ENGINEER Student ? 10/22/2023 ??2:21 PM Procedure: ETT [...] A Rh Positive 10/22/2023 6:07 AM CDT [facility] BLOOD BANK ANTIBODY SCREEN Negative Negative 10/22/2023 6:07 AM CDT [facility] BLOOD BANK SPECIMEN EXPIRATION DATE/TIME 10/25/23 23:59 10/22/2023 6:07 AM CDT [facility] BLOOD BANK Blood BLOOD SPECIMEN / Unknown Venipuncture / Unknown 10/22/2023 4:52 AM CDT 10/22/2023 5:19 AM CDT Candice Ray NP BLOOD BANK [facility] BLOOD BANK [address] [place] [address], * CBC W PLT NO DIFF (10/22/2023 4:52 AM CDT) WHITE BLOOD COUNT 6.4 4.5 - 11.0 thou/cu mm 10/22/2023 5:24 AM CDT [facility] RED BLOOD COUNT 4.70 4.00 - 5.20 mil/cu mm 10/22/2023 5:24 AM CDT [facility] HEMOGLOBIN 13.2 12.0 - 16.0 g/dL 10/22/2023 5:24 AM CDT [facility] HEMATOCRIT 41.2 33.0 - 51.0 % 10/22/2023 5:24 AM CDT [facility] MCV 88 80 - 100 fL 10/22/2023 5:24 AM CDT [facility] MCH 28.1 26.0 - 34.0 pg 10/22/2023 5:24 AM CDT [facility] MCHC 32.0 32.0 - 36.0 g/dL 10/22/2023 5:24 AM CDT [facility] RDW 12.1 11.5 - 15.5 % 10/22/2023 5:24 AM CDT [facility] PLATELET COUNT 214 140 - 440 thou/cu mm 10/22/2023 5:24 AM CDT [facility] MPV 9.9 6.5 - 11.0 fL 10/22/2023 5:24 AM CDT [facility] NRBC 0.0 % 10/22/2023 5:24 AM CDT [facility] ABS NRBC 0.0 thou /cu mm 10/22/2023 5:24 AM CDT [facility] Blood BLOOD SPECIMEN / Unknown Venipuncture / Unknown 10/22/2023 4:52 AM CDT 10/22/2023 5:19 AM CDT Gianfranco Gil MD HEMATOLOGY Performing Organization Address [facility] Co de Phone Number [facility] [address] [place] [address], * PROTIME-INR (10/22/2023 4:52 AM CDT) INR 1.1 <1.3 10/22/2023 5:31 AM CDT [facility] PROTIME 12.2 10.3 - 12.3 sec 10/22/2023 5:31 AM CDT [facility] Blood BLOOD SPECIMEN / Unknown Venipuncture / Unknown 10/22/2023 4:52 AM CDT 10/22/2023 5:19 AM CDT Narrative [facility] - 10/22/2023 5:31 AM CDT ?Therapeutic [...] Gianfranco Gil MD HEMATOLOGY Performing Organization Address [facility] Co de Phone Number [facility] [address] [place] [address], * SCAN-CARDIAC STRIP (10/21/2023 10:09 AM CDT) Scanner OTHER * SCAN-CARDIAC STRIP (10/21/2023 12:00 AM CDT) Narrative 10/21/2023 12:00 AM CDT Ordered by an unspecified provider. Other Clinical Staff OTHER * SCAN-CARDIAC STRIP (10/20/2023 8:37 AM CDT) Scanner OTHER * WHITE BLOOD COUNT (10/20/2023 7:00 AM CDT) WHITE BLOOD COUNT 6.2 4.5 - 11.0 thou/cu mm 10/20/2023 8:44 AM CDT [facility] NRBC 0.0 % 10/20/2023 8:44 AM CDT [facility] ABS NRBC 0.0 thou /cu mm 10/20/2023 8:44 AM CDT [facility] Blood BLOOD SPECIMEN / Unknown Venipuncture / Unknown 10/20/2023 7:00 AM CDT 10/20/2023 8:41 AM CDT Freddy Simmons MD HEMATOLOGY Performing Organization Address City/[facility]/ZIP Co de Phone Number [facility] SENDOUT INTER[place] ZIP [address] [place] [address] * MAGNESIUM (10/20/2023 7:00 AM CDT) MAGNESIUM 2.1 1.6 - 2.4 mg/dL 10/20/2023 9:02 AM CDT [facility] Blood BLOOD SPECIMEN / Unknown Venipuncture / Unknown 10/20/2023 7:00 AM CDT 10/20/2023 8:41 AM CDT Freddy Simmons MD CHEMISTRY Performing Organization Address City/[facility]/ZIP Co de Phone Number [facility] S[address] ZIP [address] [place] [address] * SCAN-CARDIAC STRIP (10/20/2023 2:46 AM CDT) Scanner OTHER * SCAN-CARDIAC STRIP (10/20/2023 12:00 AM CDT) Narrative 10/20/2023 12:00 AM CDT Ordered by an unspecified provider. Other Clinical Staff OTHER * CG HER2 BREAST (10/18/2023 10:12 AM CDT) Tissue (Left Breast) 10/18/2023 10:12 AM CDT 10/29/2023 10:31 AM CDT Rafael Angel MD LABORATORY Performing Organization Address [facility] Co de Phone Number [facility] [address] [place] [address], * CYTOGENETICS MALIGNANT TISSUE STUDIES (10/18/2023 10:12 AM CDT) RFR Breast cancer 11/01/2023 1:49 PM CDT [facility] TEST & RESULT SUMMARY HER2 FISH Breast: See pathology report [id number]. See comments. 11/01/2023 1:49 PM CDT [facility] _ 11/01/2023 1:49 PM CDT [facility] COMMENTS This record is used as an internal laboratory test designed for workflow purposes only. 11/01/2023 1:49 PM CDT [facility] Peer39[facility] SOURCE Left Breast (Paraffin Slides A8 2UNS) [id number] 11/01/2023 1:49 PM CDT [facility] Tissue (Left Breast) 10/18/2023 10:12 AM CDT 10/29/2023 10:31 AM CDT Rafael Angel MD LABORATORY Performing Organization Address City/[facility]/ZIP Co de Phone Number [facility] [employer] [address] [place] [address], * PATH TISSUE EXAM (10/18/2023 10:12 AM CDT) Only the most recent of2 resultswithin the time period is included. Case Report Pathology Report ?Case: [id number] ? Authorizing Provider: ??Rafael Angel MD ? Collected: ? 10/18/2023 1012 ? Ordering Location: ? [facility] ?Received: ?10/18/2023 1022 ? Pathologist: ? Didi Mullins MD ? Specimen: ?Left Breast, Short stitch superior, long stitch lateral, fresh for margins ? 11/01/2023 2:27 PM CDT [facility] ENTRAL LABORATORY Amendment 10/29/2023 - Amendment issued to incorporate ancillary studies. 11/01/2023 - Amendment issued to incorporate ancillary HER2 FISH studies. 11/01/2023 2:27 PM CDT [facility] EN[facility]AL LABORAT[facility] Final Diagnosis A) LEFT BREAST, MASTECTOMY: 1. Invasive ductal carcinoma, Rosalia grade II ?a. Size 1.4 mm 2. Extensive ductal carcinoma in situ (DCIS), nuclear grade 3, Comedo, cribriform and solid types ?a. Size: 55 mm ?b. Core biopsy site is associated with tumor 3. Margins: ?a. Invasive carcinoma is at least 10 mm from the surgical margins ?b. DCIS is 2 mm from the posterior margin 4. Breast Ancillary Testing: ?a. Hormone Receptors: ?Estrogen receptor: Negative ?Progesterone receptor: Negative ?b. HER2 by IHC: Equivocal (2+ by manual morphometry) ?c. HER2 by FISH: Negative ?HER2/CEP17 ratio: 1.09 ?HER2 signals/cell: 2.36 ?CEP17 signals/cell: 2.16 5. Atypical lobular hyperplasia (ALH) 6. Benign nipple 11/01/2023 2:27 PM CDT [facility] EN[facility]AL LABORAT[facility] Amendment electronically signed by Grecia Mesa MD on 11/01/2023 at 2:27 PM Amendment electronically signed by Gricelda Salas MD on 10/29/2023 at 10:33 AM Comment For synoptic staging the invasive tumor size is rounded to 2 mm. 11/01/2023 2:27 PM CDT [facility] Clinical Information [id number] Left breast DCIS, gr 3, comedo/cribriform and solid, with ALH. Associated with calcifications spanning 7 mm. ER negative. 11/01/2023 2:27 PM CDT [facility] ENTRAL LABORATORY Gross Description A) Received fresh, labeled with the patient's name and left breast, short stitch superior, long stitch lateral, is a 287 gram, 21.0 (M-L) x 15.0 (S-I) x 5.0 (A-P) cm oriented left breast mastectomy specimen without attached axillary contents. There is an attached 19.0 x 5.0 cm portion of skin with a 1.0 x 1.0 x 1.0 cm everted nipple and 3.0 cm surrounding areola. The skin surface displays a 0.4 x 0.4 cm mace-brown macule, located at 5:00, 4.5 cm from the nipple and 0.9 cm from the nearest skin margin. A short stitch is superior. A long stitch is lateral. The specimen is inked: Anterior-superior : Blue Anterior-inferior : Red Posterior: Black The specimen is serially sectioned from medial to lateral to reveal a 5.5 (ML) x 5.0(SI) x 1.6(AP) cm mace-white gritty multicystic patches of lesion, located at 3:00, 2.0 cm from the nipple. The lesion is 1.5 cm from anterior-superior margin, 0.5 cm from anterior-inferior margin and 0.2 cm from the posterior margin. The biopsy cavity and a butterfly clip is identified. The remaining cut surfaces consist of 90% yellow, lobulated adipose tissue and 10% fibrous tissue. No lymph nodes are identified grossly. Nuclear Security Officer sections are submitted: 1-5. Lesion in greatest dimension submitting from medial to lateral (green ink is inferior edge) 6-8. Lesion in second greatest dimension submitting from superior to inferior: Posterior margin in 7, anterior-inferior margin including biopsy cavity in 8 (green ink is inferior) 9. Tissue immediately medial to 1 10. Tissue immediately lateral to 5 including posterior margin 11. Tissue immediately superior to 6 including anterior-superior margin 12. Tissue immediately inferior to 8 including posterior margin and anterior-inferior margin 13. Upper outer quadrant 14. Lower outer quadrant 15. Upper inner quadrant 16. Lower inner quadrant 17. Nipple, nipple bed and entire macule Time removed from patient: 1012 Time placed in formalin: 1042 Date removed and placed in formalin: 10/18/2023 Cold ischemic time < 60 minutes. The specimen was fixed in formalin for a minimum of 6 hours and not longer than 72 hours. TTP 10/18/2023 Re-gross part A: 18. Tissue with lesion lateral from 7, superior-lateral from 8 including anterior-inferior margin (green ink is inferior edge) 19-20. Composite slice lateral to cassette 8 including anterior-inferior margin (green ink is inferior edge) 21-22. Composite slice medial to cassette 8 including anterior-inferior margin in 21 (green ink is inferior edge) Note: Tissue in 18 is thinned from 3 or 4 Tissue in 19 is superior from 20 Tissue in 21 is superior from 22 TTP 10/24/2023 11/01/2023 2:27 PM T [facility] Intraoperative Consultation A) LEFT BREAST, MASTECTOMY, INTRAOPERATIVE CONSULTATION (Gross Evaluation Only): 1. Likely DCIS grossly identified and is larger than reported on prior imaging; a distinct tumor mass is not appreciated 2. Biopsy site change is identified grossly 3. Margins are grossly negative by 2 mm (the closest margin is posterior) 4. The mastectomy specimen is 287 grams Shaun Haley MD, 10/18/2023 10:43 AM ??Intraoperative consultation, which may have included frozen section preparation, gross specimen examination, and/or cytology touch imprints/smears, was performed by a pathologist during the surgical procedure. ??This testing was performed at: [address] [address] 11/01/2023 2:27 PM T [facility] Microscopic Description The final diagnosis is based on microscopic examination of appropriate sections of all specimens. CKAE1/AE3 is performed on block A8 and is positive in invasive tumor. 11/01/2023 2:27 PM [facility] Cytogenetics Summary Cytogenetic testing has been ordered and will be reported separately. 11/01/2023 2:27 PM [facility] SYNOPTIC REPORTING INVASIVE CARCINOMA OF THE BREAST: Resection INVASIVE CARCINOMA OF THE BREAST: RESECTION - All Specimens 8th Edition - Protocol posted: 03/07/2023 SPECIMEN ?? Procedure: ?Total mastectomy ?? Specimen Laterality: ?Left TUMOR ?? Tumor Site: ?Clock position ?? : ?3 o'clock Tumor Site: ?Distance from nipple (Centimeters): 7 cm Histologic Type: ?Invasive carcinoma of no special type (ductal) Histologic Grade ([place] Histologic Score): ? Glandular (Acinar) / Tubular Differentiation: ?Score 3 ?? Nuclear Pleomorphism: ?Score 3 ?? Mitotic Rate: ?Score 1 ?? Overall Grade: ?Grade 2 (scores of 6 or 7) Tumor Size: ?Greatest dimension of largest invasive focus (Millimeters): 2 mm Tumor Focality: ?Single focus of invasive carcinoma Ductal Carcinoma In Situ (DCIS): ?Present ?? : ?Positive for extensive intraductal component (EIC) ?? Size (Extent) of DCIS: ?Estimated size (extent) of DCIS is at least (Millimeters): 55 mm ?? Architectural Patterns: ?Comedo ?? Architectural Patterns: ?Cribriform ?? Architectural Patterns: ?Solid ?? Nuclear Grade: ?Grade III (high) ?? Necrosis: ?Present, central (expansive comedo necrosis) Lobular Carcinoma In Situ (LCIS): ?Not identified Lymphatic and / or Vascular Invasion: ?Not identified Dermal Lymphatic and / or Vascular Invasion: ?Not identified Microcalcificatio ns: ?Present in DCIS Microcalcificatio ns: ?Present in non-neoplastic tissue Treatment Effect in the Breast: ?No known presurgical therapy MARGINS Margin Status for Invasive Carcinoma: ?All margins negative for invasive carcinoma ?? Distance from Invasive Carcinoma to Closest Margin: ?Greater than: 10 mm ?? Closest Margin(s) to Invasive Carcinoma: ?All margins Margin Status for DCIS: ?All margins negative for DCIS ?? Distance from DCIS to Closest Margin: ?2 mm ?? Closest Margin(s) to DCIS: ?Posterior REGIONAL LYMPH NODES Regional Lymph Node Status: ?Not applicable (no regional lymph nodes submitted or found) pTNM CLASSIFICATION (AJCC 8th Edition) ?? Reporting of pT, pN, and (when applicable) pM categories is based on information available to the pathologist at the time the report is issued. As per the AJCC (Chapter 1, 8th Ed.) it is the managing physician? s responsibility to establish the final pathologic stage based upon all pertinent information, including but potentially not limited to this pathology report. pT Category: ?pT1a pN Category: ?pN not assigned (no nodes submitted or found) Comment(s): ?Block for possible future ancillary testing: A8 (biopsy site present) Breast Biomarker Reporting Template BREAST BIOMARKER REPORTING TEMPLATE - A Protocol posted: 03/07/2023 ?? Test(s) Performed: ? Estrogen Receptor (ER) Status: ?Negative (less than 1%) ? : ?Internal control cells present and stain as expected ? Test Type: ?Laboratory-deve loped test ? Primary Antibody: ?SP1 ?? Test(s) Performed: ? Progesterone Receptor (PgR) Status: ?Negative (less than 1%) ? : ?Internal control cells present and stain as expected ? Test Type: ?Laboratory-deve loped test ? Primary Antibody: ?16 ?? Test(s) Performed: ? HER2 by Immunohistochemis try: ?Equivocal (Score 2+) ? Percentage of Cells with Uniform Intense Complete Membrane Staining: ?2 % ? Test Type: ?Laboratory-deve loped test ? Primary Antibody: ?4B5 ?? Test(s) Performed: ? HER2 by in situ Hybridization: ?Negative (not amplified) ? Number of Observers: ?2 ? Number of Invasive Tumor Cells Counted: ?25 cells ? Method: ?Dual probe assay ? Average Number of HER2 Signals per Cell: ?2.36 ? Average Number of CEP17 Signals per Cell: ?2.16 ? HER2 / CEP17 Ratio: ?1.09 ? Aneusomy: ?Not identified ? Heterogeneous Signals: ?Not identified ? Test Type: ?Food and Drug Administration (FDA) cleared (test / vendor): [employer]ion HER2/Kalie ?? Cold Ischemia and Fixation Times: ?Meet requirements specified in latest version of the ASCO / CAP Guidelines ?? Testing Performed on Block Number(s): ?A8 METHODS ?? Fixative: ?Formalin ?? Image Analysis: ?Performed ? Method: ?Aperio morphometric analysis ? Biomarkers Scored by Image Analysis: ?ER ? Biomarkers Scored by Image Analysis: ?PgR ?? Comment(s): ?The FDA approved [employer] PathVysion DNA Probe Kit was developed and its performance characteristics determined by [employer]. This test incorporates minor modifications to protocol and validated by the [facility] to yield equivocal or superior performance. This FISH test uses a multiplex probe stain procedure. 11/01/2023 2:27 PM CDT [facility] Additional Information Interpreted at [facility] - [address], [place] [address] Immunohistochemis try controls were reviewed and approved by the pathologist during this examination. Patients with breast cancers that are HER2 IHC 3+ or IHC 2+/YVON amplified may be eligible for several therapies that disrupt HER2 signaling pathways. Invasive breast cancers that test 'HER2-negative' (IHC 0, 1+ or 2+/YVON not-amplified) are more specifically considered 'HER2-negative for protein overexpression/ge ne amplification' since non-overexpressed levels of the HER2 protein may be present in these cases. Patients with breast cancers that are HER2 IHC 1+ or IHC 2+/YVON not amplified may be eligible for a treatment that targets non-amplified/non -overexpressed levels of HER2 expression for cytotoxic drug delivery (IHC 0 results do not result in eligibility currently). 11/01/2023 2:27 PM CDT [facility] Tissue (Left Breast) 10/18/2023 10:12 AM CDT 10/18/2023 10:22 AM CDT Rafael Angel MD PATHOLOGY/CYTOLOGY [facility] [address] [place] [address], [facility] SENDOUT INTERNAL ZIP [address] [place] [address] * Supraglottic (10/18/2023 9:34 AM CDT) Narrative [...] - 100 mg/dL 10/18/2023 7:30 AM CDT [facility] Blood BLOOD SPECIMEN / Unknown 10/18/2023 7:26 AM CDT 10/18/2023 7:30 AM CDT Rafael Angel MD CHEMISTRY [facility] SENDOUT [place] Z[address] [address] [address] [place] [address] * SCAN-CARDIAC STRIP (10/18/2023 12:00 AM CDT) [...] Narrative 09/26/2023 10:26 AM CDT ECHOCARDIOGRAM FREDI GONZALESMakaylaVOLODYMYR ?Accession#: ?? [id number] : ?1950 73 years Study Date: ?? 09/26/2023 9:04:12 AM Gender: F ? BP: ? 130/78 mmHg Height: 175.30 cm ? BSA: ?1.71 m? ? ? Weight: 58.50 kg ?Tech: ? MJJ ?Referring MD: MADDI PHIPPS Site: ? [facility] Reading Location: MOBILE-OP Patient Location: Outpatient. [...] . This study was interpreted by an [facility] accredited facility. CC: HIM (med [facility]) [facility]. ??Final ?? Procedure Note Bryson Hart MD - 09/26/2023 ECHOCARDIOGRAM FREDI JETT : 1950 73 years Study Date: 09/26/2023 9:04:12 AM Gender: F BP: 130/78 mmHg Height: 175.30 cm BSA: 1.71 m? ? ? Weight: 58.50 kg Tech: SAL Referring MD: MADDI PHIPPS Site: [facility] Reading Location: MOBILE-OP Patient Location: [...] interpreted by an [facility] accredited facility. CC: HIM (med records) [facility]. Final Maddi Phipps MD ECHO ORD * [...] POST-BIOPSY MAMMOGRAM CLIP PLACEMENT 09/12/2023 PLEASE SEE [id number] FOR REPORT OF LEFT BREAST STEREOTACTIC BIOPSY REPORT OF SAME DAY. ?? Sandi Abdullahi MD MAMMO * XR BIOPSY BREAST NEEDLE W JOSHUA W STEREO GUIDE LT (09/12/2023 2:37 PM CDT) Anatomical Region Laterality Modality Breast Left Left Mammography, Oth er Addenda Addendum by Dolores Hung, PATRICIA on 09/19/2023 11:17 AM CDT Pathologic findings: [...] discussed with Parris, breast nurse navigator for [facility]. ??She will contact the patient and arrange for surgical consultation. Dolores Hung, MSN, RN, DRY CANS BACK TENDER [email or web address] Impressions 09/18/2023 3:56 PM CDT ??Stereotactic vacuum-assisted [...] using a dedicated stereotactic biopsy unit. ??Straight supervisor film processing and pre- and post-biopsy stereo pair spot [...] the patient and a consent was signed. ??[place] Protocol was followed including pre-procedure verification that [...] ??On target. Sandi Abdullahi MD MAMMO * XR MAMMO ANN UNI SCREEN LEFT (02/25/2019 11:36 AM PHARMACY OPERATIONS SPECIALIST) Anatomical Region Laterality Modality BREASTS, Breast Left Left Mammography Impressions 02/25/2019 2:04 PM PHARMACY OPERATIONS SPECIALIST ??There is no radiographic evidence for malignancy. ??Recommend annual mammograms. A lay language report of this examination will be provided to the patient. MAMMOGRAM ASSESSMENT: ??ACR 1 Negative Narrative 02/25/2019 2:04 PM PHARMACY OPERATIONS SPECIALIST XR MAMMO ANN UNI SCREEN LEFT [[id number]] CLINICAL HISTORY: ??This is an asymptomatic 68 y.o. patient. INDICATION FOR EXAM: Mammogram Screening. TECHNIQUE: CC & MLO views were obtained. ??This digital study was evaluated with the assistance of Computer-Aided Detection. Breast Tomosynthesis was used in interpretation. COMPARISON FILM: Yes 02/22/18 [facility] 01/10/17 [facility] FINDINGS: ??Mammographically, the breast tissue is extremely dense. ??This may lower the sensitivity of mammography. ??There are no dominant masses, suspicious micro calcifications or areas of architectural distortion. Sandi Abdullahi MD MAMMO from Last 3 Months or Most Recently Relevant to Health Maintenance Advance Directives * Full Code (Latest Code Status on File) Date Activated Date Inactivated Comments 10/23/2023 4:21 PM 10/25/2023 8:12 PM Question Answer Comments Code Status Discussion: [...] Comments Code Status Discussion: Discussed Care Teams Log Haul Operator Relationship Specialty Start Date End Date Sandi Abdullahi MD [address] [place] [address] PCP - General Family Practice 02/08/17 Amber Foy RN [address] [facility] [address] [place], [place] [id number] Nurse Navigator - Oncology Registered Nurse 09/21/23 Rafael Angel MD [address] [facility] [address] [place] [address] Surgery - Oncology 09/21/23 [facility] [address] [address] [id number] 10/25/23
--- NOTE | 2023-11-19 11:00 | CRLHL7_ITS ---
For Patients: As a result of the Century Cures Act, medical imaging exams and procedure reports are released immediately into your electronic medical record. You may view this report before your referring provider. If you have questions, please contact your health care provider. INDICATION: Subdural hygroma TECHNIQUE: Noncontrast axial CT of the head is submitted. Compared to prior study from October 19, 2023. FINDINGS: Since the prior study there has been a right-sided craniotomy. Mild dural thickening deep to the craniotomy likely postoperative change. The prior noted right-sided subdural hygroma appears resolved. No evidence of new hemorrhage. Mild diffuse cerebral atrophy. The ventricles, sulci and gyri are of normal size, shape and contour for age and degree of atrophy. Midline structures are centrally located. No convincing evidence of suspicious intra- or extra-axial fluid collections. Mild patchy regions of decreased attenuation within the periventricular and subcortical white matter of both cerebral hemispheres. IMPRESSION: 1. No radiographic evidence of acute intracranial abnormalities. 2. Interval right-sided craniotomy with mild dural thickening deep to the craniotomy defect compatible with postoperative change. 3. Interval resolution of prior noted right-sided subdural hygroma/hematoma. 4. Mild cerebral atrophy. 5. Mild supratentorial white matter changes that are non-specific, but statistically most likely related to chronic small vessel ischemic disease. Please note that all CT scans at this facility use dose modulation, iterative reconstruction, and/or weight-based dosing when appropriate to reduce radiation dose to as low as reasonably achievable. Dictated by Duglas Leahy MD @ 11/19/2023 2:34:47 PM (Electronically Signed)
== END 2023-11-19 10:45 | disposition home or self-care (01) ==
LOC: CT 10:44
PROVIDERS: PCP Family Medicine; Visit Provider Nurse Practitioner Family
DX: G96.08 Other cranial cerebrospinal fluid leak (principal); G31.9 Degenerative disease of nervous system, unspecified
CPT/HCPCS: 70450

== ENCOUNTER 2024-01-14 09:57 | Outpatient (CLI) | payer MEDICARE, BC, SELFPAY ==
--- NOTE | 2024-01-14 10:00 | CRLHL7_ITS ---
For Patients: As a result of the Century Cures Act, medical imaging exams and procedure reports are released immediately into your electronic medical record. You may view this report before your referring provider. If you have questions, please contact your health care provider. CLINICAL HISTORY: : History of breast cancer, status post bilateral mastectomy COMPARISON: None TECHNIQUE: Real-time ultrasound imaging of left axilla. FINDINGS: Mildly prominent left axillary lymph node is present measuring 1.3 x 0.7 x 1.1 cm with the cortex measuring 2.7 millimeters. Smaller left axillary lymph node is present measuring 0.9 x 0.3 x 0.7 cm with the cortex measuring 1.6 millimeters. IMPRESSION: Mildly prominent left axillary lymph node measuring 1.3 cm with slight cortical thickening. Patient recently had the flu COVID vaccine and this is likely a reactive lymph node although biopsy should be considered. RECOMMENDATIONS: Ultrasound-guided core needle biopsy of the slightly enlarged left axillary lymph node should be considered. Results and recommendations were discussed with the patient at the time of the exam. Dictated by Poncho Garay MD @ 01/14/2024 12:55:13 PM (Electronically Signed)
== END 2024-01-14 09:58 | disposition home or self-care (01) ==
PROVIDERS: PCP Family Medicine; Visit Provider Internal Medicine Hematology & Oncology
DX: D05.12 Intraductal carcinoma in situ of left breast (principal); R59.0 Localized enlarged lymph nodes; Z15.09 Genetic susceptibility to other malignant neoplasm
CPT/HCPCS: 76882

== ENCOUNTER 2024-01-21 11:07 | Outpatient (CLI) | payer MEDICARE, BC, SELFPAY ==
--- OUTSIDE RECORDS SUMMARY | 2024-01-21 11:11 | XMS_ITS | Clinical Summary ---
Author Organization [facility] Address [place], [place] [address] Care Team Providers Care Superintendent [employer] Name Role Phone Sandi Abdullahi MD Primary Care Provider + Amber Foy RN Unavailable [phone] Rafael Angel MD Unavailable [phone] Allergies Active Allergy Reactions Criticality Noted Date [...] Start Date End Date Status Post Mastectomy BraIndications:Doris gnbruno neoplasm of left breast in female, estrogen [...] the tongue once daily. Active vit-min eye [id number] (PreserVision AREDS) capsule Take 1 Capsule by mouth two times daily. Active acetaminophen (TYLENOL EXTRA STRGTH) 500 mg tabletIndications:M alignant neoplasm of left breast in female, estrogen receptor negative (HC) Take 2 Tablets (1,000 mg) by mouth every 6 hours if needed for Pain. Max acetaminophen dose: 4000mg in 24 hrs. 10/18/2023 Active WalkerIndications:S /P craniotomy,Chronic subdural hematoma (HC) Walker with front wheels for home use. 1 Each 10/24/2023 Active polyethylene glycoL (MIRALAX) 17 gram/scoop powderIndications:C onstipation, unspecified constipation type Take 1 scoop (17 g) by mouth or nasogastric tube once daily if needed for Constipation. 510 g 10/25/2023 Active sennosides-docusate (SENOKOT S) (8.6-50 mg) tabletIndications:C onstipation, unspecified constipation type Take 1-4 Tablets by mouth 2 times daily if needed for Constipation. 40 Tablet 10/25/2023 Active hydrocortisone 1 % cream Apply 1 Strip topically to affected area(s) 4 times daily if needed for Itching. 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 See detailed letter dated 12/17/23 from cancer genetic counselor. 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 Malignant neoplasm of left b reast in female, estrogen receptor negative 09/24/2023 Cancer Staging:Clinical stage from 09/24/2023:Stage 0(cTis (DCIS), cN0, cM0, ER-, CT: Not Assessed, HER2: Not Assessed) - Signed by Rafael Angel MD on 09/24/2023 Pathologic stage from 10/18/2023:Stage Unknown(pT1a, pNX, cM0, G2, ER-, CT-, HER2: Equivocal) - Signed by Jessica Minaya PA on 10/31/2023 Encounters Date Type Department Care Team Description 12/18/2023 Orders Only [facility] [address] [place] [address] Rafael Angel MD <No scans attached> 12/17/2023 11:40 AM CDT Office Visit [facility] [address] [place] [address] Rafael Angel MD Follow Up 12/17/2023 8:00 AM CDT Phone Office Visit [facility] [address] [place] [address] Anh Orantes, MS, CGC Counseling (Genetic testing follow-up CHEK2 positive) 12/17/2023 Travel 12/13/2023 Telephone [facility] [address] [facility] [address] [place] [address] Anh Orantes, MS, CGC Results (Cancer genetic testing) 12/13/2023 Telephone [facility] [address] [facility] [address] [place] [address] Sourav Alegre MD Questions 12/06/2023 12:20 PM CDT Orders Only [facility] [address] [place] [address] Lab 12/06/2023 11:00 AM CDT Office Visit [facility] [address] [place] [address] Rafael Clay MD Consult 12/06/2023 Travel 12/04/2023 Telephone [facility] [address] [place] [address] Claudia Martines Cancer Genetics 12/03/2023 11:00 AM CDT Phone Office Visit [facility] [address] [place] [address] Anh Orantes MS, CGC Counseling (Cancer genetic counseling) 12/03/2023 Travel 11/30/2023 11:30 AM CDT Phone Office Visit [facility] [address] [phone] Melva Melendrez NP Surgical Followup 11/28/[address] [place] [phone] [facility] Cancer Referral (Malignant neoplasm of left breast in female) 11/23/2023 10:45 AM CDT Home Care Visit [address] [phone] Fritz Riggs, OT OT - DISCIPLINE DISCHARGE 11/23/2023 10:00 AM CDT Home Care Visit [address] [phone] Poncho Simons, PT PT - OASIS DISCHARGE 11/23/2023 Travel 11/22/2023 3:00 PM CDT Home Care Visit [address] [phone] Milagros Og, DICK SN - DISCIPLINE DISCHARGE 11/21/2023 11:20 AM CDT Office Visit [facility] [address] [facility] [address] [place] [phone] Rafael Angel MD Follow Up 11/20/2023 11:45 AM CDT Home Care Visit [facility] [address] [place] [phone] sAhok Vega, PUPPET MASTER PUPPET MASTER - DISCIPLINE DISCHARGE 11/20/2023 9:45 AM CDT Home Care Visit [address] [phone] Poncho Simons, PT PT - HOME VISIT 11/20/2023 Travel 11/19/2023 Orders Only [facility] Scanner 1 scan: (1-Ord) [facility], CT HEAD/BRAIN WO CON, 11/19/2023 11/19/2023 Telephone [facility] [address] [place] [address] Claudia Martines Cancer Genetics 11/16/2023 4:00 PM CDT Home Care Visit [facility] [address] [place] [phone] Milagros Og, RN SN - HOME VISIT 11/16/2023 2:00 PM CDT Home Care Visit [facility] [address] [place] [phone] Fritz Riggs, OT OT - HOME VISIT 11/16/2023 10:15 AM CDT Home Care Visit [place] [address] [place] [phone] Poncho Simons, PT PT - HOME VISIT 11/16/2023 Travel 11/14/2023 2:00 PM CDT Home Care Visit [facility] [address] [place] [phone] Ashok Vega, PUPPET MASTER PUPPET MASTER - INITIAL ASSESSMENT 11/13/2023 10:15 AM CDT Home Care Visit [place] [id number] [place] [phone] Poncho Simons, PT PT - HOME VISIT 11/13/2023 Travel 11/12/2023 2:00 PM CDT Nurse/Clinic Staff Only [facility] [address] [place] [phone] 11/12/2023 Oncology Nurse Navigator Task [facility] [address] [place] [address] Amber Foy RN 11/12/2023 Travel 11/12/2023 Telephone [facility] [address] [place] [address] Rafael Angel MD Questions 11/09/2023 10:15 AM CDT Home Care Visit [address] [place] [address] Poncho Simons, PT PT - HOME VISIT 11/09/2023 Travel 11/08/2023 1:00 PM CDT Home Care Visit [facility] [address] [place] [phone] Milagros Og, DICK SN - HOME VISIT 11/07/2023 4:00 PM CDT Home Care Visit [facility] [address] [place] [phone] Fritz Riggs OT OT - HOME VISIT 11/07/2023 10:50 AM CDT Office Visit [address] [place] [address] Rafael Angel MD Follow Up 11/07/2023 Travel 11/05/2023 1:30 PM CDT Office Visit [facility] [address] [phone] Melva Melendrez NP Post-op (s/p 10/22/23 RIGHT SIDED CRANIOTOMY FOR SUBDURAL HEMATOMA EVACUATION) 11/05/2023 10:00 AM CDT Home Care Visit [facility] [address] [place] [phone] Isi Small, PT PT - HOME VISIT 11/05/2023 Travel 11/02/2023 11:00 AM CDT Home Care Visit [facility] [address] [place] [phone] Isi Small, PT PT - HOME VISIT 11/01/2023 12:30 PM CDT Home Care Visit [facility] [address] [place] [phone] Milagros Og, DICK SN - HOME VISIT 11/01/2023 11:15 AM CDT Home Care Visit [address] [phone] Fritz Riggs OT OT - INITIAL ASSESSMENT 11/01/2023 Orders Only [facility] [address] [place] [address] Milagros Og RN <No scans attached> 10/31/2023 12:30 PM CDT - 10/31/2023 11:59 PM CDT Hospital Encounter [facility] [address] [facility] [address] [place] [address] Jessica Minaya PA Fluid collection at surgical site, initial encounter 10/31/2023 11:00 AM CDT Office Visit [facility] [address] [place] [phone] Jessica Minaya PA Post-op 10/31/2023 Travel 10/30/2023 Home Care Visit [facility] [address] [place] [address] Baylee Haines, RN CARE COORDINATION 10/29/2023 11:30 AM CDT Home Care Visit [facility] [address] [place] [phone] Isi Small, PT PT - INITIAL ASSESSMENT 10/29/2023 Travel 10/29/2023 Home Care Visit [facility] [address] [place] [phone] Baylee Haines, RN CARE COORDINATION 10/28/2023 9:30 AM CDT Home Care Visit [facility] [address] [place] [phone] Modesta Jones RN SN - OASIS START OF CARE 10/28/2023 Plan of Care Documentation [facility] [address] [place] [phone] 10/27/2023 Home Care Visit [facility] [address] [place] [phone] Baylee Haines, RN CARE COORDINATION 10/27/2023 Home Care Visit [facility] [address] [facility] [place] [address] Baylee Haines RN CARE COORDINATION 10/27/2023 Home Care Visit [facility] [address] [place] [address] Baylee Haines RN CARE COORDINATION 10/22/2023 1:42 PM CDT Anesthesia Event [facility] [address] [place] [address] Aj Erwin MD Nies, Sonia Schwab, AIR CONDITIONING MECHANIC Student 10/22/2023 11:12 AM CDT - 10/22/2023 2:24 PM CDT Surgery [facility] [address] [place] [address] Sourav Alegre MD RIGHT SIDED CRANIOTOMY FOR SUBDURAL HEMATOMA EVACUATION 10/21/2023 9:54 PM CDT - 10/25/2023 6:00 PM CDT Hospital Encounter [facility] [address] [place] [address] [facility] Of [place], MD Drake Arias, MD Altaf Wing, DO Yanet Cat, Toña Galvez MD S/P craniotomy (Primary Dx); Chronic subdural hematoma (HC); Constipation, unspecified constipation type; Midline shift of brain; Left hemiparesis (HC); Malignant neoplasm of left breast in female, estrogen receptor negative, unspecified site of breast (HC) Discharge Disposition: Home Health 10/20/2023 12:06 AM CDT - 10/21/2023 9:23 PM CDT Hospital Encounter [address] [address] [facility], Hospitalist Darius Simmons, MD Jake Perez, Marlys Quispe MD Midline shift of brain (Primary Dx); Malignant neoplasm of left breast in female, estrogen receptor negative (HC); Left hemiparesis (HC); Malignant neoplasm of left breast in female, estrogen receptor negative, unspecified site of breast (HC) Discharge Disposition: Hospice Medical Facility from Last 3 Months Family History Medical [...] file 10/20/2023 Food Insecurity Answer Date Recorded Do you worry your food will run out before you are able to buy more? 1 10/20/2023 Transportation Needs Answer Date Record ed Lack of Transportation (Medical) 1 10/20/2023 Housing Stability Answer Date Recorded What is your housing situation today? 1 10/20/2023 Sex and Gender Information Value Date Recorded Sex Assigned at Not on file Gender Identity Not on file Sexual Orientation Not on file Obstetrics History Last Filed Vital Signs Vital Sign Reading Time Taken Comments Blood Pressure 129/60 12/17/2023 11:49 AM CDT Pulse 70 12/17/2023 11:49 AM CDT Temperature 36.6 ??C (97.8 ??F) 12/17/2023 11:49 AM C DT Respiratory Rate 17 12/06/2023 11:44 AM CDT Oxygen Saturation 98% 12/06/2023 11:44 AM CDT Inhaled Oxygen Concentration - - Weight 58.2 kg (128 lb 4.8 oz) 12/17/2023 11:49 AM CDT Height 175.3 cm (5' 9) 12/17/2023 11:49 AM CDT Body Mass Index 18.95 12/17/2023 11:49 AM CDT Plan of Treatment Health Maintenance Due Date [...] 02/26/20 19, 02/22/2018, 02/28/2017, Additional history exists Influenza for age 65+ 11/25/2023 COVID-19 vaccine series (2023- season) 2024 12/13/2023, 12/28/2022, 08/01/2022, Additional history exists BMI (ht and wt on same day) for age 18+ 12/16/2024 12/17/2023, 12/06/2023, 11/07/2023, Additional history exists Medical Devices Implanted Type Area Business Development Assistant Device Identifier Shelf Expiration Date Model / Serial / Lot Dura Neuro 2x2in Duragen Plusnon-Sut - [id number] Implanted:Qty: 1 on 10/22/2023 by Sourav Alegre MD at [facility] Right: Cranium [facility] [employer] [facility] 07/23/2026 DP-1022 / / [id number] Screw Neuro 4mm Matrixneuro Slf Drill Titnm - [id number] Implanted:Qty: 8 on 10/22/2023 by Sourav Alegre MD at [facility] Right: Cranium J And J Depuy F [id number] 4.01 / / Ethel Hole Cover Neuro 17mm Synthes Low Pro Titnm Implanted:Qty: 1 on 10/22/2023 by Sourav Alegre MD at [facility] Right: Cranium [id number] / / Description:[place] Cover Neuro 17mm Synthes Low Pro Titnm [place] Cover Neuro 17mm Synthes Low Pro Shunt Implanted:Qty: 1 on 10/22/2023 by Sourav Alegre MD at [facility] Right: Cranium [id number] / / Description:Ethel Hole Cover Neuro 17mm Synthes Low Pro Shunt Procedures Procedure Name Priority Date/Time Associated Diagnosis Comments SCAN-CT INTERPRETATION 11/19/2023 12:00 AM CDT SCAN CORRESP-IMAGING 11/02/2023 1:47 PM CDT US ASPIRATION FLUID BREAST CENTER ASHLEY 10/31/2023 1:25 PM CDT Fluid collection at surgical site, initial encounter US BREAST UNILATERAL LEFT LIMITED ASHLEY 10/31/2023 12:52 PM CDT Fluid collection at [...] 10/23/2023 5:16 AM CDT SCAN-CARDIAC STRIP 10/22/2023 8: 07 PM CDT HCHG KIT PR20 Routine 10/22/2023 [...] 2:30 PM CDT ENDOTRACHEAL TUBE Routine 10/22/2023 2:2 1 PM CDT CRANIOTOMY SUBDURAL HEMATOMA 10/22/2023 1:13 PM CDT Subdural Hematoma Case Notes [facility]GYPatient [facility]; Not currently intubated TYPE & SCREEN Early AM 10/22/2023 4:52 AM CDT PROTIME-INR Early AM 10/22/2023 4:52 AM CDT CBC W PLT NO DIFF Early AM 10/22/2023 4:5 2 AM CDT BASIC METABOLIC PANEL Early AM 10/22/2023 4:51 AM CDT SCAN-CARDIAC STRIP 10/21/2023 10:09 AM CDT TYPE & SCREEN Today 10/21/2023 7:24 AM CDT POTASSIUM Early AM 10/21/2023 6:58 AM CDT SODIUM Early AM 10/21/2023 6:58 AM CDT SCAN-CARDIAC STRIP 10/21/2023 12:00 AM CDT XR MAMMO ANN UNI SCREEN LEFT Routine 02/25/2019 11:36 AM SHORTAGE WORKER Visit for screening mammogram from Last 3 Months or Most Recently Relevant to Health Maintenance Results * SCAN-CT INTERPRETATION (11/19/2023 12:00 AM CDT) Anatomical Region Laterality Modality Other Scanner OTHER * SCAN CORRESP-IMAGING (11/02/2023 1:47 PM CDT) Only the most recent of2 resultswithin the time period is included. Anatomical Region Laterality Modality Other Narrative 11/02/2023 1:47 PM CDT Ordered by an unspecified provider. Other Clinical Staff OTHER * [facility] (10/31/2023 1:25 PM CDT) Anatomical Region Laterality Modality BREASTS, Breast Left, Breast Right Ultrasound 10/31/2023 1:25 PM CDT Impressions 10/31/2023 3:18 PM CDT Status post ultrasound-guided puncture and aspiration of the left breast. Reference CPT Code: 17249, 59540 Narrative 10/31/2023 3:18 PM CDT For Patients: As a result of the Century Cures Act, medical imaging exams and procedure reports are released immediately into your electronic medical record. You may view this report before your referring provider. If you have questions, please contact your health care provider. EXAM: 1. PUNCTURE AND ASPIRATION OF THE LEFT BREAST 2. ULTRASOUND GUIDANCE LOCATION: [facility] DATE: 10/31/2023 INDICATION: Fluid Collection At Surgical [...] bloody fluid was aspirated. This was discarded. Jessica CARD US * US BREAST UNILATERAL LEFT LIMITED (10/31/2023 12:52 PM CDT) Anatomical Region Laterality Modality BREASTS, Breast Left, Breast Right Left Ultrasound 10/31/2023 12:5 2 PM CDT Impressions 10/31/2023 3:18 PM CDT Status post ultrasound-guided puncture and aspiration of the left breast. Reference CPT Code: 00582, 07008 Narrative 10/31/2023 3:18 PM CDT For Patients: As a result of the Cures Act, medical imaging exams and procedure reports are released immediately into your electronic medical record. You may view this report before your referring provider. If you have questions, please contact your health care provider. EXAM: 1. PUNCTURE AND ASPIRATION OF THE LEFT BREAST 2. ULTRASOUND GUIDANCE LOCATION: [facility] DATE: 10/31/2023 INDICATION: Fluid Collection At Surgical [...] bloody fluid was aspirated. This was discarded. Jessica CARD US * SCAN-CARDIAC STRIP (10/31/2023 12:00 AM CDT) Narrative 10/31/2023 12:00 AM CDT Ordered by an unspecified provider. Other Clinical Staff OTHER * PLATELET COUNT (10/24/2023 6:17 AM CDT) Only the most recent of2 resultswithin the time period is included. PLATELET COUNT 201 140 - 440 thou/cu mm 10/24/2023 7:01 AM CDT [facility] MPV 9.9 6.5 - 11.0 fL 10/24/2023 7:01 AM CDT [facility] Blood BLOOD SPECIMEN / Unknown Venipuncture / Unknown 10/24/2023 6:17 AM CDT 10/24/2023 6:47 AM CDT Ga Juan MD HEMATOLOGY Performing Organization Address [facility] Co de Phone Number [facility] [address] [address], [place] * HEMOGLOBIN (10/24/2023 6:17 AM CDT) Only the most recent of2 resultswithin the time period is included. HEMOGLOBIN 12.5 12.0 - 16.0 g/dL 10/24/2023 7:01 AM CDT [facility] MCV 88 80 - 100 fL 10/24/2023 7:01 AM CDT [facility] Blood BLOOD SPECIMEN / Unknown Venipuncture / Unknown 10/24/2023 6:17 AM CDT 10/24/2023 6:47 AM CDT Ga Juan MD HEMATOLOGY Performing Organization Address [facility] Co de Phone Number [facility] [address] [phone], [place] * SODIUM (10/24/2023 6:17 AM CDT) Only the most recent of2 resultswithin the time period is included. SODIUM 143 136 - 145 mmol/L 10/24/2023 7:21 AM CDT [facility] Blood BLOOD SPECIMEN / Unknown Venipuncture / Unknown 10/24/2023 6:17 AM CDT 10/24/2023 6:47 AM CDT Ga Juan MD CHEMISTRY Performing Organization Address [facility] Co de Phone Number [facility] [address] [address], [place] * POTASSIUM (10/24/2023 6:17 AM CDT) Only the most recent of2 resultswithin the time period is included. POTASSIUM 4.1 3.5 - 5.1 mmol/L 10/24/2023 7:21 AM CDT [facility] Blood BLOOD SPECIMEN / Unknown Venipuncture / Unknown 10/24/2023 6:17 AM CDT 10/24/2023 6:47 AM CDT Ga Juan MD CHEMISTRY Performing Organization Address [facility] Co de Phone Number [facility] [address] [place] [id number], [place] * CREATININE (10/24/2023 6:17 AM CDT) Pathologist [facility] eGFR >90 >90 mL/min/1.7 3m2 10/24/2023 7:21 AM CDT [facility] Comment:As of 2021, eG FR is calculated by the CKD-EPI creatinine equation without race adjustment. ??eGFR can be influenced by muscle mass, exercise, and diet. ??The reported eGFR is an estimation only and is only applicable if the renal function is stable. CREATININE 0.56 0.50 - 0.90 mg/dL 10/24/2023 7:21 AM CDT [facility] Blood BLOOD SPECIMEN / Unknown Venipuncture / Unknown 10/24/2023 6:17 AM CDT 10/24/2023 6:47 AM CDT Ga Juan MD CHEMISTRY [facility] [address] [place] [address], [place] * SCAN CORRESP-EKG RESULTS (10/23/2023 9:14 AM CDT) Narrative 10/23/2023 9:14 AM CDT Ordered by an unspecified provider. Other Clinical Staff OTHER * CT Head without Contrast (10/23/2023 5:42 AM CDT) Anatomical Region Laterality Modality HEAD, BRAIN Computed [...] For Patients: ??As a result of the Cures Act, medical [...] AM (Electronically Signed) Juanis CARD CT * (ABNORMAL) Basic Metabolic Panel (10/23/2023 5:16 AM CDT) Only the most recent of2 resultswithin the time period is included. SODIUM 141 136 - 145 mmol/L 10/23/2023 6:46 AM CDT [facility] POTASSIUM 4.1 3.5 - 5.1 mmol/L 10/23/2023 6:46 AM CDT [facility] CHLORIDE 107 98 - 107 mmol/L 10/23/2023 6:46 AM T [facility] CO2,TOTAL 25 22 - 29 mmol/L 10/23/2023 6:46 AM CDT [facility] ANION GAP 9 5 - 18 10/23/2023 6:46 AM T [facility] GLUCOSE 122(H) 70 - 99 mg/dL 10/23/2023 6:46 AM CDT [facility] CALCIUM 8.8 8.8 - 10.2 mg/dL 10/23/2023 6:46 AM CDT [facility] BUN 11 8 - 23 mg/dL 10/23/2023 6:46 AM CDT [facility] CREATININE 0.52 0.50 - 0.90 mg/dL 10/23/2023 6:46 AM CDT [facility] BUN/CREAT RATIO 21(H) 10 - 20 6:46 AM CDT [facility] eGFR >90 >90 mL/min/1.7 3m2 10/23/2023 6:46 AM CDT [facility] Comment:As of 2021, eG [...] 10/23/2023 6:10 AM CDT Juanis CARD [facility]STR[facility] [address] [place] [address], * SCAN-CARDIAC STRIP (10/22/2023 8:07 PM CDT) [...] (10/22/2023 2:21 PM CDT) Narrative Sonia Martinez AIR CONDITIONING MECHANIC Student - 10/22/2023 2:21 PM CDT Sonia Martinez AIR CONDITIONING MECHANIC Student ? 10/22/2023 ??2:21 PM Procedure: ETT [...] A Rh Positive 10/22/2023 6:07 AM CDT [facility] BLOOD BANK ANTIBODY SCREEN Negative Negative 10/22/2023 6:07 AM CDT [facility] SPECIMEN EXPIRATION DATE/TIME 10/25/23 23:59 10/22/2023 6:07 AM CDT [facility] [employer]-[facility] BLOOD BANK Blood BLOOD SPECIMEN / Unknown Venipuncture / Unknown 10/22/2023 4:52 AM CDT 10/22/2023 5:19 AM CDT Candice Lisseth Ray NP BLOOD BANK [facility] BLOOD BANK [address] [place] [address], * CBC W PLT NO DIFF (10/22/2023 4:52 AM CDT) WHITE BLOOD COUNT 6.4 4.5 - 11.0 thou/cu mm 10/22/2023 5:24 AM CDT [facility] RED BLOOD COUNT 4.70 4.00 - 5.20 mil/cu mm 10/22/2023 5:24 AM CDT [facility] HEMOGLOBIN 13.2 12.0 - 16.0 g/dL 10/22/2023 5:24 AM CDT [facility] HEMATOCRIT 41.2 33.0 - 51.0 % 10/22/2023 5:24 AM CDT [facility] MCV 88 80 - 100 fL 10/22/2023 5:24 AM CDT [facility] MCH 28.1 26.0 - 34.0 pg 10/22/2023 5:24 AM CDT [facility] MCHC 32.0 32.0 - 36.0 g/dL 10/22/2023 5:24 AM CDT [facility] RDW 12.1 11.5 - 15.5 % 10/22/2023 5:24 AM CDT [facility] PLATELET COUNT 214 140 - 440 thou/cu mm 10/22/2023 5:24 AM CDT [facility] MPV 9.9 6.5 - 11.0 fL 10/22/2023 5:24 AM CDT [facility] NRBC 0.0 % 10/22/2023 5:24 AM CDT [facility] ABS NRBC 0.0 thou /cu mm 10/22/2023 5:24 AM CDT [facility] Blood BLOOD SPECIMEN / Unknown Venipuncture / Unknown 10/22/2023 4:52 AM CDT 10/22/2023 5:19 AM CDT Gianfranco Gil MD HEMATOLOGY Performing Organization Address [facility] de Phone Number [facility] [address] [place] [address], * PROTIME-INR (10/22/2023 4:52 AM CDT) INR 1.1 <1.3 10/22/2023 5:31 AM CDT [facility] PROTIME 12.2 10.3 - 12.3 sec 10/22/2023 5:31 AM CDT [facility] Blood BLOOD SPECIMEN / Unknown Venipuncture / Unknown 10/22/2023 4:52 AM CDT 10/22/2023 5:19 AM CDT Narrative [facility] - 10/22/2023 5:31 AM CDT ?Therapeutic Range [...] Gianfranco Gil MD HEMATOLOGY Performing Organization Address [facility] Co de Phone Number [facility] [address] [place] [address], * SCAN-CARDIAC STRIP (10/21/2023 10:09 AM CDT) Scanner OTHER * SCAN-CARDIAC STRIP (10/21/2023 12:00 AM CDT) Narrative 10/21/2023 12:00 AM CDT Ordered by an unspecified provider. Other Clinical Staff OTHER * XR MAMMO ANN UNI SCREEN LEFT (02/25/2019 11:36 AM SHORTAGE WORKER) Anatomical Region Laterality Modality BREASTS, Breast Left Left Mammography Impressions 02/25/2019 2:04 PM SHORTAGE WORKER ??There is no radiographic evidence for malignancy. ??Recommend annual mammograms. A lay language report of this examination will be provided to the patient. MAMMOGRAM ASSESSMENT: ??ACR 1 Negative Narrative 02/25/2019 2:04 PM SHORTAGE WORKER XR MAMMO ANN UNI SCREEN LEFT [[id number]] CLINICAL HISTORY: ??This is an asymptomatic 68 y.o. patient. INDICATION FOR EXAM: Mammogram Screening. TECHNIQUE: CC & MLO views were obtained. ??This digital study was evaluated with the assistance of Computer-Aided Detection. Breast Tomosynthesis was used in interpretation. COMPARISON FILM: Yes 02/22/18 [facility] BRE[facility] [place] 01/10/17 [facility] FINDINGS: ??Mammographically, the breast tissue is extremely dense. ??This may lower the sensitivity of mammography. ??There are no dominant masses, suspicious micro calcifications or areas of architectural distortion. Sandi Abdullahi MD MAMMO from Last 3 Months or Most Recently Relevant to Health Maintenance Insurance Payer Benefit Plan / Group Subscriber ID Effective Dates Phone Address Type MEDICARE PPS HC MEDICARE PPS [id number] 2014-Pre se nt [address] [place] [address] MEDICARE - PB USE ONLY MEDICARE PB ONLY [id number] 2014-Prese nt ATTN: CLAIMS [address] [place] [address] [facility] [id number] 2018-Prese nt [address] [place] [address] MEDICARE PART A - HB USE ONLY MEDICARE PART A HB ONLY [id number] 2014-Prese nt ATTN: CLAIMS [address] [place] [address] MEDICARE PART B - HB USE ONLY MEDICARE PART B HB ONLY [id number] 2017-Pre sent ATTN: CLAIMS [address] [place] [address] Advance Directives * Full Code (Latest Code [...] Comments Code Status Discussion: Discussed Care Teams Superintendent [employer] Relationship Specialty Start Date End Date Sandi Abdullahi MD [address] [place] [address] PCP - General Family Practice 02/08/17 Amber Foy, DICK [address] [address] Nurse Navigator - Oncology Registered Nurse 09/21/23 Rafael Angel MD [address] [address] Surgery - Oncology 09/21/23
--- NOTE | 2024-01-21 11:15 | CRLHL7_ITS ---
For Patients: As a result of the Century Cures Act, medical imaging exams and procedure reports are released immediately into your electronic medical record. You may view this report before your referring provider. If you have questions, please contact your health care provider. ULTRASOUND-GUIDED LEFT AXILLARY LYMPH NODE BIOPSY AND MARKER PLACEMENT CLINICAL HISTORY: Enlarged left axillary lymph node, post left mastectomy 4 months prior. Recent history of COVID/flu vaccination left arm. COMPARISON STUDIES: 01/14/2024 TECHNIQUE: Real-time ultrasound with image documentation was used for targeting the left axillary lymph node lesion. Core biopsy specimens were obtained using an automated gun with an 18-gauge biopsy needle. CONSENT and TIME OUT: The procedure, risks, and alternatives were explained to the patient and a consent was signed. [place] Protocol was followed including pre-procedure verification that relevant information/documentation was available, reviewed and properly matched to the patient; consent accurate and complete; and equipment and supplies available. Time Out was conducted just prior to starting procedure to verify the four required elements: patient identity, correct side/site marked (if applicable), procedure, relevant images/results properly labeled and displayed (if applicable). PROCEDURE: The patient was positioned supine on the ultrasound table. The left axilla was prepped with ChloraPrep. 7 cc of 1 percent lidocaine used for local anesthesia. Core samples were obtained. A sterile metal biopsy clip was placed percutaneously to roland the lesion position within the breast. The specimens were placed in 10% formalin and sent to the pathology department. Pressure was held on the biopsy site until all bleeding subsided. The skin incision was closed with Steri-Strips. An ice pack was positioned over the biopsy site. Post-biopsy instructions were reviewed with the patient, and a written copy was given to her. LATERALITY: Left axilla LESION: Mildly prominent left axillary lymph node with slight cortical thickening measuring 2.7 millimeters SUSPICION FOR MALIGNANCY: Intermediate NUMBER OF SAMPLES: 5 BIOPSY CLIP SHAPE: Oval PROXIMITY OF CLIP TO TARGET: IMPRESSION: Ultrasound-guided left axillary lymph node biopsy. When the pathology report is available, an addendum to this report will be made. ACR not applicable Dictated by Poncho Garay MD @ 01/21/2024 12:22:39 PM (Electronically Signed)
== END 2024-01-21 11:08 | disposition home or self-care (01) ==
PROVIDERS: PCP Family Medicine; Visit Provider Internal Medicine Hematology & Oncology
DX: R59.0 Localized enlarged lymph nodes (principal)
CPT/HCPCS: 38505; 76942; 88305; 97110; 97165; 97535; A4648; A4649; X5282

== ENCOUNTER 2024-02-25 08:41 | Outpatient (CLI) | payer MEDICARE, BC, SELFPAY ==
--- OUTSIDE RECORDS SUMMARY | 2024-02-27 08:05 | XMS_ITS | Clinical Summary ---
Author Organization [facility] Address [place], [place] [address] Care Team Providers Care Call Center Associate Name Role Phone Sandi Abdullahi MD Primary Care Provider + Amber Foy RN Unavailable [phone] Rafael Angel MD Unavailable [phone] Allergies Active Allergy Reactions Criticality Noted Date [...] the tongue once daily. Active vit-min eye [id number] (PreserVision AREDS) capsule Take 1 Capsule by [...] from cancer genetic counselor. Anh Reilly MS, [facility] 12/17/2023 5:00 PM S/P craniotomy 10/24/2023 Chronic subdural hematoma 10/21/2023 Left hemiparesis 10/20/2023 Midline shift of brain 10/20/2023 Malignant neoplasm of left b reast in female, estrogen receptor negative 09/24/2023 Cancer Staging:Clinical stage from 09/24/2023:Stage 0(cTis (DCIS), cN0, cM0, ER-, UT: Not Assessed, HER2: Not Assessed) - Signed by Rafael Angel MD on 09/24/2023 Pathologic stage from 10/18/2023:Stage Unknown(pT1a, pNX, cM0, G2, ER-, UT-, HER2: Equivocal) - Signed by Jessica Minaya PA on 10/31/2023 Encounters Date Type Department Care Team Description 01/28/2024 Telephone [facility] [address] [address] Anh Orantes, MS, CGC Follow Up (Genetic testing follow up) 12/18/[address] [facility] [address] [place] [phone] Rafael Angel MD <No scans attached> 12/17/2023 11:40 AM CDT Office Visit [facility] [address] [place] [phone] Rafael Angel MD Follow Up 12/17/2023 8:00 AM CDT Phone Office Visit [facility] [address] [place] [address] Anh Orantes, MS, CGC Counseling (Genetic testing follow-up CHEK2 positive) 12/17/2023 Travel 12/13/2023 Telephone [facility] [address] [address] Anh Orantes, MS, CGC Results (Cancer genetic testing) 12/13/2023 Telephone [facility] [address] [phone] Sourav Alegre MD Questions 12/06/2023 12:20 PM CDT Orders Only [facility] [address] [place] [address] Lab 12/06/2023 11:00 AM CDT Office Visit [facility] [address] [place] [address] Rafael Clay MD Consult 12/06/2023 Travel 12/04/2023 Telephone [facility] [address] [place] [address] Claudia Martines Cancer Genetics 12/03/2023 11:00 AM CDT Phone Office Visit [facility] [address] [place] [address] Anh Orantes MS, CGC Counseling (Cancer genetic counseling) 12/03/2023 Travel 11/30/2023 11:30 AM CDT Phone [facility] [address] [place] [phone] Melva Melendrez NP Surgical Followup 11/28/[address] [facility] [address] [place] [address] [facility] Cancer Referral (Malignant neoplasm of left breast in female) from Last 3 Months Family History Medical [...] e alcohol) Social Connections Answer Date Recorded Do you often feel lonely or isolated from those around you? 0 10/20/2023 Financial Resource Strain Answer Date R ecorded Difficulty of Paying Living Expenses 3 10/20/2023 Difficulty of Paying Living Expenses Not on file 10/20/2023 Food Insecurity Answer Date Recorded Do you worry your food will run out before you are able to buy more? 1 10/20/2023 Transportation Needs Answer Date Record ed Does lack of transportation keep you from medica l appointments? 1 10/20/2023 Does lack of transportation keep you from work, meetings or getting things that you need? 1 10/20/2023 Housing Stability Answer Date Recorded [...] 69 12/17/2023 11:49 AM CDT Temperature 36.6 C (97.8 F) 12/17/2023 11:49 AM CDT Respiratory Rate 17 12/06/2023 11:44 AM CDT [...] for age 65+ 11/25/2023 COVID-19 vaccine series ( season) 2024 12/13/2023, 12/28/2022, 08/01/2022, Additional history exists BMI (ht and wt on same day) for age 18+ 12/16/2024 12/17/2023, 12/06/2023, 11/07/2023, Additional history exists Medical Devices Implanted Type Area Subway Guard Device Identifier Shelf Expiration Date Model / Serial / Lot Dura Neuro 2x2in Duragen Plusnon-Sut - [id number] Implanted:Qty: 1 on 10/22/2023 by Sourav Alegre MD at [facility] Right: Cranium [employer] 07/23/2026 DP-1022 / / [id number] Screw Neuro 4mm Matrixneuro Slf Drill Titnm - [id number] Implanted:Qty: 8 on 10/22/2023 by Sourav Alegre MD at [facility] Right: Cranium J And J Depuy CMF [id number] 4.01 / / Ethel Hole Cover Neuro 17mm Synthes Low Pro Titnm Implanted:Qty: 1 on 10/22/2023 by Sourav Alegre MD at [facility] Right: Cranium [id number] / / Description:[place] Cover Neuro 17mm Synthes Low Pro Titnm [place] Cover Neuro 17mm Synthes Low Pro Shunt Implanted:Qty: 1 on 10/22/2023 by Sourav Alegre MD at [facility] Right: Cranium [id number] / / Description:[place] Cover Neuro 17mm Synthes Low Pro Shunt Procedures Procedure Name Priority Date/Time Associated Diagnosis Comments XR MAMMO ANN UNI SCREEN LEFT Routine 02/25/2019 11:36 AM CHIMNEY SWEEPER Visit for screening mammogram from Last 3 Months or Most Recently Relevant to Health Maintenance Results * XR MAMMO ANN UNI SCREEN LEFT (02/25/2019 11:36 AM CHIMNEY SWEEPER) Anatomical Region Laterality Modality BREASTS, Breast Left Left Mammography Impressions 02/25/2019 2:04 PM CHIMNEY SWEEPER There is no radiographic evidence for malignancy. Recommend annual mammograms. A lay language report of this examination will be provided to the patient. MAMMOGRAM ASSESSMENT: ACR 1 Negative Narrative 02/25/2019 2:04 PM CHIMNEY SWEEPER XR MAMMO ANN UNI SCREEN LEFT [[id number]] CLINICAL HISTORY: This is an asymptomatic 68 y.o. patient. INDICATION FOR EXAM: Mammogram Screening. TECHNIQUE: CC & MLO views were obtained. This digital study was evaluated with the assistance of Computer-Aided Detection. Breast Tomosynthesis was used in interpretation. COMPARISON FILM: Yes 02/22/18 [facility] BRE[facility] [place] 01/10/17 [facility] FINDINGS: Mammographically, the breast tissue is extremely dense. This may lower the sensitivity of mammography. There are no dominant masses, suspicious micro calcifications or areas of architectural distortion. Sandi DOMINGUEZ from Last 3 Months or Most Recently [...] Comments Code Status Discussion: Discussed Care Teams Call Center Associate Relationship Specialty Start Date End Date Sandi Abdullahi MD [address] [place] [address] PCP - General Family Practice 02/08/17 Amber Foy, RN [address] [place] [address] Nurse Navigator - Oncology Registered Nurse 09/21/23 Rafael Angel MD [address] [place] [address] Surgery - Oncology 09/21/23
== END 2024-02-25 08:42 | disposition home or self-care (01) ==
LOC: NFLDREF 02-27 07:43
PROVIDERS: PCP Family Medicine; Referring Provider Family Medicine; Visit Provider Family Medicine
DX: E55.9 Vitamin D deficiency, unspecified (principal); R53.83 Other fatigue; E04.1 Nontoxic single thyroid nodule; E53.8 Deficiency of other specified B group vitamins; Z13.6 Encounter for screening for cardiovascular disorders; Z13.0 Encounter for screening for diseases of the blood and blood-forming organs and certain disorders involving the immune mechanism
CPT/HCPCS: 80053; 80061; 82306; 82607; 82728

== ENCOUNTER 2024-04-10 13:30 | Outpatient (RCR) | payer MEDICARE, BC, SELFPAY | END 2024-06-29 23:59 | disposition home or self-care (01) | LOC: CCIC 13:30 | PROVIDERS: PCP Family Medicine; Visit Provider Physician Assistant | DX: D05.12 Intraductal carcinoma in situ of left breast (principal); Z17.1 Estrogen receptor negative status [ER-]; Z90.13 Acquired absence of bilateral breasts and nipples | CPT/HCPCS: 99202; 99205; 99213; G0463 ==

== ENCOUNTER 2024-07-17 12:29 | Outpatient (CLI) | payer MEDICARE, BC, SELFPAY ==
--- NOTE | 2024-07-29 12:00 | W.PM.SLEEP ---
Sleep Study Details Details Interpreting Provider: Jo Date of Sleep Study: 07/17/24 Sleep Study Details: STUDY TYPE:? Home unattended ? BMI:? 20.1 ORDERING PROVIDER:Paulino Osorio INDICATION:? Concern about sleep apnea ? SLEEP SUMMARY:? 626 minutes monitored RESPIRATORY SUMMARY:? AHI 17.8 per rule 1A guideline, 15.3 per CMS guideline Approximately 1/4 of all respiratory events were central apneas Low oxygen 84 0.4% of study oxygen less than 90% Snoring 97.8% PERIODIC LIMB MOVEMENTS OF SLEEP:? Not recorded CARDIAC:? Range 56-103, mean 67.5 beats per minute IMPRESSION:? Moderate mixed sleep apnea without significant desaturation. RECOMMENDATION: She would likely be safe to trial a Maximino CPAP at home with close follow-up. Dental appliance would be another treatment option for her.
== END 2024-07-17 12:30 | disposition home or self-care (01) ==
LOC: SLEEP 12:31
PROVIDERS: PCP Family Medicine; Visit Provider Otolaryngology
DX: G47.39 Other sleep apnea (principal); G47.10 Hypersomnia, unspecified; G47.30 Sleep apnea, unspecified; R06.83 Snoring
CPT/HCPCS: 95806

== ENCOUNTER 2024-08-25 21:00 | Outpatient (CLI) | payer MEDICARE, BC, SELFPAY ==
--- NOTE | 2024-09-02 10:41 | W.PM.SLEEP ---
Sleep Study Details Details Interpreting Provider: Jo Date of Sleep Study: 08/25/24 Sleep Study Details: STUDY TYPE:? Hospital-based, attended with CPAP titration ? BMI:? 20.1 ORDERING PROVIDER:? Jo INDICATION:? Previous positive sleep study ? SLEEP SUMMARY:? 238.5 minutes total sleep time RESPIRATORY SUMMARY:? Overall AHI for this study was 2.3 per CMS guideline 6.8 per rule 1A. Post treatment nonsupine REM AHI is 3.6. CPAP titration was present was titrated to a pressure of 9 which decreased AHI to 1.1 and included nonsupine REM stage sleep PERIODIC LIMB MOVEMENTS OF SLEEP:? Index 12.8, index with arousal 3.5 CARDIAC:? Awake 71, asleep 69, PVCs noted IMPRESSION:? Successful CPAP titration to a pressure of 9 in the nonsupine position RECOMMENDATION: Initiate AutoSet CPAP pressure 9 217. Patient should be advised to sleep in the nonsupine position.
== END 2024-08-25 21:01 | disposition home or self-care (01) ==
LOC: SLEEP 21:01
PROVIDERS: PCP Family Medicine; Visit Provider Otolaryngology
DX: G47.33 Obstructive sleep apnea (adult) (pediatric) (principal)
CPT/HCPCS: 95811

== ENCOUNTER 2024-09-10 12:30 | Outpatient (RCR) | payer MEDICARE, BC, SELFPAY ==
--- NOTE | 2024-02-07 17:24 | OT.OPGNE2 ---
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 Pt underwent a mastectomy and crainiotomy with 4 days of each other in September 2023, initially needed assist with all ADLs/IADLs, now 4 months later has resumed all previous activities except for driving . 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 Pain Assessment Pain Pain No Cognitive Assessments Performed Cognitive Assessments Performed Rich Cognitive Assessment (MOCA) Results Rich Cognitive Assessment (MoCA), 26-30 = Normal cognition Patient?s Score: 30/30 A score of less than 26 indicates need for further cognitive assessments Scores 18-25= MCI and warrants f/u, not necessarily cessation. <18 indicates concern with driving safety; each 1pt decrease in score = 1 .36x more likely to fail road test. Assessment Assessment Assessment Pt is a 73yr female who lives alone in own home, but has her sister near by to help. Pt referred to OT for driving assessment following significant hospitalization for evacuation of intracerebral hemorrhage. Pt WFL for BUE, head and neck ROM, and MMT WFL. Pt completed toe tapping assessment, normed for >6 secs for safe driving, and Pt completed in 4.5 secs. Pt?s vision was assessed, Pt wears appropriate Rx glasses, has intact visual field. Pt?s smooth pursuits, saccades ( horizonal and vertical), convergence, and vestibular- ocular reflex (VOR), all tested WNL. Pt completed scan course, identified 20/20 correctly, within the 35-50 secs normed, 19/20 or above is the normed score. Pt completed MoCA cog assessment with a score of 30/30, 26> being in the normal range. Pt shows no deficits in her driving skills and OT is recommending no additional assessment or change in driving routine. Occupational Therapy Treatment Plan - OP Goals Goals 1. Pt will participate in cognitive/driving assessment and verbalize understanding of results in one session. MET Treatment Plan Treatment Plan Evaluation,Self-Care/Home Management,Education Treatment/Frequency/Duration Comments one time OT eval and tx Certification Certification Statement I Certify That: Therapy Services Provided, Therapy Plan Established, Therapy Plan Reviewed Certification Information Clinic ID # [id number] Initial Certification Date 02/07/24 Recertification Due Date 05/07/24 Provider Signature Required Yes Provider Signature Shows Agreement With POC & Medical Necessity Physician NPI Number Write NPI# Here Physician Comment/Change Comment or Changes Physician Signature & Date Requested Please Sign/Date Here
--- OUTSIDE RECORDS SUMMARY | 2024-03-27 13:24 | XMS_ITS | Clinical Summary ---
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 Name Role Phone Sandi Abdullahi MD Primary Care Provider + Amber Foy RN Unavailable [phone] Rafael Angel MD Unavailable [phone] Allergies Active Allergy Reactions Criticality Noted Date Comments Adhesive Tape-Silicones Contact Dermatitis High 09/24/2023 Severe blistering Ibuprofen Other - Describe In Comment Field 10/17/2023 Abdominal pain Latex Contact Dermatitis 10/17/2023 Likely reacted to adhesive, but will keep on list for safely Meperidine Nightmares 10/17/2023 Metoprolol Confusion 10/17/2023 Midazolam Mental Status Change 10/17/2023 Cognitive impairment Propoxyphene Confusion,Mental Status Change 10/17/2023 Medications Post Mastectomy BraIndications:M alignant neoplasm of left breast in female, estrogen receptor negative, unspecified site of breast (HC) Fit for mastectomy bras and prosthesis, dispense 2 breast prosthesis and 6 mastectomy bras. 1 Packet 3 09/24/19 Active cholecalciferol (Vitamin D) 1,000 unit capsule Take 1,000 units by mouth once daily. Active mecobalamin, vitamin B12, 1,[address] 1,000 mcg under the tongue once daily. Active vit-min eye [id number] 0mg (PreserVision AREDS) capsule Take 1 Capsule by mouth two times daily. Active acetaminophen (TYLENOL EXTRA STRGTH) 500 mg tabletIndication s:Malignant neoplasm of left breast in female, estrogen receptor negative (HC) Take 2 Tablets (1,000 mg) by mouth every 6 hours if needed for Pain. Max acetaminophen dose: 4000mg in 24 hrs. 10/18/19 Active WalkerIndication s:S/P craniotomy,Chron ic subdural hematoma (HC) Walker with front wheels for home use. 1 Each 10/24/19 Active polyethylene glycoL (MIRALAX) 17 gram/scoop powderIndication s:Constipation, unspecified constipation type Take 1 scoop (17 g) by mouth or nasogastric tube once daily if needed for Constipation. 510 g 10/25/2023 9:26 AM CDT 10/25/19 Active sennosides-docus ate (SENOKOT S) (8.6-50 mg) tabletIndication s:Constipation, unspecified constipation type Take 1-4 Tablets by mouth 2 times daily if needed for Constipation. 40 Tablet 10/25/2023 9:26 AM CDT 10/25/19 Active hydrocortisone 1 % cream Apply 1 Strip topically to affected area(s) 4 times daily if needed for Itching. 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 See detailed letter dated 12/17/23 from cancer genetic counselor. Anh Reilly, MS, [facility] 12/17/2023 5:00 PM S/P craniotomy 10/24/2023 Chronic subdural hematoma 10/21/2023 Left hemiparesis 10/20/2023 Midline shift of brain 10/20/2023 Malignant neoplasm of left b reast in female, estrogen receptor negative 09/24/2023 Cancer Staging:Clinical stage from 09/24/2023:Stage 0(cTis (DCIS), cN0, cM0, ER-, AL: Not Assessed, HER2: Not Assessed) - Signed by Rafael Angel MD on 09/24/2023 Pathologic stage from 10/18/2023:Stage Unknown(pT1a, pNX, cM0, G2, ER-, AL-, HER2: Equivocal) - Signed by Jessica Minaya PA on 10/31/2023 Encounters Date Type Department Care Team Description 01/28/2024 Telephone [facility] [place] [facility] [place] [address] [facility] [address] [place] [address] Anh Orantes MS, [facility] Follow Up (Genetic testing follow up) from Last 3 Months Family History Medical [...] drink = 0.6 oz pur e alcohol) [facility] Utilities Answer Date Recorded Do you have trouble paying f or utilities (for example, heat, electricity, water, phone)? Yes 10/20/2023 Social Connections Answer Date Recorded Do you [...] is your housing situation today? 1 10/20/2023 Interpersonal Safety Answer Date Record ed Are you being hit, kicked, p ushed or yelled at (see row info)? No 10/20/2023 Interpersonal Safety Abuse 12 - 18 Not on file 10/20/2023 Interpersonal Safety Ambulatory Vulnerability No t on file 10/20/2023 Comments No Sex and Gender Information Value Date Recorded Sex Assigned at Not on file Legal Sex Female 2:41 PM CDT Gender Identity Not on file Sexual Orientation [...] C screening for ag e 18-79 05/27/1967 Pneumococcal series for age 50+ (1 of 2 - PCV) 1968 Tetanus booster 1969 Colonoscopy through age 75 1994 Lipids for age 45-75 1994 Zoster (shingles) series for age 50+ (1 of 2) 05/27/1999 DEXA/DXA scan for age 65+ 2014 Medicare Wellness for age 65+ 2014 Mammogram for age 45-75 02/26/2020 02/26/20, 02/22/2018, 02/28/2017, Additional history exists Influenza for age 65+ 11/25/2023 RSV vaccine for adults or (1 - 1-dose 75+ series) 2024 BMI (ht and wt on same day) for age 18+ 12/16/2024 12/17/2023, 12/06/2023, 11/07/2023, Additional history exists COVID-19 vaccine series Completed 12/13/19 24, 12/28/2022, 08/01/2022, Additional history exists Medical Devices Implanted Type Area Mannequin Mounter Device Identifier Shelf Expiration Date Model / Serial / Lot Dura Neuro 2x2in Duragen Plusnon-Sut - [id number] Implanted:Qty: 1 on 10/22/2023 by Sourav Alegre MD at [facility] Right: Cranium [employer] [facility] 07/23/2026 DP-1022 / / [id number] Screw Neuro 4mm Matrixneuro Slf Drill Titnm - [id number] Implanted:Qty: 8 on 10/22/2023 by Sourav Alegre MD at [facility] Right: Cranium J And J Depuy CMF [id number] 4.01 / / [place] Cover Neuro 17mm Synthes Low Pro Titnm Implanted:Qty: 1 on 10/22/2023 by Sourav Alegre MD at [facility] Right: Cranium [id number] / / Description:[place]utor [place] Hole Cover Neuro 17mm Synthes Low Pro Titnm Ethel Hole Cover Neuro 17mm Synthes Low Pro Shunt Implanted:Qty: 1 on 10/22/2023 by Sourav Alegre MD at [facility] Right: Cranium [id number] / / Description:[place]utor [place] Cover Neuro 17mm Synthes Low Pro Shunt Procedures Procedure Name Priority Date/Time Associated Diagnosis Comments XR MAMMO ANN UNI SCREEN LEFT Routine 02/25/2019 11:36 AM FISHER DIVING Visit for screening mammogram from Last 3 Months or Most Recently Relevant to Health Maintenance Results * XR MAMMO ANN UNI SCREEN LEFT (02/25/2019 11:36 AM FISHER DIVING) Anatomical Region Laterality Modality BREASTS, Breast Left Left Mammography Impressions 02/25/2019 2:04 PM FISHER DIVING There is no radiographic evidence for malignancy. Recommend annual mammograms. A lay language report of this examination will be provided to the patient. MAMMOGRAM ASSESSMENT: ACR 1 Negative Narrative 02/25/2019 2:04 PM FISHER DIVING XR MAMMO ANN UNI SCREEN LEFT [[id number]] CLINICAL HISTORY: This is an asymptomatic 68 y.o. patient. INDICATION FOR EXAM: Mammogram Screening. TECHNIQUE: CC & MLO views were obtained. This digital study was evaluated with the assistance of Computer-Aided Detection. Breast Tomosynthesis was used in interpretation. COMPARISON FILM: Yes 02/22/18 [facility] 01/10/17 [facility] [place] FINDINGS: Mammographically, the breast tissue is extremely dense. This may lower the sensitivity of mammography. There are no dominant masses, suspicious micro calcifications or areas of architectural distortion. Sandi Abdullahi MD MAMMO Final Re sult from Last 3 Months or Most Recently Relevant to Health Maintenance Insurance MEDICARE PART B HB ONLY MEDICARE PART A HB ONLY [facility] MEDICARE PB ONLY HC MEDICARE PPS [facility] Advance Directives * Full Code (Latest Code [...] Comments Code Status Discussion: Discussed Care Teams Continuous Mining Machine Coal Miner Relationship Specialty Start Date End Date Sandi Abdullahi MD [address] [place] [address] PCP - General Family Practice 02/08/17 Amber Foy, RN 225 [facility] [address] [place] [address] Nurse Navigator - Oncology Registered Nurse 09/21/23 Rafael Angel MD 225 [facility] [address] [place] [address] Surgery - Oncology 09/21/23
--- NOTE | 2024-06-12 16:36 | OT.OPLDN2 ---
OT Outpatient Lymphedema Daily Note OT Outpatient Lymphedema Daily Note* Start: 01/17/24 18:39 Freq: Status: Active Protocol: Document 06/12/24 12:40 AMB (Rec: 06/12/24 16:35 AMB [email or web address]) E-signed By Lore Ludwig, OTR/L, CLT, INSTRUCTIONAL TECHNOLOGY DIRECTOR Type of Note Type of Note Type of Note Daily Note Visit Number 3 Insurance Information Insurance Information Insurance Information Blue Cross/Blue Shield, Medicare B Home Program Home Program Home Program Compliant Home Program Specifics 03/27/24 Self-monitoring for s/s of lymphedema. 01/15/25 Provided training and practice in [facility] for standing wall climbs for left shoulder flex and abd, supine AAROM for LUE shoulder flexion, supine chicken wing, standing chicken wing, scapular retraction, and scar mobilization. Following demo, pt is able to replicate ex with minimal cues . Pt had to perform all exs seated today though as she was concerned for BPPV. Pt was provided with written instructions for use at home as well. OT OP Lymphedema Daily/Progress Note Current Condition/Medical Diagnosis Referring Provider Dr Angel / Dr Abdullahi Treatment Diagnosis I89.0 Lymphedema Breast Cancer on the left ( current), 20 years ago Breast cancer on the right. Date Of Onset DOS: 10/18/23 Medical History Medical History Comments PMH (copied from oncology chart): Chronologic oncology history 09/03/2023 mammogram screening Right breast no suspicious findings. Left breast cluster of microcalcifications lateral 6 cm from the nipples BI-RADS 0. Incomplete 09/11/23 diagnostic mammogram consistent with persistent microcalcifications in mid outer left breast at 3:00 a.m. position close to the chest wall, stereotactic biopsy is recommended CT BI-RADS category 4. 09/12/2023 left breast core biopsy, stereotactic guided core biopsy consistent with DCIS grade 3, negative for invasive carcinoma, positive atypical lobular hyperplasia ER receptor negative. 10/18/2023 left breast mastectomy invasive ductal carcinoma grade 2 size 1.4 mm, extensive DCIS grade 3 size 55 mm, invasive carcinoma is at least 10 mm from surgical margins. ER negative RI negative her 2 equivocal 2+ negative by fish. Atypical lobular hyperplasia ALH. 10/19/2023: Seen by Neurology (left hemiparesis, midline shift or brain) for acute onset left leg weakness and speech hesitation; seen by Dr. Narcisa Littlejohn-for enlarging right convexity subdural hygroma status post closed head injury with concussion 2 months ago now resulting in proximal left leg weakness and mild aphasia or verbal apraxia. Likely trauma related. In in hygroma also possible with breast cancer diagnosis.--recommendations to refer to sandhya Rivers to get neurosurgical/Neuro Critical Care consult with plans of transfer to higher level of care. 10/23/2023 right-sided craniotomy for evacuation of subdural hematoma 11/07/[address] Rafael Angel pathologic staging T1a NX M0, grade 2 ER negative RI negative HER2 equivocal She is status post bilateral breast cancer, -DCIS at the age of 53 for right breast - most recent diagnosis of invasive ductal carcinoma of her left breast at age 73. She has had mastectomy. # status post hysterectomy and bilateral salpingo- oophorectomy in 2003 due to menorrhagia and fibroids #Most recent colonoscopy in 2020, no polyps Family history unremarkable for breast cancer Social history negative for drinking or smoking. 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 Has moved from [place] to [place] to be closer to sister and her children and grandchildren. Allergies reviewed 2 IDC of gets blisters Medical History (Updated 12/30 @ 10:45 by Roxanne Campuzano MD) Intermittent palpitations R00.2 - Palpitations (ICD-10) Subdural hematoma (10/19/23) S06.5XAA - Traumatic subdural hemorrhage with loss of consciousness status unknown, initial encounter (ICD-10) Vegetarian diet Z78.9 - Other specified health status (ICD-10) Vitamin D deficiency E55.9 - Vitamin D deficiency, unspecified (ICD-10) Closed head injury (~07/2023) S09.90XA - Unspecified injury of head, initial encounter ( ICD-10) Tubular adenoma (2017) D36.9 - Benign neoplasm, unspecified site (ICD-10) Polyp of colon (11/2014) K63.5 - Polyp of colon (ICD-10 ) Migraine headache G43.909 - Migraine, unspecified, not intractable, without status migrainosus ( ICD-10) Macular degeneration H35.30 - Unspecified macular degeneration (ICD-10) Low vitamin B12 level E53.8 - Deficiency of other specified B group vitamins ( ICD-10) Herpes zoster B02.9 - Zoster without complications (ICD-10) Thyroid nodule (04/06/22) E04.1 - Nontoxic single thyroid nodule (ICD-10) Surgical History Surgical History Status post craniotomy () Z98.890 - Other specified postprocedural states (ICD-10) S/P mastectomy (09/28/23) Z90.10 - Acquired absence of unspecified breast and nipple (ICD-10) History of right mastectomy ( 10/2003) Z90.11 - Acquired absence of right breast and nipple (ICD- 10) History of hysterectomy with oophorectomy (08/2003) History of esophagogastroduodenoscopy ( EGD) (2014) Z98.890 - Other specified postprocedural states (ICD-10) History of colonoscopy Z98.890 - Other specified postprocedural states (ICD-10) History of bilateral inguinal hernia repair (1999) Z98.890 - Other specified postprocedural states (ICD-10) Z87.19 - Personal history of other diseases of the digestive system (ICD-10) Medications Medications Home Medications (copied from medical chart): - Last Reconciled 01/01/24 by Tila Williamson RN cholecalciferol (vitamin D3) 25 mcg PO QDAY mecobalamin (vitamin B12) 1, 000 mcg sublingual QDAY vit C,K-Lp-rngla-lutein-zeaxan 250-90-40-1 mg (PreserVision AREDS-2) 1 tab PO BID Family History Family History of Lymphedema No Current Work Status Current Work Status Retired 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 Pt no longer has concerns regarding her concussion. Pt feels she has more energy and feels well. Pt still massaging every day but feels it really isn't doing anything anymore as her chest wall is still very bumpy pt feels the bumps are very firm, it doesn't feel like swelling, it's just so firm, like tissue. Pt no longer has conerns about her shoulder, no pain and feels she has full ROM. Living Situation Current Living Situation Private Home/Apartment (Alone) Current Living Situation Comments Pt has a sister, nieces and nephews in the area that are very supportive. Problem List Problem List Limited Knowledge of Lymphedema Treatment/Condition /Precautions,Limited Knowledge of Skin Care & Infection Precautions,Significant Risk For Infection For Lymphedema Related Complications,Does Not Have a HEP Exercise History Does Patient Exercise Regularly Yes Exercise Comments Likes to walk but has been limited due to her head injury and recent surgeries. Pain Pain No ROM/Strength ROM/Strength Comments 03/27/24 PT now demonstrates full AROM of her left shoulder , abd is difficult but able to achieve full, strength is 5-/ 5 flex, ER, and IR, 4+/5 abd. 01/17/24 AROM of the LUE shoulder is significantly limited as follows: Flexion: 130 Abd: 120 ER: 70 IR: 75 Measurements taken in seated as pt was afraid of vertigo. Compression History Does Patient Currently Wear Compression No During Daytime Does Patient Currently Wear Compression No At Night Current Swelling (Location/Pitting/Texture) Pitting Scale: 0 = No pitting 1+ Tissue returns to normal almost immediately 2+ Tissue returns after 15-30 seconds 3+ Tissue returns after 1-1/2 minutes 4+ Tissue returns after 2-3 minutes N/A Tissue no longer pits due to induration Tissue texture: Soft or indurated Clinical Presentation Area LUE quadrant Positive Stemmer's Sign No Capillary Refill Brisk Stemmer and Capillary Refill Comments Same for both UE Swelling Comments Pt does still have some thickness in her scar tissue, mild swelling ore residual tissue following her mastectomy. Type of Swelling Post Surgery/Traumatic Edema Circumferential Measurements Upper Extremity Left Upper Extremity MCP (in cm) 19.0 Palm (in cm) 19.0 Smallest Wrist Measurement (in cm) 15.4 10 cm Above Smallest Wrist Measurement 16.8 20 cm Above Smallest Wrist Measurement 22.5 30 cm Above Smallest Wrist Measurement 24.0 40 cm Above Smallest Wrist Measurement 25.5 50 cm Above Smallest Wrist Measurement 26.0 Total Girth in cm 168.2 Right Upper Extremity MCP (in cm) 19.0 Palm (in cm) 18.8 Smallest Wrist Measurement (in cm) 15.5 10 cm Above Smallest Wrist Measurement 16.7 20 cm Above Smallest Wrist Measurement 22.0 30 cm Above Smallest Wrist Measurement 23.0 40 cm Above Smallest Wrist Measurement 24.8 50 cm Above Smallest Wrist Measurement 25.5 Total Girth in cm 165.3 Treatment Therapeutic Activity Minutes (minutes) 7 Therapeutic Activity Comments Re-assessment of UE ROM and skin / scar tissue. Self-Care/Home Management Minutes ( 25 minutes) Self-Care/Home Management Comments Provided review of patient education regarding the lymphatic system, s/s of lymphedema, treatment options for lymphedema, implications of untreated lymphedema, infection and it's correlation to lymphedema as well as implications of untreated infection. Discussed risk reduction practices including skin care and monitoring strategies. Discussed the importance of regular exercise and healthy habits. Following discussion, pt is able to identify 2 s/s of lymphedema and 2 ways to reduce her risk for developing lymphedema. [ End ] Total Occupational Therapy Minutes 32 Assessment Assessment Pt presents 8 months post- operatively for initiation of lymphedema surveillance program. Following her left sided mastectomy with SLN biopsy, pt is at risk for lymphedema in her LUE / upper quadrant due to LN removal. Currently, pt is not showing any s/s of lymphedema in her L upper quadrant. Pt does have significant disfigurement of her left chest wall due to her mastectomy and is quite concerned as the mastectomy she had 20 years ago on her right side is smooth with very little scar tissue. Encouraged pt to speak with her MD about this. Pt continues to progress towards her goals. She is able to identify 2 s/s of lymphedema and 2 risk reduction practices for lymphedema. Pt will benefit from skilled OT intervention for pt education, monitoring / surveillance in order to provide early detection / intervention to assure best positive outcomes with fewer lymphedema related complications if the need arises. Patient Goals Patient Goals 1. Pt will demonstrate a general understanding of the lymphatic system, s/s of lymphedema, treatment of lymphedema, implications of untreated lymphedema, s/s of infection and the correlation of infection related to lymphedema. 3 months 2. Pt will be compliant with quarterly assessments for lymphedema surveillance in order to obtain early intervention with best outcomes if needed. 12 months Treatment Plan Treatment Plan Evaluation,Edema Control,Joint Mobilization,Manual Therapy, Wound Care/Scar Management, Therapeutic Exercise, Therapeutic Activities,Self- Care/Home Management,Education Other Treatment Plan 1 visit every 3 months x 12 months or prn if lymphedema develops. Expected Duration 12 months Occupational Therapy Billing Units Treatment Minutes Timed Treatment Minutes 32 Total Treatment Minutes 32 Billing Units Self Care/Home Management 2 Certification Statement Certification Statement I Certify That: Therapy Services Provided, Therapy Plan Established, Therapy Plan Reviewed Recertification Information Recertification Information Initial Certification Date 01/16/24 Recertification Start Date 04/15/24 Recertification Due Date 07/13/24 Reasons to Continue Skilled Therapy Pt is participating in a lymphedema surveillance program and will benefit from continued surveillance to provide early intervention and treatment in the event that she develops lymphedema in order to achieve best outcomes as well as continued pt education on risk reduction practices. Rehabilitation Potential Good Click To Default 'Per treatment plan' Per treatment plan Continued Plan of Care and Interventions Per treatment plan Provider Signature Required Yes Provider Signature Shows Agreement With POC & Medical Necessity Physician NPI Number Write NPI# Here Physician Comment/Change Comment or Changes Physician Signature & Date Requested Please Sign/Date Here
== END 2024-09-10 13:36 | disposition home or self-care (01) ==
PROVIDERS: PCP Family Medicine; Visit Provider Surgery Surgical Oncology
DX: I61.9 Nontraumatic intracerebral hemorrhage, unspecified (principal); C50.912 Malignant neoplasm of unspecified site of left female breast; Z17.1 Estrogen receptor negative status [ER-]; Z51.89 Encounter for other specified aftercare
CPT/HCPCS: 97110; 97140; 97162; 97165; 97530; 97535; X5282

== ENCOUNTER 2024-10-18 10:58 | Emergency (ER) | payer MEDICARE, BC, SELFPAY ==
--- OUTSIDE RECORDS SUMMARY | 2010-12-08 10:15 | XMS_ITS | Continuity of Care Document ---
Author Organization [facility] Address [address] [place] [address] Phone Care Team Providers Care Program Director Substance Abuse Name Role Phone Wilder Campbell MD Unavailable Unavailable Procedures Procedure Date Preven Meds E&m Estab Pt; 011 Cytopath Cerv/vag Thin Prep; R 11 Preven Meds E&m Estab Pt; 10 Cytopath Cerv/vag Thin Prep; R 10 Preven Meds E&m Estab Pt; 09 Cytopath Cerv/vag Thin Prep; R 09 Preven Meds E&m Estab Pt; 08 Cytopath Cerv/vag Thin Prep; R 08 Preven Meds E&m Estab Pt; 07 Cytopath Cerv/vag Thin Prep; R 07 Advance Directives Directive Yes / No Effective Date File Name No Information Encounters Encounter Description Practice Location Reason(s) For Visit Diagnoses Date Provider Providers Copied on Encounter Preven Meds E&m Estab Pt; [facility], [address], [place], [place], [id number], [place] tel:[phone] Baylee valle (old) No Information Adrian Hdz. [address] [place], [address], [place]. tel:[phone] Preven Meds E&m Estab Pt; [facility], [address] [address], [place], [place], [address] [place] [address], tel:[phone] NEOB-Gahan na (old) No Information Adrian Hdz. [address] [place] [address], [address] [place] [address]. tel:[phone] Preven Meds E&m Estab Pt; 406 [facility], [address], [address] [place] [address], tel:[phone] NEOB-Gahan na (old) No Information Adrian Hdz. [address] [place] [address], [facility], . tel:[phone] Preven Meds E&m Estab Pt; 406 [facility], [address], [address] [place] [address], tel:[phone] NEOB-Gahan na (old) No Information Adrian Hdz. [address] [place] [address], [address] [place] [address]. tel:[phone] Preven Meds E&m Estab Pt; [address], [address], [address] [place] [address], tel:[phone] NEOB-Gahan na (old) No Information Adrian Hdz. [address] [place] [address], [address] [place] [address]. tel:[phone] Family History Family Member Type Diagnosis Age At Onset No Information Payers Payer name Insurance type Covered democrat ID Vielka hinkle(s) [place] Blue Access PPO-Prefix P [id number] Social History Type Description Quantity Date Captured Comments Sex Female Smoking Status No Information Chief Complaint And Reason For Visit No Information Reason For Referral Reason For Referral No Information History Of Present Illness Encounter Date Complaint History Of Prese nt Illness No Information Functional Status Date Functional Assessmen t No Information Instructions Date Instruction Additional Infor mation No Information Assessments Type Assessment Date No Information Patient Care Teams Name Effective Dates (start - stop) Status Members No Information
--- OUTSIDE RECORDS SUMMARY | 2010-12-08 10:15 | XMS_ITS | Continuity of Care Document ---
Author Organization [facility] Address [address] [place] [address] Phone Care Team Providers Care Site Planner Name Role Phone Wilder Campbell MD Unavailable [...] on Encounter Preven Meds E&m Estab Pt; [facility], [address], [place], [place], [id number], [place] tel:[phone] Baylee valle (old) No Information Adrian Hdz. [address] [place], [address], [place]. tel:[phone] Preven Meds E&m Estab Pt; [facility], [address] [address], [place], [place], [address] [place] [address], tel:[phone] NEOB-Gahan na (old) No Information Adrian Hdz. [address] [place] [address], [address] [place] [address]. tel:[phone] Preven Meds E&m Estab Pt; 406 [facility], [address], [address] [place] [address], tel:[phone] NEOB-Gahan na (old) No Information Adrian Hdz. [address] [place] [address], [facility], . tel:[phone] Preven Meds E&m Estab Pt; 406 [facility], [address], [address] [place] [address], tel:[phone] NEOB-Gahan na (old) No Information Adrian Hdz. [address] [place] [address], [address] [place] [address]. tel:[phone] Preven Meds E&m Estab Pt; [address], [address], [address] [place] [address], tel:[phone] NEOB-Gahan na (old) No Information Adrian Hdz. [address] [place] [address], [address] [place] [address]. tel:[phone] Family History Family Member Type Diagnosis Age At Onset No Information Payers Payer name Insurance type Covered republican ID Vielka hinkle(s) [place] Blue Access PPO-Prefix P [id number] Social History Type Description Quantity Date Captured [...]
--- OUTSIDE RECORDS SUMMARY | 2024-10-18 11:00 | XMS_ITS | Clinical Summary ---
Author Organization [employer] 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 Active vit-min eye [id number] 0mg (PreserVision AREDS) capsule Take 1 Capsule by mouth two times daily. Active WalkerIndication s:S/P craniotomy,Chron ic subdural hematoma (HC) Walker with front wheels for home use. 1 Each 10/24/19 Active acetaminophen (TYLENOL EXTRA STRGTH) 500 mg tabletIndication s:Malignant neoplasm of left breast in female, estrogen receptor negative (HC) Take 2 Tablets (1,000 mg) by mouth every 6 hours if needed for Pain. Max acetaminophen dose: 4000mg in 24 hrs. 10/18/19 025 Discontin ued(*Bouchra ent states no longer taking) polyethylene glycoL (MIRALAX) 17 gram/scoop powderIndication s:Constipation, unspecified constipation type Take 1 scoop (17 g) by mouth or nasogastric tube once daily if needed for Constipation. 510 g 4 9:26 AM CDT 10/25/19 24 025 Discontin ued(*Bouchra ent states no longer taking) sennosides-docus ate (SENOKOT S) (8.6-50 mg) tabletIndication s:Constipation, unspecified constipation type Take 1-4 Tablets by mouth 2 times daily if needed for Constipation. 40 Tablet 4 9:26 AM CDT 10/25/19 025 Discontin ued(*Bouchra ent states no longer taking) hydrocortisone 1 % cream Apply 1 Strip topically to affected area(s) 4 times daily if needed for Itching. 025 Discontin ued(*Bouchra ent states no longer taking) Active Problems Problem Noted Date Diagnosed Date Monoallelic mutation of CHEK2 gene in female pat ient 12/17/2023 Overview (12/17/2023): [place] has one germline CHEK2 frameshift mutation, the common 1100del variant. See detailed letter dated 12/17/23 from cancer genetic counselor. 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 [address] [address] Maddi Niño MD Follow Up (ANNUAL F/U-ECHO PRIOR PT states feeling fine. No cardiac symptoms today. Discuss echo results.) 10/15/[address] [facility] [address] [address] Niki Ingram <No scans attached> 10/14/2024 Travel 10/07/2024 11:00 AM CDT Ancillary Procedure [facility] [address] [address] 10/06/2024 Travel from Last 3 Months Family History [...] Ambulatory Vulnerability No t on file 10/20/2023 Utilities Answer Date Recorded Do you have trouble paying f or utilities (for example, heat, electricity, water, phone)? 1 10/20/2023 Comments No Sex and Gender Information Value Date Recorded Sex Assigned at Not on file Legal Sex Female 2:41 PM CDT Gender Identity Not on file Sexual Orientation Not on file Obstetrics History Last Filed Vital Signs Vital Sign Reading Time Taken Comments Blood Pressure 102/59 10/15/2024 12:54 PM CDT Pulse 74 10/15/2024 12:54 PM CDT Temperature 36.6 C (97.8 F) 12/17/2023 11:49 AM CDT Respiratory Rate 17 12/06/2023 11:44 AM CDT Oxygen Saturation 98% 10/15/2024 12:54 PM CDT Inhaled Oxygen Concentration - - Weight 59.5 kg (131 lb 3.2 oz) 10/15/2024 12:54 PM CDT Height 175.3 cm (5' 9) 10/15/2024 12:54 PM CDT Body Mass Index 19.37 10/15/2024 12:54 PM CDT Plan of Treatment Health Maintenance Due Date Last Done Comments Tetanus booster 1960 Depression screening for age 12+ 1961 Hepatitis C screening for age 18-79 05/27/1967 Pneumococcal series for age 50+ (1 of 2 - PCV) 1968 Colonoscopy through age 75 1994 Lipids for age 45-75 1994 Zoster (shingles) series for age 50+ (1 of 2) 05/27/1999 DEXA/DXA scan for age 65+ 2014 Medicare Wellness for age 65+ 2014 RSV vaccine for adults or (1 - 1-dose 75+ series) 2024 COVID-19 vaccine series (2023- season) 2024 12/13/2023, 12/28/2022, 08/01/2022, Additional history exists Influenza Vaccine (#1) 2024 BMI (ht and wt on same day) for age 18+ 10/15/2025 10/15/2024, 12/17/2023, 12/06/2023, Additional history exists Hepatitis B series for 19+ Aged Out N o longer eligible based on patient's age to complete this topic Medical Devices Implanted Type Area Bee Farmer Device Identifier Shelf Expiration Date Model / Serial / Lot Dura Neuro 2x2in Duragen Plusnon-Sut - [id number] Implanted:Qty: 1 on 10/22/2023 by Sourav Alegre MD at [facility] Right: [employer] Maggy 07/23/2026 [id number] / / [id number] Screw Neuro 4mm Matrixneuro Slf Drill Titnm - [id number] Implanted:Qty: 8 on 10/22/2023 by Sourav Alegre MD at [facility] Right: [employer] J And J Depuy CMF [id number] 4.01 / / Devils Elbow Hole Cover Neuro 17mm Synthes Low Pro Titnm Implanted:Qty: 1 on 10/22/2023 by Sourav Alegre MD at [facility] Right: [employer]ium [id number] / / Description:Ethel Hole Cover Neuro 17mm Synthes Low Pro Titnm Ethel Hole Cover Neuro 17mm Synthes Low Pro Shunt Implanted:Qty: 1 on 10/22/2023 by Sourav Alegre MD at [facility] Right: [employer] [id number] / / Description:Ethel Hole Cover Neuro 17mm Synthes Low Pro Shunt Procedures Procedure Name Priority Date/Time Associated Diagnosis Comments ECHO TTE COMPLETE WO CONTRAST Routine 10/07/2024 11:41 AM CDT Aortic valve insufficiency, etiology of cardiac valve disease unspecified from Last 3 Months Results * ECHO TTE COMPLETE WO CONTRAST (10/07/2024 11:41 AM CDT) AORTIC VALVE MEAN PG 5 mmHg PEAK TR VELOCITY 2.3 m/s LVEDD 4.6 cm EJECTION FRACTION 55 - 60% Anatomical Region Laterality Modality Ultrasound 10/07/2024 10:5 8 AM CDT Narrative 10/07/2024 12:12 PM CDT ECHOCARDIOGRAM ITALIA JETT : 1950 74 years Study Date: 10/07/2024 10:58:29 AM Gender: F BP: 129/60 mmHg Height: 175.26 cm BSA: 1.71 m Weight: 58.06 kg Tech: ROSE Referring MD: MADDI NIÑO Site: [facility] Reading Location: [place] - OP Patient Location: Outpatient. Procedure: 2D, Color Doppler and Spectral Doppler. Indication for study: Aortic valve insufficiency Cardiac Rhythm: Normal sinus and with premature ventricular contractions.Study quality: Good. Final Impressions: 1. Normal LV size, normal wall thickness, normal global systolic function with an estimated EF of 55 - 60%. 2. The aortic valve is normal and trileaflet, no stenosis and moderate regurgitation. 3. Tricuspid valve is normal, mild-moderate tricuspid regurgitation. 4. The inferior vena cava is dilated, respiratory size variation greater than 50%. Comparison Compared to prior exam images and report of 09/26/2023: - Aortic regurgitation has increased. Chamber Sizes and Function Normal left ventricular size, normal wall thickness, normal global systolic function with an estimated EF of 55 - 60%. No resting regional wall motion abnormality visualized. Left atrial size is normal. Left atrial pressure is normal. Right ventricular cavity size is normal, global systolic RV function is normal. The right atrium is normal. The pulmonary artery is of normal size and origin. The sinus of Valsalva is normal sized. The ascending aorta is not well visualized. Valves, RV Pressures and Diastolic Function The aortic valve is normal in structure and trileaflet, no stenosis and moderate regurgitation. The mitral valve is sclerotic, mild mitral regurgitation. Spectral Doppler shows Grade 1 pattern of LV diastolic filling. The tricuspid valve is normal in structure, mild-moderate tricuspid regurgitation. The tricuspid regurgitant velocity is 2.3 m/s, the estimated right ventricular systolic pressure is 21 mmHg plus right atrial pressure. The pulmonic valve is normal. Trace pulmonary regurgitation. Masses, Effusion, Shunts There is no pericardial effusion. The inferior vena cava is dilated, respiratory size variation greater than 50%. No left to right shunting was detected by limited color flow Doppler interrogation of the interatrial septum. MEASUREMENTS AND CALCULATIONS 2-D Measurements and LV Function: LVID (d) 4.6 cm LV FS% (2D) 30 % LVID (s) 3.2 cm LVOT diameter 2.0 cm IVS (d) 0.6 cm HR 72 bpm LVPW (d) 0.7 cm LA Vol index 28 ml/m2 Ao Sinus 2.8 cm RV Basal Diam 3.1 cm Ao Sinus ULN 3.7 cm Asc Ao ULN 3.9 cm Diastology: Mitral Tissue Doppler E Peak 0.6 m/s e', Septum 0.05 m/s A Peak 0.7 m/s e', Lateral 0.07 m/s E/A 0.8 E/e' Average 10.02 DT 203 msec Aortic Valve: Vmax 1.5 m/s EDUARD (V) 1.83 cm AI P 1/2 560 msec VTI 0.32 m EDUARD (I) 1.87 cm LVOT V max 0.9 m/s Max PG 9 mmHg LVOT VTI 0.19 m Mean PG 5 mmHg SV 59 ml Dim Index 0.60 SV index 35 ml/m CO 4.3 l/min CI 2.5 l/min/m Mitral Valve: MVA 3.7 cm MV P 1/2 59 msec Tricuspid Valve and estimated PA pressures: TR Vmax 2.3 m/s TAPSE 2.2 cm TR maxG 21 mmHg . This study was interpreted by an [facility] accredited facility. Final Procedure Note Kam Pritchard MD - 10/07/2024 ECHOCARDIOGRAM ITALIA JETT : 1950 74 years Study Date: 10/07/2024 10:58:29 AM Gender: F BP: 129/60 mmHg Height: 175.26 cm BSA: 1.71 m Weight: 58.06 kg Tech: ROSE Referring MD: MADDI NIÑO Site: [facility] Reading Location: [facility] - OP Patient Location: Outpatient. Procedure: 2D, Color Doppler and Spectral Doppler. Indication for study: Aortic valve insufficiency Cardiac Rhythm: Normal sinus and with premature ventricularcontractions.Study quality: Good. Final Impressions: 1. Normal LV size, normal wall thickness, normal global systolic functionwith an estimated EF of 55 - 60%. 2. The aortic valve is normal and trileaflet, no stenosis and moderateregurgitation. 3. Tricuspid valve is normal, mild-moderate tricuspid regurgitation. 4. The inferior vena cava is dilated, respiratory size variation greaterthan 50%. Comparison Compared to prior exam images and report of 09/26/2023: - Aortic regurgitation has increased. Chamber Sizes and Function Normal left ventricular size, normal wall thickness, normal globalsystolic function with an estimated EF of 55 - 60%. No resting regionalwall motion abnormality visualized. Left atrial size is normal. Leftatrial pressure is normal. Right ventricular cavity size is normal, globalsystolic RV function is normal. The right atrium is normal. The pulmonaryartery is of normal size and origin. The sinus of Valsalva is normalsized. The ascending aorta is not well visualized. Valves, RV Pressures and Diastolic Function The aortic valve is normal in structure and trileaflet, no stenosis andmoderate regurgitation. The mitral valve is sclerotic, mild mitralregurgitation. Spectral Doppler shows Grade 1 pattern of LV diastolicfilling. The tricuspid valve is normal in structure, mild-moderatetricuspid regurgitation. The tricuspid regurgitant velocity is 2.3 m/s,the estimated right ventricular systolic pressure is 21 mmHg plus rightatrial pressure. The pulmonic valve is normal. Trace pulmonaryregurgitation. Masses, Effusion, Shunts There is no pericardial effusion. The inferior vena cava is dilated,respiratory size variation greater than 50%. No left to right shunting wasdetected by limited color flow Doppler interrogation of the interatrialseptum. MEASUREMENTS AND CALCULATIONS 2-D Measurements and LV Function: LVID (d) 4.6 cm LV FS% (2D) 30 % LVID (s) 3.2 cm LVOT diameter 2.0 cm IVS (d) 0.6 cm HR 72 bpm LVPW (d) 0.7 cm LA Vol index 28 ml/m2 Ao Sinus 2.8 cm RV Basal Diam 3.1 cm Ao Sinus ULN 3.7 cm Asc Ao ULN 3.9 cm Diastology: Mitral Tissue Doppler E Peak 0.6 m/s e', Septum 0.05 m/s A Peak 0.7 m/s e', Lateral 0.07 m/s E/A 0.8 E/e' Average 10.02 DT 203 msec Aortic Valve: Vmax 1.5 m/s EDUARD (V) 1.83 cm AI P 1/2 560 msec VTI 0.32 m EDUARD (I) 1.87 cm LVOT V max 0.9 m/s Max PG 9 mmHg LVOT VTI 0.19 m Mean PG 5 mmHg SV 59 ml Dim Index 0.60 SV index 35 ml/m CO 4.3 l/min CI 2.5 l/min/m Mitral Valve: MVA 3.7 cm MV P 1/2 59 msec Tricuspid Valve and estimated PA pressures: TR Vmax 2.3 m/s TAPSE 2.2 cm TR maxG 21 mmHg . This study was interpreted by an [facility] accredited facility. Final [facility] Felipe Niño MD ECHO ORD Final Result from Last 3 Months Insurance MEDICARE PART B HB ONLY MEDICARE PART A HB ONLY [facility] MEDICARE PB ONLY MEDICARE PPS [facility] Advance Directives * Full Code (Latest Code [...] Comments Code Status Discussion: Discussed Care Teams Dry Mill Operator Relationship Specialty Start Date End Date Sandi Abdullahi MD [address] [place] [address] PCP - General Family Practice 02/08/17 Amber Foy, RN [address] [address] Nurse Navigator - Oncology Registered Nurse 09/21/23 Rafael Angel MD [address] [address] Surgery - Oncology 09/21/23
[2024-10-18 11:07] VITALS: BP 134/71; PULSE 86; RESP 18; TEMP 37.9; O2SAT 98; BMI 19.5
--- NOTE | 2024-10-18 11:14 | ED_ITS ---
HPI - General Adult General Chief complaint: Allergic Reaction Stated complaint: Latex allergy reaction Time Seen by Provider: 10/18/24 11:15 History of Present Illness HPI narrative: Patient had a zio patch on for about 2.5 days. She has known reaction to adhesives and has severe dermatological reaction around this area and she removed patch early due to discomfort. She is most concerned with new appearance of lymphedema in right chest that she has never had before. She has had a double mastectomy. 74 year old woman presenting to the emergency department with concern allergic reaction. Apparently had a ZIO patch on for little more than 2 days. Just could not stand the discomfort and itching anymore and removed it. She notes marked redness. She is concerned in particular due to swelling or ?lymphedema? occurring in the lower right chest that has not experienced before. Underlying history of bilateral mastectomy. Skin has been oozing some liquid. She has not had a fever. Is not having marked pain just more itch and irritation in maybe some burning. No treatments attempted yet. Pictures of how has reacted in the past to adhesives. Rather significant areas of erythema and blistering demonstrated on forearms in these older pictures from bandages. She is not having any sensation of chest pain or difficulty breathing or throat tightening. Related Data Home Medications ?Medication ?Instructions ?Recorded ?Confirmed cholecalciferol (vitamin D3) 25 25 mcg PO QDAY 4 09/09/24 mcg (1,000 unit) capsule mecobalamin (vitamin B12) 1,000 1,000 mcg sublingual Q DAY 01/01/24 09/09/24 mcg disintegrating tablet,sublingual vit C 250 mg-vit E 90 mg-zinc 40 1 tab PO BID 01/01/24 09/09/24 mg-copper 1 [id number] capsule (PreserVision AREDS-2) Previous Rx's ?Medication ?Instructions ?Recorded bacitracin 500 unit/gram topical 1 applic topical BID #28 grams 10/18/24 ointment hydrocortisone 2.5 % topical cream 1 applic topical TI D PRN #28 grams 10/18/24 Allergies Allergy/AdvReac Type Severity Reaction Status Date / Time adhesive Allergy Severe Blister Verified 09/09/24 11:40 meperidine Allergy Severe Nightmare Verified 09/09/24 11:40 metoprolol Allergy Severe Confusion Verified 09/09/24 11:40 midazolam Allergy Severe cognitive Verified 09/09/24 11:40 impairment propoxyphene Allergy Severe Confusion Verified 09/09/24 11:40 ibuprofen Allergy Unknown Abdominal Verified 09/09/24 11:40 Pain latex Allergy Unknown Verified 09/09/24 11:40 Review of Systems Status of ROS: Reports: 6 or more systems reviewed and unremarkable except as noted in History and below [facility] Medical History Mixed sleep apnea ?G47.39 - Other sleep apnea (ICD-10) Intermittent palpitations ?R00.2 - Palpitations (ICD-10) Subdural hematoma (10/19/23) ?S06.5XAA - Traumatic subdural hemorrhage with loss of consciousness status unknown, initial encounter (ICD-10) Vegetarian diet ?Z78.9 - Other specified health status (ICD-10) Vitamin D deficiency ?E55.9 - Vitamin D deficiency, unspecified (ICD-10) Closed head injury (~07/2023) ?S09.90XA - Unspecified injury of head, initial encounter (ICD-10) Tubular adenoma (2017) ?D36.9 - Benign neoplasm, unspecified site (ICD-10) Polyp of colon (11/2014) ?K63.5 - Polyp of colon (ICD-10) Migraine headache ?G43.909 - Migraine, unspecified, not intractable, without status migrainosus (ICD-10) Macular degeneration ?H35.30 - Unspecified macular degeneration (ICD-10) Low vitamin B12 level ?E53.8 - Deficiency of other specified B group vitamins (ICD-10) Herpes zoster ?B02.9 - Zoster without complications (ICD-10) Thyroid nodule (04/06/22) ?E04.1 - Nontoxic single thyroid nodule (ICD-10) Surgical History Status post craniotomy (10/22/23) ?Z98.890 - Other specified postprocedural states (ICD-10) S/P mastectomy (09/28/23) ?Z90.10 - Acquired absence of unspecified breast and nipple (ICD-10) History of right mastectomy (10/2003) ?Z90.11 - Acquired absence of right breast and nipple (ICD-10) History of hysterectomy with oophorectomy (08/2003) History of esophagogastroduodenoscopy (EGD) (2014) ?Z98.890 - Other specified postprocedural states (ICD-10) History of colonoscopy ?Z98.890 - Other specified postprocedural states (ICD-10) History of bilateral inguinal hernia repair (1999) ?Z98.890 - Other specified postprocedural states (ICD-10) ?Z87.19 - Personal history of other diseases of the digestive system (ICD-10) Family History Maternal Grandfather Diabetes Maternal Grandmother Diabetes Mother Gastric cancer Father Stroke Paternal Grandfather Rectal cancer Stroke Colon cancer, Onset Age: 60 Social History Narrative: 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 She lives alone in [place]. originally from [place] Non smoker Does not drink alcohol vegetarian diet walking daily 25 min , Has Cat Oreo Sister, Mason, from [place] is healthcare power of research attorney. Code status is DNR What is your current living situation?: I presently have a place to live Problems where you live: no known problems Problems where you live details: n/a In the past 12 months, utilities in danger of being shut off: no In past 12 months, lack of transportation kept you from medical appts, meetings, work, or getting things needed for daily living: no In the past 12 mos, have been you worried that your food would run out before you had money to buy more?: never true In the past 12 mos, the food you bought just didn't last and you didn't have money to buy more?: never true Smoking Status: Never smoker Do you use any of these nicotine containing products: None Second hand tobacco smoke exposure: No How often do you have a drink containing alcohol: never How often do you have six or more drinks on one occasion: Never AUDIT-C Alcohol total score: 0 Non-prescribed substance use: denies use Caffeine: No How often does anyone, including family, friends and others, physically hurt you : never How often does anyone, including family, friends and others, insult or talk down to you: never How often does anyone, including family, friends and others, threaten you with harm: never How often does anyone, including family, friends and others, scream or curse at you: never service: No Exam Narrative: Exam Narrative: Pleasant. NAD. Breathing easily. No stridor. Neck is supple without lymphadenopathy. Examination of the left chest does show postoperative changes consistent with mastectomy. Well-healed surgical incisions. Some involution of the scarring or suturing at the left lower chest. There is some puffiness to this tissue in this area in particular. Without erythematous changes in this area. On the upper left chest though there are 2 palm sized areas of erythema with some crusting oozing over the top. Do not appreciate a great deal of induration nor is there significant tenderness. Const: Vital Signs, click to edit/add: Vital Signs - 24 hr 10/18/24 11:07 Temperature 100.2 F H Pulse Rate [Pulse Oximeter] 86 Respiratory Rate 18 Blood Pressure [Ri ght Upper Arm] 134/71 Pulse Oximetry 98 Oxygen Delivery Me thod Room Air Documenting provider has reviewed patient's vital signs: yes Course Vital Signs Vital signs: Initial Vital Signs Temperature 100.2 F H 10/18/24 11:07 Temperature Source Temporal Artery Scan 10/18/24 11:07 Pulse Rate 86 10/18/24 11:07 Respiratory Rate 18 10/18/24 11:07 Blood Pressure 134/71 10/18/24 11:07 Blood Pressure Mean 92 10/18/24 11:07 Pulse Oximetry 98 10/18/24 11:07 Oxygen Delivery Method Room Air 10/18/24 11:07 Vital Signs Temperature 100.2 F H 10/18/24 11:07 Pulse Rate 86 10/18/24 11:07 Respiratory Rate 18 10/18/24 11:07 Blood Pressure 134/71 10/18/24 11:07 Pulse Oximetry 98 10/18/24 11:07 Oxygen Delivery Method Room Air 10/18/24 11:07 Temperature 100.2 F H 10/18/24 11:07 Pulse Rate 86 10/18/24 11:07 Respiratory Rate 18 10/18/24 11:07 Blood Pressure 134/71 10/18/24 11:07 Pulse Oximetry 98 10/18/24 11:07 Oxygen Delivery Method Room Air 10/18/24 11:07 Medical Decision Making MDM Narrative Medical decision making narrative: I think this fluid mobilization is to be expected in the lower upper chest given postoperative nature as well as new recent inflammatory changes. I do not think there is secondary bacterial infection at this time. We discussed options and care. I think it would hold on oral steroids at this point. I do not think would need oral antibiotic but would consider topical. This does appear to be an adhesive reaction and consistent with history. Is requesting detailed care recommendations. Did give white petroleum jelly from our stock. See patient discharge plan for further discussion The fluid collection/lymphedema might increase as this process continues. Alternatives to treatment are 1. simply keeping skin moist with the dispensed white petroleum jelly. 2. Combining prescribed hydrocortisone cream 1:1 with antibiotic cream (liz could only find bacitracin ointment to prescribe) 3. Trying diphenhydramine cream -- more effective for itch probably but less of an effect on the inflammation Reason for re-evaluation would be no improvement after a week, marked increase in redness/skin thickening/heat/pain which might indicate secondary infection. Medical Records Medical records reviewed: Yes I reviewed the patient's medical records Discharge Plan Discharge Clinical Impression: Allergic reaction to adhesive, Rash Patient Disposition: Home, Self-Care Condition: Stable Additional Instructions: The fluid collection/lymphedema might increase as this process continues. Alternatives to treatment are 1. simply keeping skin moist with the dispensed white petroleum jelly. 2. Combining prescribed hydrocortisone cream 1:1 with antibiotic cream (liz could only find bacitracin ointment to prescribe) 3. Trying diphenhydramine cream -- more effective for itch probably but less of an effect on the inflammation Reason for re-evaluation would be no improvement after a week, marked increase in redness/skin thickening/heat/pain which might indicate secondary infection. Prescriptions: New hydrocortisone 2.5 % cream 1 applic topical TID PRNQty: 28 0RF bacitracin 500 unit/gram ointment 1 applic topical BID Qty: 28 0RF No Action PreserVision AREDS-2 250-90-40-1 mg capsule 1 tab PO BID cholecalciferol (vitamin D3) 25 mcg (1,000 unit) capsule 25 mcg PO QDAY mecobalamin (vitamin B12) 1,000 mcg tablet,disintegrating 1,000 mcg sublingual QDAY Rx Instructions: place tablet under tongue and allow to dissolve for at least30 secs before swallowing Follow Up/Referrals: Sandi Abdullahi MD [Primary Care Provider, Family Practice] Stand Alone Forms: [employer] Info Instructions
== END 2024-10-18 12:00 | disposition home or self-care (01) ==
PROVIDERS: Emergency Provider Family Medicine; PCP Family Medicine
DX: L23.3 Allergic contact dermatitis due to drugs in contact with skin (principal)
CPT/HCPCS: 99283; 99284

== ENCOUNTER 2024-11-17 11:00 | Outpatient (RCR) | payer MEDICARE, BC, SELFPAY | END 2024-12-30 23:59 | disposition home or self-care (01) | LOC: CCIC 11:00 | PROVIDERS: PCP Family Medicine; Visit Provider Internal Medicine Hematology & Oncology | DX: D05.12 Intraductal carcinoma in situ of left breast (principal); Z17.1 Estrogen receptor negative status [ER-]; Z90.13 Acquired absence of bilateral breasts and nipples; Z15.09 Genetic susceptibility to other malignant neoplasm | CPT/HCPCS: 99213; 99214; G0463 ==

== ENCOUNTER 2024-11-27 08:10 | Outpatient (CLI) | payer MEDICARE, BC, SELFPAY ==
--- NOTE | 2024-11-27 08:15 | CRLHL7_ITS ---
For Patients: As a result of the Cures Act, medical imaging exams and procedure reports are released immediately into your electronic medical record. You may view this report before your referring provider. If you have questions, please contact your health care provider. LEFT AXILLA ULTRASOUND CLINICAL HISTORY: Left axillary lumps. COMPARISON: 01/21/2024. TECHNIQUE: Real-time ultrasound imaging of LEFT axilla with imaging documentation. FINDINGS: Targeted ultrasound of LEFT axilla performed. Similar LEFT axillary lymph nodes are present including a previously biopsied lymph node. Normal central fatty radha noted. No abnormal vascularity. The largest three lymph nodes measure 1.4 x 0.6 x 1.2 cm, 1.4 x 0.6 x 0.9 cm and 1.1 x 0.5 x 0.6 cm. IMPRESSION: No significant interval change in the LEFT axillary lymph nodes. RECOMMENDATIONS: Clinical follow-up. Results and recommendations were discussed with the patient at the time of the exam. A lay language report of this examination will be provided to the patient. BI-RADS Category 2: Benign. Dictated by Poncho Garay MD @ 11/27/2024 12:06:40 PM /sp SP/Dictated by: Poncho Garay MD @ 11/27/2024 12:06:00 PM (Electronically Signed)
== END 2024-11-27 08:11 | disposition home or self-care (01) ==
LOC: US 08:11
PROVIDERS: PCP Family Medicine; Visit Provider Internal Medicine Hematology & Oncology
DX: C50.912 Malignant neoplasm of unspecified site of left female breast (principal); R22.32 Localized swelling, mass and lump, left upper limb
CPT/HCPCS: 76882

== ENCOUNTER 2025-02-26 08:45 | Outpatient (CLI) | payer MEDICARE, BC, SELFPAY | END 2025-02-26 08:46 | disposition home or self-care (01) | LOC: NFLDREF 03-03 09:29 | PROVIDERS: PCP Family Medicine; Referring Provider Family Medicine; Visit Provider Family Medicine | DX: E55.9 Vitamin D deficiency, unspecified (principal); R53.83 Other fatigue; Z13.9 Encounter for screening, unspecified; Z13.6 Encounter for screening for cardiovascular disorders | CPT/HCPCS: 80053; 80061; 82306; 82607; 82728 ==